=== PATIENT | female | born 1980 | race African-American/Black ===

== ENCOUNTER 2016-07-20 18:43 | Emergency (ER) | payer BC, OTHER ==
[~2016-07-20] VITALS: Ht 188 cm; Wt 181.4 kg
[~2016-07-20 18:43] MED LIST: ACIPHEX 20 MG T20 MG PO; ADIPEX-P37.5 M1 PO; AMBIEN 5 MG TABL5 M1 PO; APAP500; AZITHROMYCIN 2250 MG PO; BACTRIM DS TAB1 EACH PO; BISACODYL SUPP10 MG RECTAL; COLACE 100 MG100 MG PO; CYCLOBENZAPRINE5 MG PO; CYMBALTA30 MG PO; DURAGESIC1 EAC2 TRANSDERM; FENTANYL PATCH75 MCG; FLEXERIL; FLEXERIL PO; HYDROCODONE-AP1 EAC6 PO; HYDROCODONE-APA1 TA1 PO; HYSINGLA ER30 MG PO; IBUPROFEN 800800 M1 PO; LASIX 20 MG TAB20 MG PO; LOMOTIL TABLET1 EACH PO; LYRICA 50 MG50 MG PO; MEDROL DOSPAK21 TA1 PO; METHADONE HCL 110 M1 PO; MILK OF MA2400 MG/10 PO; MIRALAX17 GM PO; MORPHINE SULFAT60 M1 PO; MS CONTIN15 MG PO; NABUMETONE 500500 M1 PO; NAPROSYN500 MG PO; NORCO 5-325 TA1 EACH PO; ONDANSETRON HCL4 M2 PO; PERCOCET 10-321 EACH PO; PHENERGAN25 MG RE; PREDNISONE 20 M20 MG PO; PREVACID; PROCTOCREAM-HC30 G1 RC; RANITIDINE 150150 MG PO; SENOKOT-S1 TA1 PO; SPIRONOLACTONE50 MG PO; TIZANIDINE HCL4 M1 PO; ULTRA-LIGHT RO1 EACH MC; ULTRAM 50MG TAB50 MG PO; VALIUM2 MG PO; VALIUM5 MG PO; VICODIN 5-5001 EACH PO; ZOFRAN4 MG PO
[2016-07-20] MEDS ORDERED: FLEXERIL PO (18:47)
[2016-07-20] MEDS ORDERED: NORCO 10-325 T1 EACH PO (18:48)
[2016-07-20] MEDS ORDERED: ALEVE220 M1 PO (18:48)
[2016-07-20] MEDS ORDERED: NORCO 5-325 TA1 EACH PO (20:07)
[2016-07-20] MEDS ORDERED: CYCLOBENZAPRINE10 MG PO (20:11)
[2016-07-20] MEDS ORDERED: PREDNISONE 20 M20 MG PO (20:11)
[2016-07-20 20:48] VITALS: BP 157/100
== END 2016-07-20 20:49 | disposition home or self-care (01) ==
LOC: ER 18:43
DX: M51.25 Other intervertebral disc displacement, thoracolumbar region (principal); M19.90 Unspecified osteoarthritis, unspecified site; K21.9 Gastro-esophageal reflux disease without esophagitis; Z90.710 Acquired absence of both cervix and uterus; D86.9 Sarcoidosis, unspecified; Z88.6 Allergy status to analgesic agent; Z88.8 Allergy status to other drugs, medicaments and biological substances

== ENCOUNTER → 2016-10-28 | Outpatient (CLI) | payer BC, OTHER ==
[~2016-10-28] VITALS: Ht 188 cm; Wt 206.8 kg
[~2016-10-28] MED LIST changes: +ALEVE220 M1 PO; +CYCLOBENZAPRINE10 MG PO; +NORCO 10-325 T1 EACH PO
--- NOTE | ~2016-10-28 | HPC ---
[facility] [place] [address] PAIN MANAGEMENT CONSULTATION Name: UCHE TRAN Room #: REG [facility] Joel.#: [id number] Admission: 10/28/16 Attend Phys: Naun Moseley DO Discharge: Date of : 76 Report #: [id number] THIS REPORT FOR: //name// CC: Naun Holley MD DATE OF SERVICE: 10/28/2016 CHIEF COMPLAINT: Right hip pain. HISTORY OF PRESENT ILLNESS: As you know, the patient is a very pleasant, severely morbidly obese 36-year-old female who returns today in followup visit with continued right hip pain. As you are aware, the patient is planning to undergo gastric bypass surgery this year after a significant amount of weight loss according to the patient over 200 pound weight loss. She will then be a candidate for right total hip arthroplasty. She returns today in followup visit with continued right hip pain, requesting an intraarticular hip injection, she received excellent benefit with our previous injection one year ago. She returns today in followup visit requesting to undergo this procedure again today. She is placing pain today at 9/10, states her pain is constant, shooting, aching, crushing, throbbing, stabbing and tender, exacerbated with walking, activities, lying down, any kind of ADLs, improves with medications, heat, cold compresses, massage, repositioning and previous injections. She returns for an intraarticular right hip injection. ALLERGIES: SERTRALINE AND TRAMADOL. CURRENT MEDICATIONS: Cyclobenzaprine, hydrocodone, naproxen sodium and ytrl-bpe-lgarziu nonsteroidal anti-inflammatories. SOCIAL HISTORY: The patient denies tobacco, IV or illicit drug use. Admits to occasional alcoholic beverage. She is accompanied by significant other. IMAGING: No new imaging available. PHYSICAL EXAMINATION: VITAL SIGNS: Blood pressure 131/88, pulse 93, respiratory rate 22, unlabored. The patient is 100% on room air, height 6 feet 2 inches tall, weight 456 pounds, BMI calculated at 58.5. GENERAL: Well-developed, well-nourished, well-hydrated severely morbidly obese 36-year-old female appearing her stated age, placing her pain score at approximately 9/10. HEENT: Normocephalic, atraumatic. Pupils are equal, round, reactive to light. Extraocular muscles are intact. Sclerae nonicteric without injection. NEUROLOGIC: Cranial nerves 2-12 grossly intact. Speech is fluent. [address] [address] PAIN MANAGEMENT CONSULTATION Name: UCHE TRAN Room #: REG [facility]#: [id number] Admission: 10/28/16 Attend Phys: Naun Moseley DO Discharge: Date of : 78 Report #: [id number] EXTREMITIES: Show no clubbing, no cyanosis. There is 1+ nonpitting lower extremity edema. MUSCULOSKELETAL: Seated straight leg raising negative. Supine straight leg raising causes right hip pain. Tomer's test positive right, negative left. Gait is antalgic favoring right lower extremity. ASSESSMENT: 1. Right hip pain. 2. Severe osteoarthritis of the right hip. 3. Morbid obesity. 4. Chronic intractable pain. PLAN: 1. The patient returns today in followup visit requesting to undergo a right intra-articular hip injection under fluoroscopic guidance. She has done very well with previous intraarticular hip injections, hopeful to see similar improvement. She does have plans to undergo gastric bypass surgery later this year. After the gastric bypass surgery is complete and she begins to lose a significant amount of weight, she has been advised by Orthopedics that there is a possibility of a right total hip arthroplasty. The patient is excited to get moving with weight loss, so that she can obtain this right hip arthroplasty and improve her overall pain. She is making decisions in her diet currently to adjust for weight loss. We are hopeful that the patient will be able to undergo this gastric bypass sooner than later and this will start to alleviate some of the symptoms she has been experiencing from the right hip. We have consented that the patient undergo right intraarticular hip injection today. She has been advised the risks and benefits. 2. The patient was advised risks and benefits of a right intra-articular hip injection. These risks include but are not necessarily limited to bleeding, bruising, infection, worsening pain, no relief of pain, also risk of temporary or permanent muscle weakness, temporary or permanent nerve damage, possible paralysis and joint destruction. The patient states understood and wished to proceed. 3. No medication changes were made at today's visit. We did take the liberty of refilling her hydrocodone therapy. We have given the patient hydrocodone 5/325 one tab every 6 hours p.r.n. for pain. We have given the patient #60 tablets, advised the patient to take the medication only as directed. 4. The patient will return to our clinic on an as needed basis for the next in the series of right intraarticular hip injections. DESCRIPTION OF PROCEDURE: Right intraarticular hip injection under fluoroscopic guidance. After obtaining written consent, the patient was taken back to fluoroscopy suite, placed in supine position. The patient had a pillow placed under her knees for comfort. The image intensifier (C-arm) was then placed over the right [address] [address] PAIN MANAGEMENT CONSULTATION Name: UCHE TRAN Room #: REG [facility]#: [id number] Admission: 10/28/16 Attend Phys: Naun Moseley DO Discharge: Date of : 76 Report #: [id number] hip and AP imaging allowed visualization of the hip joint. Skin overlying the area was then prepped and draped in aseptic fashion using chlorhexidine. A 27-gauge 1-1/4 inch needle was then used to anesthetize skin and subcutaneous tissue with 3 mL of 1% lidocaine. A 20-gauge 6-inch spinal needle with bent tip was advanced towards the right hip under fluoroscopic guidance. Target site of the injection was the proximal portion of the femoral head. Once the joint was entered and bone was contacted, needle was retracted approximately 1 mm and aspiration noted to be negative for heme. One mL of Omnipaque was then injected demonstrating excellent right hip arthrogram. After negative aspiration for heme, 5 mL of a solution containing 1 mL 40 mg per mL, 40 mg total triamcinolone and 4 mL bupivacaine 0.5% was injected slowly. Needle retracted alf, flushed with 1 mL of bupivacaine 0.5% and removed. Sterile bandage was then placed over injection site. No new motor deficits present in lower extremity following the procedure. The patient tolerated procedure well, carefully escorted to the recovery in stable condition. No apparent complications. After meeting discharge criteria, the patient discharged home. By: 0733 [id number] Naun Moseley DO /nt
[2016-10-28 09:00] VITALS: BP 131/88
== END | disposition home or self-care (01) ==
LOC: PAIN 07:04
DX: M16.11 Unilateral primary osteoarthritis, right hip (principal); E66.01 Morbid (severe) obesity due to excess calories; G89.29 Other chronic pain; Z68.43 Body mass index [BMI] 50.0-59.9, adult; Z88.8 Allergy status to other drugs, medicaments and biological substances; Z98.890 Other specified postprocedural states

== ENCOUNTER → 2017-01-29 | Outpatient (CLI) | payer BC, OTHER ==
[~2017-01-29] MED LIST changes: +HYDROCODONE-ACE15 ML; +HYDROXYCHLOROQ200 M1 PO; +MOBIC15 MG PO; +SENNA-DOCUSATE1 EACH PO
--- NOTE | ~2017-01-29 | 2DMMODE ---
[facility] [address] [place] [address] 2 D/M-MODE ECHOCARDIOGRAM Name: MARCERNESTOEvette WATKINS Room #: REG CL [facility]#: [id number] Admission: 01/29/17 Attend Phys: Clive Holley, Discharge: Date of : 76 Date of Service: 01/29/17 1152 Report #: [id number] THIS REPORT FOR: //name// APPROVED REPORT Study performed: 01/29/2017 11:06:43 EXAM: Comprehensive 2D, Doppler, and color-flow Echocardiogram Patient Location: Out-Patient Status: routine BSA: 2.92 HR: 70 bpm Rhythm: NSR Other Information Study Quality: Adequate Indications MALDONADO. Pre-Op, morbid obesity 2D Dimensions RVDd: 32.71 mm LVEF(%): 56.82 (>50%) IVSd: 11.43 (7-11mm) LVOT Diam: 22.85 (18-24mm) LVDd: 47.79 mm PWd: 10.05 (7-11mm) Ascending Ao: 31.59 (22-36mm) LVDs: 33.56 (25-40mm) Aortic Root: 32.28 mm Vallejo's LVEF: 56.82 % Volumes Left Atrial Volume (Systole) Single Plane 4CH: 33.24 mL Single Plane 2CH: 50.29 mL LA ESV Index: 16.00 mL/m2 Aortic Valve AoV Peak Trevor.: 1.45 m/s AO Peak Gr.: 8.36 mmHg LVOT Max P.42 mmHg LVOT Max V: 1.27 m/s PAULETTE Vmax: 3.59 cm2 Mitral Valve E/A Ratio: 1.4 MV Decel. Time: 237.04 ms [facility] [address] [place] [address] 2 D/M-MODE ECHOCARDIOGRAM Name: MARCERNESTO IBARRAEvette [facility] Room #: REG [facility]#: [id number] Admission: 01/29/17 Attend Phys: Clive Holley, Discharge: Date of : 76 Date of Service: 01/29/17 1152 Report #: [id number] MV E Max Trevor.: 0.76 m/s MV A Trevor.: 0.54 m/s MV PHT: 68.74 ms IVRT: 72.66 ms Pulmonary Vein P Vein S: 0.58 m/s P Vein D: 0.36 m/s P Vein S/D Ratio: 1.61 Tricuspid Valve TR Peak Trevor.: 2.19 m/s RAP Estimate: 5.00 mmHg TR Peak Gr.: 19.13 mmHg PA Pressure: 24.00 mmHg Left Ventricle The left ventricle is normal size. There is normal LV segmental wall motion. There is normal left ventricular wall thickness. Left ventricular systolic function is normal. LVEF is 55%. Right Ventricle The right ventricle is normal size. The right ventricular systolic function is normal. Atria The left atrium size is normal. The right atrium size is normal. Aortic Valve The aortic valve is normal in structure. No aortic regurgitation is present. There is no aortic valvular stenosis. Mitral Valve The mitral valve is normal in structure. There is no mitral valve regurgitation noted. No evidence of mitral valve stenosis. Tricuspid Valve The tricuspid valve is normal in structure. Trace tricuspid regurgitation. Estimated PAP is 24mmHg Pulmonic Valve Pulmonic valve is not well visualized. Great Vessels The aortic root is normal in size. The ascending aorta is normal in size. IVC is normal in size and collapses >50% with [facility] [address] [place] [address] 2 D/M-MODE ECHOCARDIOGRAM Name: ERNESTO TRANEvette [facility] Room #: REG CL Kia#: [id number] Admission: 01/29/17 Attend Phys: Clive Holley, Discharge: Date of : 76 Date of Service: 01/29/17 1152 Report #: [id number] inspiration. Pericardium There is no pericardial effusion. <Conclusion> Left ventricular systolic function is normal. There is normal LV segmental wall motion. LVEF 55%. Structural valve disease was absent. No significant regurgitant or stenotic lesions There is no pericardial effusion. <ELECTRONICALLY SIGNED> By: Vladislav Schmidt MD, FAC 01/29/17 1152 115 115 Vladislav Schmidt MD, [facility] /INF
== END ==
LOC: CV 08:01
DX: R06.00 Dyspnea, unspecified (principal)

== ENCOUNTER 2017-03-30 14:32 | Inpatient (IN) | payer BC, OTHER ==
[~2017-03-30 14:32] MED LIST changes: +LIDOCAINE35.44 GM TOP; +RABEPRAZOLE SOD20 MG PO
[2017-03-30 16:40] VITALS: BP 150/98
[2017-03-30] MEDS ORDERED: HYSINGLA ER20 MG PO (18:20)
[2017-03-30 20:00] VITALS: BP 106/63
[2017-03-31 03:58] VITALS: BP 102/63
[2017-03-31 08:15] VITALS: BP 144/87
[2017-03-31 15:20] VITALS: BP 120/69
[2017-03-31 16:43] VITALS: BP 120/69
[2017-03-31 19:40] VITALS: BP 155/82
[2017-04-01 03:29] VITALS: BP 131/84
[2017-04-01 09:00] VITALS: BP 143/97
[2017-04-01] MEDS ORDERED: OXYCODONE HCL30 MG PO (13:00)
[2017-04-01 14:56] VITALS: BP 120/69
== END 2017-04-01 15:10 | disposition home or self-care (01) | DRG 554 ==
LOC: RAD 14:32 → 4E 16:10 → ENTRNSPT 04-01 15:03 → EDTRNSPTSTS 04-01 15:06 → 4E 04-01 15:10
DX: M16.12 Unilateral primary osteoarthritis, left hip (principal); M48.00 Spinal stenosis, site unspecified; K21.9 Gastro-esophageal reflux disease without esophagitis; E66.01 Morbid (severe) obesity due to excess calories; D86.9 Sarcoidosis, unspecified; Z79.899 Other long term (current) drug therapy; Z90.710 Acquired absence of both cervix and uterus; Z87.891 Personal history of nicotine dependence; Z88.8 Allergy status to other drugs, medicaments and biological substances
CPT/HCPCS: 10783

== ENCOUNTER → 2017-06-17 | Outpatient (CLI) | payer BC, OTHER ==
[~2017-06-17] MED LIST changes: +COZAAR 50 MG TA50 M2 PO; +FOLIC ACID1 MG PO; +HYSINGLA ER20 MG PO; +METHOCARBAMOL500 M1 PO; +METHOTREXATE 22.5 MG PO; +NEURONTIN 300300 M1 PO; +NORVASC2.5 MG PO; +OXYCODONE HCL 55 MG PO; +OXYCODONE HCL30 MG PO; +OXYCONTIN20 M1 PO; +OXYCONTIN40 MG PO; +TOPROL XL50 MG PO; +TORSEMIDE20 MG PO; +VENTOLIN HFA 1818 GM INH; +XTAMPZA ER36 MG PO; +ZANAFLEX4 MG PO
== END ==
LOC: RAD 12:40
DX: D86.9 Sarcoidosis, unspecified (principal)

== ENCOUNTER → 2017-06-24 | Outpatient (CLI) | payer BC, OTHER | LOC: CAT 08:19 | DX: D86.9 Sarcoidosis, unspecified (principal); R91.1 Solitary pulmonary nodule; M16.0 Bilateral primary osteoarthritis of hip; M47.896 Other spondylosis, lumbar region; Z88.6 Allergy status to analgesic agent; Z88.8 Allergy status to other drugs, medicaments and biological substances ==

== ENCOUNTER 2017-08-31 16:17 | Inpatient (IN) | payer BC, OTHER ==
[~2017-08-31] VITALS: Ht 188 cm; Wt 199.1 kg
--- NOTE | ~2017-08-31 | HC ---
[facility] [place] [address] CONSULTATION Name: UCHE TRAN Room #: 424-P ADM IN M.R.#: [id number] Admission: 08/31/17 Attend Phys: Clive Holley MD Discharge: Date of : 78 Report #: [id number] THIS REPORT FOR: //name// CC: Aakash Holley DATE OF SERVICE: 09/02/2017 CHIEF COMPLAINT: Bilateral lower extremity ulcerations, history of sarcoidosis. HISTORY OF PRESENT ILLNESS: This is a 36-year-old morbidly obese female patient with a history of pulmonary sarcoidosis who was admitted to the hospital with progressive shortness of breath. She also is having increasing pain, swelling and ulcerations in her legs with hard nodules. She has been seen by Dr. Michaels in the past for this. Apparently, has had recent biopsies, results of which are not known. She has been followed by Dr. Alvarez Jernigan as well. She is also wishing to have bariatric surgery in order to lose weight, has been seen by Dr. Benz. She relates that there has been some reluctance from her [place] point of view for proceeding with bariatric surgery. The patient has been on hydroxychloroquine for her sarcoidosis. She has previously been on steroids, not presently though. It is reported in her admission documentation that previous biopsies did show evidence of sarcoid skin disease. PHYSICAL EXAMINATION: VITAL SIGNS: At this time include pulse 91, respiratory rate 18, blood pressure 134/95, temperature 97.8. GENERAL: This is a chronically ill-appearing female patient who appears to be in minimal distress. HEENT: Head normocephalic. Nose and throat clear. NECK: Supple. LUNGS: Diminished. HEART: Slightly distant. ABDOMEN: Obese, nontender. EXTREMITIES: Demonstrates palpable distal pulses. There is 2+ edema bilaterally. She has multiple ulcerations with crusting and some nodularity to both lower extremities, more so on the left than on the right and more so posteriorly. CLINICAL IMPRESSION: 1. 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 2. Shortness of breath, sarcoid versus congestive heart failure. 3. Morbid obesity. RECOMMENDATIONS: At this point in time, we will use topical Silvadene and [place] [id number] CONSULTATION Name: UCHE TRAN [facility] Room #: 424-P ADM IN M.R.#: [id number] Admission: 08/31/17 Attend Phys: Clive Holley MD Discharge: Date of : 78 Report #: [id number] morphine compound with Xeroform gauze, Kerlix, Anup wraps to both lower extremities. Would appreciate additional input regarding her possibility of bariatric surgery. We will continue to follow her closely. I appreciate being asked to see her in consultation. <ELECTRONICALLY SIGNED> By: Rashi Gutierrez MD 09/03/17 1131 58 Rashi Gutierrez MD /darcie
--- NOTE | ~2017-08-31 | P ---
[facility] [place] [address] PROCEDURE REPORT Name: UCHE TRAN Room #: 424-P ADM IN M.R.#: [id number] Admission: 08/31/17 Attend Phys: Clive Holley MD Discharge: Date of : 78 Report #: [id number] THIS REPORT FOR: //name// CC: Aakash Price MD DATE OF SERVICE: 09/03/2017 PROCEDURE: Fiberoptic bronchoscopy with fluoroscopic-guided transbronchial biopsies in the right lower lobe and bronchial lavage in the right middle lobe. INDICATION: Pulmonary nodules, need for immunosuppression of sarcoidosis, evaluate for active infectious process. ASA classification class 2. PROCEDURE NOTATION: After discussing risks and benefits of the planned procedure with the patient, she desired to proceed. After obtaining informed consent, the patient was placed in wastewater analyst lab analyst 3 where she was placed on continuous cardiopulmonary monitoring and supplemental oxygen. She was given 10 mL of 2% lidocaine nebulized to anesthetize the upper respiratory tract. Once complete, she received conscious sedation, a total of 6 mg of Versed and 25 mcg of fentanyl were titrated during the procedure to provide adequate sedation. Once accomplished, bronchoscope was passed through an oral biteblock until the vocal cords were visualized. Vocal cords appeared normal both before and after procedure. 1% lidocaine was instilled in the vocal cords to provide topical anesthesia. Bronchoscope was then passed in the trachea, 1% lidocaine was instilled in the tracheobronchial tree bilaterally to provide topical anesthesia. Once complete, airways were surveyed. FINDINGS: Mainstem, lobar, segmental and subsegmental bronchi were all explored and appeared patent with no significant anatomic variation or endobronchial disease. No significant secretions noted. The right lower lobe was instrumented with the bronchoscope where fluoroscopy was utilized to obtain several small biopsies in the right lower lobe. Bronchial lavage was performed in the right middle lobe at the end of procedure and sent for cytologic and microbiologic tests as well as cell count with differential. No significant bleeding. The patient tolerated well. No noted complications. Total fluoroscopy time of 4.4 minutes. IMPRESSION: Multiple pulmonary nodules, history of sarcoidosis, need for [facility] [address] [place] [address] PROCEDURE REPORT Name: UCHE TRAN [facility] Room #: 424-P [facility].#: [id number] Admission: 08/31/17 Attend Phys: Clive Holley MD Discharge: Date of : 78 Report #: [id number] immunosuppression, status post bronchoscopy, transbronchial biopsy and bronchoalveolar lavage. PLAN: Await microbiologic histopathologic tests. <ELECTRONICALLY SIGNED> By: Qamar Elizondo MD 09/04/17 1029 1025 1103 Qamar Elizondo MD /nt
--- NOTE | ~2017-08-31 | PATH ---
[facility] [address] [place] [address] PATHOLOGY RPT PROCEDURE Name: UCHE TRAN Room #: 424-P DIS IN M.R.#: [id number] Admission: 08/31/17 Date of : 76 Discharge: 09/08/17 Report #: [id number] Path Case #: [id number] Note [facility] Accession Number: [id number] TESTS RESULT FLAG UNITS REF RANGE LAB Clinician Provided Cytology Information No. of containers..01 Other (Miscellaneous) Source: 01 RML BAL DIAGNOSIS: RML BAL NEGATIVE FOR MALIGNANT CELLS. NORMAL BRONCHIAL CELLS AND MACROPHAGES ARE PRESENT. FUNGAL ORGANISMS MORPHOLOGICALLY CONSISTENT WITH "NILAY" SPECIES ARE PRESENT. Signed out by: 02 Mary Anne Bueno MD, Pathologist NPI- [id number] Performed by: 03 Leni Neely, Medical Sociologist ([facility]) Gross description: 01 8ML, COLORLESS, CLOUDY /LCS FLAG LEGEND: L-Low Normal,H-High Normal,LL-Alert Low,HH-Alert High <-Panic Low,>-Panic High,A-Abnormal,AA-Critical Abnormal Performed at: [address] [place] [address] Jhonathan Rawls MD, [address] [address] Mary Anne Bueno MD, 03 [place] [address] [address] John Suero MD, A duplicate report has been generated due to demographic updates. Performed at: [address] [id number] MD Jhonathan Rawls MD Phone: [phone]
--- NOTE | ~2017-08-31 | EKG ---
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1980 Requested By: Clive Holley Order Number: [id number] MD: Kevin Denise Measurements Intervals [place] Rate: 87 P: 50 OR: 191 QRS: 25 QRSD: 91 T: 37 QT: 391 QTc: 471 Interpretive Statements Sinus rhythm Probable left atrial enlargement Abnormal R-wave progression, early transition Compared to ECG 08/31/2017 17:01:42 No significant changes Electronically Signed On 09-04-2017 7:47:31 CDT by Kevin Denise [email or web address] <ELECTRONICALLY SIGNED> By: Kevin Denise MD 09/04/17 [id number] Kevin Denise MD /[facility]
--- NOTE | ~2017-08-31 | 2DMMODE ---
[facility] [address] [place] [address] 2 D/M-MODE ECHOCARDIOGRAM Name: MARCUCHE RUDYJeremiah Room #: 424-P ADM IN M.R.#: [id number] Admission: 08/31/17 Attend Phys: Clive Holley, Discharge: Date of : 76 Date of Service: 09/01/17 1000 Report #: [id number] THIS REPORT FOR: //name// APPROVED REPORT Study performed: 09/01/2017 07:31:24 EXAM: Comprehensive 2D, Doppler, and color-flow Echocardiogram Patient Location: Bedside Room #: 424 Status: routine BSA: 2.98 HR: 77 bpm BP: 131/64 mmHg Rhythm: NSR Other Information Study Quality: Adequate Technically limited study due to morbid obesity. No mobility. Indications Pulmonary HTN, short of air. Hx: sarcoidosis, morbid obesity. 2D Dimensions RVDd: 40.41 mm LVEF(%): 50.44 (>50%) IVSd: 10.24 (7-11mm) LVOT Diam: 21.97 (18-24mm) LVDd: 50.38 mm PWd: 10.10 (7-11mm) Ascending Ao: 32.12 (22-36mm) LVDs: 37.40 (25-40mm) Aortic Root: 34.05 mm Vallejo's LVEF: 50.44 % Volumes Left Atrial Volume (Systole) Single Plane 4CH: 34.10 mL Single Plane 2CH: 54.91 mL LA ESV Index: 16.00 mL/m2 Aortic Valve AoV Peak Trevor.: 1.65 m/s AO Peak Gr.: 10.83 mmHg LVOT Max P.87 mmHg LVOT Max V: 1.40 m/s PAULETTE Vmax: 3.23 cm2 Mitral Valve [facility] [employer] [place] [address] 2 D/M-MODE ECHOCARDIOGRAM Name: MARCERNESTOEvette [facility] Room #: 424-P [facility] IN M.R.#: [id number] Admission: 08/31/17 Attend Phys: Clive Holley, Discharge: Date of : 76 Date of Service: 09/01/17 1000 Report #: [id number] E/A Ratio: 1.1 MV Decel. Time: 182.40 ms MV E Max Trevor.: 0.90 m/s MV A Trevor.: 0.79 m/s MV PHT: 52.90 ms IVRT: 79.58 ms Pulmonary Valve PV Peak Trevor.: 1.15 m/s PV Peak Gr.: 5.30 mmHg Tricuspid Valve TR Peak Trevor.: 2.42 m/s TR Peak Gr.: 23.47 mmHg Left Ventricle The left ventricle is normal size. There is normal LV segmental wall motion. There is normal left ventricular wall thickness. Left ventricular systolic function is normal. LVEF is >55%. Moderate diastolic dysfunction is present (pseudonormal filling). Right Ventricle The right ventricle is normal size. The right ventricular systolic function is normal. Atria The left atrium size is normal. The right atrium size is normal. Aortic Valve The aortic valve is grossly normal in structure. No aortic regurgitation is present. There is no aortic valvular stenosis. Mitral Valve The mitral valve is normal in structure. Trace mitral regurgitation. No evidence of mitral valve stenosis. Tricuspid Valve The tricuspid valve is normal in structure. Trace to mild tricuspid regurgitation. Estimated PAP is 23mmHg plus the right atrial pressure. Pulmonic Valve Pulmonic valve is not well [place] [address] 2 D/M-MODE ECHOCARDIOGRAM Name: UCHE TRAN [facility] Room #: 424-P [facility] IN M.R.#: [id number] Admission: 08/31/17 Attend Phys: Clive Holley, Discharge: Date of : 76 Date of Service: 09/01/17 1000 Report #: [id number] The aortic root is normal in size. The ascending aorta is normal in size. IVC is not well visualized. Pericardium There is no pericardial effusion. <Conclusion> The left ventricle is normal size. LVEF is >55%. Moderate diastolic dysfunction is present (pseudonormal filling). The right ventricle is normal size. The left atrium size is normal. The aortic valve is grossly normal in structure. Trace mitral regurgitation. Trace to mild tricuspid regurgitation. Estimated PAP is 23mmHg plus the right atrial pressure. The aortic root is normal in size. There is no pericardial effusion. <ELECTRONICALLY SIGNED> By: Dank Bell MD, FACC 09/01/17 1000 1000 1000 Dank Bell MD, FACC /INF
--- NOTE | ~2017-08-31 | PATH ---
[facility] [address] [address] PATHOLOGY RPT PROCEDURE Name: UCHE TRAN [facility] Room #: 424-P ADM IN M.R.#: [id number] Admission: 08/31/17 Date of : 76 Discharge: Report #: [id number] Path Case #: [id number] [facility] Accession Number: [id number] . 01 Material submitted: . BIOPSY, RIGHT LOWER LOBE . 01 Clinical history: . Dyspnea, sarcoidosis, leg wounds . 02 Diagnosis: Bronchus, RLL, biopsy: - Superficial fragments of benign bronchial epithelium. - Negative for malignancy. (IUV; 09/07/17) QRQ/09/07/2017 . 02 Electronically signed: . Mary Anne Bueno MD, Pathologist NPI- [id number] . 01 Gross description: . Received in formalin labeled "Uche Alvarez, biopsy RLL," are several minute fragments of dark isaac soft tissue measuring approximately 0.2 x 0.1 x 0.1 cm in aggregate dimensions. The specimen is filtered and entirely submitted in cassette A1. Due to the minute nature of the specimen, it may not survive processing. (TSD; 09/03/2017) TOB/TOB . 02 CPT . 865469 Performed at: [address], [place] [id number] MD Jhonathan Rawls MD Phone: [phone] Performed at: [address] [id number] MD Mary Anne Bueno MD Phone: [phone]
--- NOTE | ~2017-08-31 | EKG ---
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
--- NOTE | ~2017-08-31 | PATH ---
[facility] [address] [place] [address] PATHOLOGY RPT PROCEDURE Name: [facility] Room #: 424-P [facility] IN M.R.#: [id number] Admission: 08/31/17 Date of : 76 Discharge: 09/08/17 Report #: [id number] Path Case #: [id number] Note [facility] Accession Number: [id number] TESTS RESULT FLAG UNITS REF RANGE LAB Clinician Provided Cytology Information No. of containers..01 Other (Miscellaneous) Source: SPUTUM DIAGNOSIS: 02 SPUTUM NEGATIVE FOR MALIGNANT CELLS. PREDOMINANTLY SQUAMOUS CELLS ARE PRESENT. INADEQUATE, NO CELLS FROM PULMONARY SOURCE FOUND IN THIS SPECIMEN. Signed out by: 02 Mary Anne Bueno MD, Pathologist NPI- [id number] Performed by: 03 Leni Neely, Director Retail Brand Development ([facility]) Gross description: 01 1ML, COLORLESS, CLEAR /LCS FLAG LEGEND: L-Low Normal,H-High Normal,LL-Alert Low,HH-Alert High <-Panic Low,>-Panic High,A-Abnormal,AA-Critical Abnormal Performed at: [address] [place] [address] Jhonathan Rawls MD, [address] [address] Mary Anne Bueno MD, [address] [address] John Suero MD, A duplicate report has been generated due to demographic updates. Performed at: [address], [place] [id number] MD Jhonathan Rawls MD Phone: [phone]
[~2017-08-31 16:17] MED LIST changes: -COZAAR 50 MG TA50 M2 PO; -FOLIC ACID1 MG PO; -METHOCARBAMOL500 M1 PO; -METHOTREXATE 22.5 MG PO; -NEURONTIN 300300 M1 PO; -NORVASC2.5 MG PO; -OXYCODONE HCL 55 MG PO; -OXYCONTIN20 M1 PO; -OXYCONTIN40 MG PO; -TOPROL XL50 MG PO; -TORSEMIDE20 MG PO; -VENTOLIN HFA 1818 GM INH; -XTAMPZA ER36 MG PO; -ZANAFLEX4 MG PO
[2017-08-31 16:18] VITALS: BP 145/95
[2017-08-31] MEDS ORDERED: OXYCONTIN20 M1 PO (16:32)
[2017-08-31 17:03] LABS: ABSOLUTE NEUTROPHILS 2.4 thou/uL (1.4-8.2); BASOPHILS 0.6 % (0.0-2.0); EOSINOPHILS 1.9 % (0.0-3.0); HEMATOCRIT 37.2 % (37.0-47.0); HEMOGLOBIN 12.1 gm/dL (12.0-15.0); LYMPHOCYTES 35.5 % (24.0-44.0); MCH 23.4 pg (26.0-34.0); MCHC 32.4 g/dL (28.0-37.0); MCV 72.2 fL (80.0-100.0); MONOCYTES 10.3 % (1.0-8.0); PLATELET COUNT 290 thou/uL (150-400); POLYS 51.7 % (36.0-66.0); RBC 5.16 mil/uL (4.20-5.00); RDW 16.1 % (10.5-14.5); WBC 4.7 thou/uL (4.0-11.0)
[2017-08-31 17:11] LABS: CALCIUM 9.3 mg/dL (8.5-10.1); CREATININE 0.9 mg/dL (0.6-1.0)
[2017-08-31 17:26] LABS: ALBUMIN 3.4 g/dL (3.4-5.0); TOTAL BILIRUBIN 0.8 mg/dL (<0.1-1.0); TOTAL PROTEIN 7.3 g/dL (6.4-8.2)
[2017-08-31 19:04] LABS: URINE BILIRUBIN NEGATIVE (Negative); URINE BLOOD NEGATIVE (Negative); URINE CLARITY CLEAR; URINE COLOR YELLOW; URINE GLUCOSE-RANDOM* NEGATIVE (Negative); URINE KETONES NEGATIVE (Negative); URINE NITRITE-REFLEX NEGATIVE (Negative); URINE PROTEIN (DIPSTICK) NEGATIVE (Negative); URINE UROBILINOGEN 0.2 E.U./dl (0.2-1.0)
[2017-08-31 19:06] LABS: URINE LEUKOCYTES-REFLEX TRACE (Negative)
[2017-08-31 20:59] VITALS: BP 115/72
[2017-08-31 21:07] VITALS: BP 129/78
[2017-09-01] VITALS: BP 123/80
[2017-09-01 04:50] VITALS: BP 131/64
[2017-09-01 07:30] VITALS: BP 145/130
[2017-09-01 14:45] LABS: HEMOGLOBIN 12.1 gm/dL (12.0-15.0); MCH 23.7 pg (26.0-34.0); MCHC 32.6 g/dL (28.0-37.0); MCV 72.7 fL (80.0-100.0); RBC 5.09 mil/uL (4.20-5.00); RDW 16.2 % (10.5-14.5); WBC 8.9 thou/uL (4.0-11.0)
[2017-09-01 15:00] LABS: ALBUMIN 3.3 g/dL (3.4-5.0); CALCIUM 9.3 mg/dL (8.5-10.1); MAGNESIUM 2.1 mg/dL (1.8-2.4); POTASSIUM 4.3 mmol/L (3.5-5.1); TOTAL BILIRUBIN 0.6 mg/dL (<0.1-1.0); TOTAL PROTEIN 7.4 g/dL (6.4-8.2)
[2017-09-01 15:02] LABS: CHOLESTEROL 170 mg/dL (<200); HDL CHOLESTEROL 56 mg/dL (>40); LDL CHOLESTEROL 104 mg/dL (<100); TRIGLYCERIDE 54 mg/dL (<150); VLDL 11 mg/dL (<40)
[2017-09-01 19:55] VITALS: BP 144/91
[2017-09-02 03:55] VITALS: BP 113/69
[2017-09-02 08:49] VITALS: BP 144/66
[2017-09-02 15:51] VITALS: BP 136/92
[2017-09-02 19:20] VITALS: BP 134/95
[2017-09-03 03:40] VITALS: BP 138/81
[2017-09-03 07:29] VITALS: BP 175/90
[2017-09-03 11:50] VITALS: BP 148/75
[2017-09-03 12:46] LABS: SOURCE BAL
[2017-09-03 12:48] LABS: BF NUCLEATED CELLS 236; BF RBC 2442; CLARITY CLOUDY; COLOR COLORLESS; TOTAL VOLUME 15 mL
[2017-09-03 12:52] LABS: BF MACROPHAGE 10; BF NEUTROPHILS 5
[2017-09-03 18:07] LABS: HISTOPLASMA MYCELIAL-ID Negative (Negative)
[2017-09-03 20:00] VITALS: BP 135/85
[2017-09-03 22:07] LABS: HISTOPLASMA MYCELIAL-CF Negative (Neg:<1:2)
[2017-09-04 00:10] LABS: HIV ANTIBODY Non Reactive (Non Reactive)
[2017-09-04 04:00] VITALS: BP 135/87
[2017-09-04 08:06] VITALS: BP 142/81
[2017-09-04 15:26] VITALS: BP 123/66
[2017-09-04 20:00] VITALS: BP 136/87
[2017-09-05 05:00] VITALS: BP 128/78
[2017-09-05 07:51] VITALS: BP 141/86
[2017-09-05 20:00] VITALS: BP 122/76
[2017-09-06 05:03] VITALS: BP 114/70
[2017-09-06 08:13] VITALS: BP 137/89
[2017-09-06 16:12] VITALS: BP 125/75
[2017-09-06 19:30] VITALS: BP 116/51
[2017-09-07 03:30] VITALS: BP 123/70
[2017-09-07] MEDS ORDERED: BACTRIM DS TAB1 EACH PO (07:54)
[2017-09-07] MEDS ORDERED: NORVASC2.5 MG PO (07:55)
[2017-09-07] MEDS ORDERED: TORSEMIDE20 MG PO (07:56)
[2017-09-07] MEDS ORDERED: COZAAR 50 MG TA50 M2 PO (07:56)
[2017-09-07 19:45] VITALS: BP 97/57
[2017-09-08 04:29] VITALS: BP 125/68
[2017-09-08 12:06] VITALS: BP 125/68
[2017-09-08 15:08] VITALS: BP 125/68
[2017-09-08 18:27] LABS: HEMOGLOBIN 13.6 gm/dL (12.0-15.0); MCH 23.3 pg (26.0-34.0); MCHC 31.7 g/dL (28.0-37.0); MCV 73.4 fL (80.0-100.0); RBC 5.86 mil/uL (4.20-5.00); RDW 16.1 % (10.5-14.5); WBC 17.4 thou/uL (4.0-11.0)
[2017-09-08 18:39] LABS: ALBUMIN 3.4 g/dL (3.4-5.0); CALCIUM 8.8 mg/dL (8.5-10.1); CREATININE 1.3 mg/dL (0.6-1.0); TOTAL BILIRUBIN 0.5 mg/dL (<0.1-1.0); TOTAL PROTEIN 7.3 g/dL (6.4-8.2)
== END 2017-09-08 18:30 | disposition home health service (06) | DRG 167 ==
LOC: ER 16:17 → 4E 20:26 → EROBS 20:26 → 4E 21:09 → ENTRNSPT 09-08 18:09 → 4E 09-08 18:30
PROVIDERS: Emergency Medicine; Family Medicine; Internal Medicine Pulmonary Disease; Nurse Practitioner Adult Health; Specialist
PROC: 0B9D8ZX Drainage of Right Middle Lung Lobe, Via Natural or Artificial Opening Endoscopic, Diagnostic (ICD-10-PCS; principal; 2017-09-03)
PROC: 0BB68ZX Excision of Right Lower Lobe Bronchus, Via Natural or Artificial Opening Endoscopic, Diagnostic (ICD-10-PCS; principal; 2017-09-03)
DX: D86.0 Sarcoidosis of lung (principal); Z68.43 Body mass index [BMI] 50.0-59.9, adult; L97.829 Non-pressure chronic ulcer of other part of left lower leg with unspecified severity; L97.819 Non-pressure chronic ulcer of other part of right lower leg with unspecified severity; L03.116 Cellulitis of left lower limb; L03.115 Cellulitis of right lower limb; I50.30 Unspecified diastolic (congestive) heart failure; I11.0 Hypertensive heart disease with heart failure; M19.90 Unspecified osteoarthritis, unspecified site; G89.29 Other chronic pain; M54.9 Dorsalgia, unspecified; K59.00 Constipation, unspecified; R91.8 Other nonspecific abnormal finding of lung field; G47.33 Obstructive sleep apnea (adult) (pediatric); M06.9 Rheumatoid arthritis, unspecified; K21.9 Gastro-esophageal reflux disease without esophagitis; E66.01 Morbid (severe) obesity due to excess calories; Z90.710 Acquired absence of both cervix and uterus; Z79.899 Other long term (current) drug therapy; Z88.8 Allergy status to other drugs, medicaments and biological substances; Z87.891 Personal history of nicotine dependence
CPT/HCPCS: 10183; 27000

== ENCOUNTER 2018-01-13 14:34 | Emergency (ER) | payer BC, OTHER ==
[~2018-01-13] VITALS: Ht 188 cm; Wt 195.1 kg
[~2018-01-13 14:34] MED LIST changes: +COZAAR 50 MG TA50 M2 PO; +METHOCARBAMOL500 M1 PO; +METHOTREXATE 22.5 MG PO; +NORVASC2.5 MG PO; +OXYCONTIN20 M1 PO; +TOPROL XL50 MG PO; +TORSEMIDE20 MG PO
[2018-01-13] MEDS ORDERED: ONDANSETRON HCL4 M2 PO (15:10)
[2018-01-13] MEDS ORDERED: XTAMPZA ER36 MG PO (15:10)
[2018-01-13] MEDS ORDERED: NEURONTIN 300300 M1 PO (15:11)
[2018-01-13] MEDS ORDERED: HYDROXYCHLOROQ200 M1 PO (15:11)
[2018-01-13] MEDS ORDERED: FOLIC ACID1 MG PO (15:12)
[2018-01-13] MEDS ORDERED: ZANAFLEX4 MG PO (15:12)
[2018-01-13] MEDS ORDERED: VENTOLIN HFA 1818 GM INH (15:13)
[2018-01-13 16:09] LABS: HEMATOCRIT 35.7 % (37.0-47.0); HEMOGLOBIN 11.5 gm/dL (12.0-15.0); MCH 25.8 pg (26.0-34.0); MCHC 32.2 g/dL (28.0-37.0); MCV 80.2 fL (80.0-100.0); RBC 4.46 mil/uL (4.20-5.00); RDW 14.8 % (10.5-14.5); WBC 6.9 thou/uL (4.0-11.0)
[2018-01-13 16:20] LABS: CALCIUM 9.2 mg/dL (8.5-10.1); POTASSIUM 3.9 mmol/L (3.5-5.1)
[2018-01-13 16:26] LABS: ALBUMIN 3.1 g/dL (3.4-5.0); TOTAL BILIRUBIN 0.5 mg/dL (<0.1-1.0); TOTAL PROTEIN 6.4 g/dL (6.4-8.2)
[2018-01-13 18:44] VITALS: BP 160/85
== END 2018-01-13 18:45 | disposition home or self-care (01) ==
LOC: ER 14:34
PROVIDERS: Emergency Medicine
DX: M54.5 Low back pain (principal); M25.552 Pain in left hip; M25.551 Pain in right hip; M19.90 Unspecified osteoarthritis, unspecified site; K21.9 Gastro-esophageal reflux disease without esophagitis; Z90.710 Acquired absence of both cervix and uterus; Z88.8 Allergy status to other drugs, medicaments and biological substances

== ENCOUNTER 2018-01-21 20:49 | Inpatient (IN) | payer BC, OTHER ==
[~2018-01-21] VITALS: Ht 188 cm; Wt 204.1 kg
[~2018-01-21 20:49] MED LIST changes: +FOLIC ACID1 MG PO; +NEURONTIN 300300 M1 PO; +VENTOLIN HFA 1818 GM INH; +XTAMPZA ER36 MG PO; +ZANAFLEX4 MG PO
[2018-01-21 20:54] VITALS: BP 135/89
[2018-01-21 21:53] LABS: HEMATOCRIT 36.2 % (37.0-47.0); HEMOGLOBIN 11.6 gm/dL (12.0-15.0); MCH 25.8 pg (26.0-34.0); MCHC 32.2 g/dL (28.0-37.0); RBC 4.52 mil/uL (4.20-5.00); RDW 15.1 % (10.5-14.5); WBC 5.3 thou/uL (4.0-11.0)
[2018-01-21 22:00] LABS: CALCIUM 8.8 mg/dL (8.5-10.1); POTASSIUM 3.8 mmol/L (3.5-5.1)
[2018-01-21 22:31] VITALS: BP 109/74
[2018-01-21 22:49] VITALS: BP 109/74
[2018-01-22 00:17] VITALS: BP 154/99
[2018-01-22 04:25] VITALS: BP 128/61
[2018-01-22 07:38] VITALS: BP 106/51
[2018-01-22 19:20] VITALS: BP 148/79
[2018-01-23 03:34] VITALS: BP 143/77
[2018-01-23 07:17] VITALS: BP 126/54
[2018-01-23 19:54] VITALS: BP 139/83
[2018-01-24 04:55] VITALS: BP 127/86
[2018-01-24 09:49] VITALS: BP 126/68
[2018-01-24 11:29] VITALS: BP 126/68
[2018-01-24] MEDS ORDERED: OXYCODONE HCL 55 MG PO (12:21)
[2018-01-24] MEDS ORDERED: OXYCONTIN40 MG PO (12:21)
== END 2018-01-24 13:46 | disposition home or self-care (01) | DRG 554 ==
LOC: ER 20:49 → EROBS 22:17 → 4E 22:17 → ENTRNSPT 01-24 13:26 → EDTRNSPTSTS 01-24 13:31 → 4E 01-24 13:46
PROVIDERS: Emergency Medicine
DX: M16.0 Bilateral primary osteoarthritis of hip (principal); Z68.43 Body mass index [BMI] 50.0-59.9, adult; M87.152 Osteonecrosis due to drugs, left femur; M87.151 Osteonecrosis due to drugs, right femur; M06.9 Rheumatoid arthritis, unspecified; K21.9 Gastro-esophageal reflux disease without esophagitis; E66.01 Morbid (severe) obesity due to excess calories; T38.0X5A Adverse effect of glucocorticoids and synthetic analogues, initial encounter; D86.0 Sarcoidosis of lung; M47.896 Other spondylosis, lumbar region; Z87.891 Personal history of nicotine dependence; Z90.710 Acquired absence of both cervix and uterus; Y92.89 Other specified places as the place of occurrence of the external cause; Z79.899 Other long term (current) drug therapy; Z88.8 Allergy status to other drugs, medicaments and biological substances; Z82.5 Family history of asthma and other chronic lower respiratory diseases; Z81.8 Family history of other mental and behavioral disorders; Z80.8 Family history of malignant neoplasm of other organs or systems; Z82.49 Family history of ischemic heart disease and other diseases of the circulatory system
CPT/HCPCS: 10783

== ENCOUNTER 2018-03-15 15:03 | Inpatient (IN) | payer BC, OTHER ==
[~2018-03-15] VITALS: Ht 188 cm; Wt 195.0 kg
[~2018-03-15 15:03] MED LIST changes: +OXYCODONE HCL 55 MG PO; +OXYCONTIN40 MG PO
[2018-03-15 15:04] VITALS: BP 126/90
[2018-03-15 16:37] LABS: HEMATOCRIT 37.8 % (37.0-47.0); HEMOGLOBIN 12.1 gm/dL (12.0-15.0); MCH 25.1 pg (26.0-34.0); MCHC 32.1 g/dL (28.0-37.0); MCV 78.2 fL (80.0-100.0); RBC 4.83 mil/uL (4.20-5.00); RDW 15.3 % (10.5-14.5)
[2018-03-15 16:38] LABS: URINE BILIRUBIN NEGATIVE (Negative); URINE BLOOD NEGATIVE (Negative); URINE CLARITY CLEAR; URINE COLOR YELLOW; URINE GLUCOSE-RANDOM* NEGATIVE (Negative); URINE KETONES NEGATIVE (Negative); URINE NITRITE-REFLEX NEGATIVE (Negative); URINE PROTEIN (DIPSTICK) NEGATIVE (Negative); URINE SPECIFIC GRAVITY <= 1.005 (1.005-1.035); URINE UROBILINOGEN 0.2 E.U./dl (0.2-1.0)
[2018-03-15 16:40] LABS: URINE LEUKOCYTES-REFLEX TRACE (Negative)
[2018-03-15 16:48] VITALS: BP 126/90
[2018-03-15 17:08] LABS: CALCIUM 9.3 mg/dL (8.5-10.1); CREATININE 0.8 mg/dL (0.6-1.0)
[2018-03-15 17:33] VITALS: BP 122/72
[2018-03-15 18:16] VITALS: BP 125/69
[2018-03-16 16:30] VITALS: BP 114/51
[2018-03-16 21:18] VITALS: BP 122/71
[2018-03-17 05:09] VITALS: BP 133/90
[2018-03-17 07:55] VITALS: BP 132/63
[2018-03-17 19:37] VITALS: BP 131/63
[2018-03-18 07:27] VITALS: BP 124/53
[2018-03-18 10:50] VITALS: BP 119/66
[2018-03-18 20:35] VITALS: BP 131/67
[2018-03-19 04:05] VITALS: BP 134/76
[2018-03-19 07:35] VITALS: BP 143/82
[2018-03-19] MEDS ORDERED: OXYCODONE HCL 55 MG PO (10:10)
[2018-03-19 19:44] VITALS: BP 126/67
[2018-03-20 03:38] VITALS: BP 143/65
[2018-03-20 07:27] VITALS: BP 139/85
[2018-03-20] MEDS ORDERED: OXYCONTIN40 MG PO (08:06)
[2018-03-20 11:45] VITALS: BP 139/85
== END 2018-03-20 13:34 | disposition home or self-care (01) | DRG 552 ==
LOC: ER 15:03 → EROBS 16:40 → 4E 16:40
PROVIDERS: Physician Assistant
DX: M51.16 Intervertebral disc disorders with radiculopathy, lumbar region (principal); Z68.43 Body mass index [BMI] 50.0-59.9, adult; M06.9 Rheumatoid arthritis, unspecified; R32 Unspecified urinary incontinence; D86.9 Sarcoidosis, unspecified; M47.896 Other spondylosis, lumbar region; K59.00 Constipation, unspecified; K21.9 Gastro-esophageal reflux disease without esophagitis; E66.9 Obesity, unspecified; Z87.891 Personal history of nicotine dependence; Z90.710 Acquired absence of both cervix and uterus; Z79.899 Other long term (current) drug therapy; Z88.8 Allergy status to other drugs, medicaments and biological substances; Z82.49 Family history of ischemic heart disease and other diseases of the circulatory system; Z81.8 Family history of other mental and behavioral disorders; Z80.8 Family history of malignant neoplasm of other organs or systems
CPT/HCPCS: 10084

== ENCOUNTER 2018-04-21 23:38 | Inpatient (IN) | payer BC, OTHER ==
[~2018-04-21] VITALS: Ht 188 cm; Wt 207.3 kg
[2018-04-21 23:48] VITALS: BP 142/86
[2018-04-22] VITALS (7 sets, daily range): BP systolic 105–160; BP diastolic 66–87
[2018-04-22 00:13] LABS: ABSOLUTE NEUTROPHILS 6.8 thou/uL (1.4-8.2); BASOPHILS 0.6 % (0.0-2.0); EOSINOPHILS 1.3 % (0.0-3.0); HEMATOCRIT 39.9 % (37.0-47.0); HEMOGLOBIN 12.8 gm/dL (12.0-15.0); LYMPHOCYTES 9.1 % (24.0-44.0); MCHC 31.9 g/dL (28.0-37.0); MCV 78.3 fL (80.0-100.0); MONOCYTES 4.8 % (1.0-8.0); PLATELET COUNT 300 thou/uL (150-400); POLYS 84.2 % (36.0-66.0); RDW 15.7 % (10.5-14.5); WBC 8.1 thou/uL (4.0-11.0)
[2018-04-22 00:15] LABS: ANION GAP 9 mmol/L (7-16); BUN 23 mg/dL (7-18); CALCIUM 9.4 mg/dL (8.5-10.1); CHLORIDE 104 mmol/L (98-107); CO2 26 mmol/L (21-32); CREATININE 1.1 mg/dL (0.6-1.0); GLUCOSE 132 mg/dL (74-106); POTASSIUM 4.6 mmol/L (3.5-5.1); SODIUM 139 mmol/L (136-145)
[2018-04-22 00:24] LABS: ALBUMIN 3.4 g/dL (3.4-5.0); SGOT 21 U/L (15-37); SGPT 34 U/L (30-65); TOTAL BILIRUBIN 0.5 mg/dL (<0.1-1.0); TOTAL PROTEIN 7.6 g/dL (6.4-8.2); TROPONIN-I <0.06 ng/mL (<0.06)
[2018-04-22 01:32] LABS: URINE BILIRUBIN NEGATIVE (Negative); URINE BLOOD NEGATIVE (Negative); URINE CLARITY SL.CLOUDY; URINE COLOR YELLOW; URINE GLUCOSE-RANDOM* NEGATIVE (Negative); URINE KETONES NEGATIVE (Negative); URINE LEUKOCYTES TRACE (Negative); URINE NITRITE NEGATIVE (Negative); URINE PROTEIN (DIPSTICK) NEGATIVE (Negative)
[2018-04-22] MEDS ORDERED: BACTRIM DS TAB1 EACH PO (03:04)
--- NOTE | 2018-04-22 06:24 | NUR ---
Patient admitted to 3W. Assisted patient to bed with stand by assist. Oriented patient and her to the unit, room, call light and bed functions. Fall contract signed. Initial assessment and admission requirements completed.
[2018-04-22] MEDS ORDERED: OXYCONTIN40 MG PO (08:34)
[2018-04-22] MEDS ORDERED: OXYCODONE HCL 55 MG PO (08:41)
--- NOTE | 2018-04-22 10:16 | NUR ---
INITIAL ASSESSMENT: Pt evaluated for d/c planning needs. Reviewed chart and spoke with nurse and pt. Pt is alert and oriented. Pt was hospitalized at [facility] in March 2018 and returned home with . Pt lives in house with spouse and was independent with ADL's prior to admission to the hospital. Pt has walker, cane and CPAP at home. Pt has had [facility] in the past. Pt plans on returning home on d/c from hospital. Will remain available to assist as needed.
--- NOTE | 2018-04-22 10:54 | NUR ---
Dr Holley states this morning that patient was meant to follow up outpatient with physician / clinic for back / hip pain. Patient had called, but never received a call back. Is requesting that nursing calls to help patient set up an appointment. Asked patient which physician or clinic she was following up with for back / hip problems and she cannot remember. Called Dr. Holley's office and spoke with Bob, who states previously, patient did not qualify at the time for additional therapy. Patient does have an appointment on 04/25 with a nurse practitioner in Dr. Holley's office and at this time, they can re-evaluate and send another referral at this time, if needed. Will update patient on plan.
--- NOTE | 2018-04-22 16:22 | NUR ---
Assumed care of patient at 0700. Vitals have been stable. Patient is alert and oriented x4, pleasant. Complaints of chronic pain, treated with both scheduled and PRN medications. Patient reports feeling bad today; unable to rest due to dry, hacking cough. PRN cough syrup w/codeine ordered by Dr. Holley. Patient has been able to doze some since administering. Also has Adelaien ordered PRN tonight to help sleep. Patient SOB with exertion, but maintains oxygen saturations on RA. Up with SBA to bathroom, calls appropriately. Pulmonology consult today. Slowly progressing towards POC. Will continue to monitor.
[2018-04-23 00:10] VITALS: BP 110/61
[2018-04-23 03:25] VITALS: BP 142/93
[2018-04-23 04:15] VITALS: BP 131/82
--- NOTE | 2018-04-23 04:36 | NUR ---
SLEPT PART OF SHIFT. COMPLAINTS OF SHORTNESS OF AIR TONIGHT. DR FLOYD CALLED AND ORDERS FOR BREATHING TREATMENTS RECIEVED. UP TO BATHROOM WITH STANDBY ASSIST. PAIN MEDICATION AND COUGH SYRUP GIVEN PRN WITH NOTED RELIEF. WORKING SLOWLY TOWARDS DISCHARGE GOALS. CONTINUE TO ASSES.
[2018-04-23 07:39] VITALS: BP 112/57
[2018-04-23 15:00] VITALS: BP 115/57
--- NOTE | 2018-04-23 15:15 | HC ---
[facility] [place] [address] CONSULTATION Name: CUHE TRAN Room #: 362-P ADM IN M.R.#: [id number] Admission: 04/22/18 Attend Phys: Clive Holley MD Discharge: Date of : 76 Report #: [id number] THIS REPORT FOR: //name// CC: Clive Holley TYPE OF REPORT: Pulmonary consultation. PRIMARY CARE PHYSICIAN: Clive Holley M.D. REASON FOR REFERRAL: Dyspnea and cough. HISTORY OF PRESENT ILLNESS: The patient is a 37-year-old -Gabonese female with a complex pulmonary history, presents to the Emergency Room with productive cough, dyspnea, chest tightness, chills and myalgias for the past 2 days. A Pulmonary consultation was requested. The patient was diagnosed with cutaneous and pulmonary sarcoidosis. She underwent a skin biopsy in 2018, confirming presence of noncaseating granuloma. She was placed on Plaquenil by her sponge fisherman. Previous chest x-ray showed bilateral nodules. CT chest confirms presence of lung nodules and adenopathy. In 2018, the patient did undergo bronchoscopy, which was nondiagnostic. Because of the extreme obesity, the patient had been hesitant and being placed on steroids to treat her sarcoidosis. Since the last visit in August of 2017, I had recommended being seen at [facility]. She is currently being followed by Sarcoidosis Clinic along with Rheumatology Department at [facility]. She has been on low dose prednisone at 10 mg once a day, methotrexate 2.5 mg weekly. Her recent chest CT angiogram performed on this admission showed resolution of the bilateral pulmonary nodules along with normal mediastinum without evidence of adenopathy. The patient also suffers from chronic hip pain due to osteoarthritis. Because of the morbid obesity, orthopedist in the past has deferred surgery until she lost her weight. The patient's body mass index is 56. She weighs 439 pounds. She stands 6 feet 2 inches tall. She is also seen by Bariatric Surgery. Plans are for possible bariatric surgery once she was felt to be stable from a sarcoidosis standpoint. Surgeon prefers that she be off the methotrexate and prednisone a few weeks prior to surgery. This has been an issue. She was in her usual state of health until about 2 days prior to presentation. She started to develop chills, chest tightness, cough, predominantly nonproductive. She states that her family has been sick with the flu. Chest x-ray and chest CT as mentioned above showing no evidence of obvious infiltrates or nodules. [address] [address] CONSULTATION Name: UCHE TRAN Room #: 362-[facility] IN .R.#: [id number] Admission: 04/22/18 Attend Phys: Clive Holley MD Discharge: Date of : 76 Report #: [id number] PAST MEDICAL HISTORY: As mentioned above. Osteoarthritis, particularly involving the left hip; fibromyalgia; gastroesophageal reflux disease; weakness; FARIDA, on CPAP; cutaneous and pulmonary sarcoidosis and restless legs. She has gastroesophageal reflux disease along with herniated disks involving the L5. PAST SURGICAL HISTORY: Includes hysterectomy, tubal ligation, along with diskectomy in December 2015 at L4-L5. ALLERGIES: To TRAMADOL, which causes swelling around the throat and hand swelling and ZOLOFT causes throat swelling. HOME MEDICATIONS: Include Norvasc, Cozaar, OxyContin 80 mg p.o. b.i.d., Bactrim DS, Toprol-XL, methotrexate 2.5 mg once a week, Ambien 5 mg once a day, Cymbalta, Mobic, rabeprazole 20 mg once a day, lidocaine topical gel patch, prednisone 10 mg once a day, gabapentin, Plaquenil, Zanaflex, folic acid and Ventolin HFA. FAMILY HISTORY: Notable for both parents at the young age. Father at the age of 33, mother at 40 years of age. SOCIAL HISTORY: She is . She has smoked about 10 years, smoking half a pack a day, quit in 2007. She drinks socially. REVIEW OF SYSTEMS: As mentioned above. Notable for chronic myalgias and chronic hip pain. PHYSICAL EXAMINATION: GENERAL: She is awake and alert, in mild distress due to cough and dyspnea. VITAL SIGNS: Temperature is 98 degrees Fahrenheit, pulse is 96, respiratory rate 16, blood pressure 130/83 mmHg and saturation is 99%. HEENT: Normocephalic and atraumatic. NECK: Supple, without any lymphadenopathy or thyromegaly. CHEST: Breath sounds are good with mild coarse breath sounds. No rales. CARDIOVASCULAR: Normal S1 and S2. There are no murmurs or gallop. There is no JVD. There is no carotid bruit. Pulses are 2+/4+ bilaterally. ABDOMEN: Soft and nontender. No organomegaly or masses felt. GENITOURINARY: Deferred. RECTAL: Deferred. EXTREMITIES: There is no edema, cyanosis or clubbing. NEUROLOGICAL: Awake and alert. RADIOLOGICAL DATA: Chest CT angiogram as mentioned above showing no evidence of pulmonary embolus, no obvious infiltrates seen that was previously noted and the mediastinum appears to be normal. No evidence of pulmonary embolus. CT chest angiogram in November of 2013 performed at [facility] shows resolution of the reticular nodular infiltrates that was previously seen in August [facility] [place] [address] CONSULTATION Name: UCHE TRAN Room #: 362-P ADM IN M.R.#: [id number] Admission: 04/22/18 Attend Phys: Clive Holley MD Discharge: Date of : 76 Report #: [id number] of 2017. LABORATORY DATA: Influenza A and B swab is negative. Procalcitonin level is normal. Electrolytes are normal, creatinine is 1.1. Liver enzymes are normal. WBC 8100, hemoglobin is normal, platelets are normal and no evidence of bandemia. IMPRESSION: 1. Progressive cough, dyspnea, chest tightness in this 37-year-old -Gabonese female with multiple medical problems. The patient likely has viral syndrome. Lower respiratory tract infection cannot be ruled out. Exacerbation of sarcoidosis is also likely. 2. Sarcoidosis, cutaneous and pulmonary, previously undergone skin biopsy confirming the diagnosis. The patient is currently on low dose prednisone and methotrexate. With this, a recent chest CT from November of 2017 shows resolution of the pulmonary nodules. She is going to follow the Sarcoidosis Clinic at [facility] along with Rheumatology Department at [facility]. 3. Obstructive sleep apnea, on continuous positive airway pressure. 4. Morbid obesity. She is scheduled to undergo bariatric surgery sometime in the future. Plans are being arranged to manage her sarcoidosis medication if and when she undergoes bariatric surgery. This will be coordinated with Pulmonary Department and Bariatric Surgery Department here. 5. Chronic hip pain, concerns for possible sarcoid involvement versus osteoarthritis. She is on chronic narcotics. RECOMMENDATIONS: We would suggest broad-spectrum antibiotics, to cover for lower respiratory tract infection, with sarcoidosis, we would recommend pulse steroid therapy. Bronchodilators will be added. DVT and GI prophylaxis recommended. Thank you for this consultation. <ELECTRONICALLY SIGNED> By: Rubin Price MD 04/23/18 1515 [id number] [id number] Rubin Price MD /nt
--- NOTE | 2018-04-23 16:50 | NUR ---
Assumed care of Pt at 0700. Pt AOx4 tearful due to personaly events otherwise no acute distress. Pt up ad lili w/ steady gait. wheezy to auscultation. pain well controlled with current med regimen. occasional coughing fits - finding some relief with mucinex/codeine. sinus on telemetry. vitals WNL. pt progressing toward poc goals.
[2018-04-23 21:00] VITALS: BP 135/79
[2018-04-24 03:40] VITALS: BP 144/85
--- NOTE | 2018-04-24 04:06 | NUR ---
Pt. has been awake all night despite ambien. Stated she usually get some sleep during the day for few hours. Medicated for pain with some relief. Tolerating room air well though she gets short of breath with exertion. Ambulates with SBA to bathroom. She is high fall risk due to intermittent balance problems. Bed alarm on. She calls appropriately. Afebrile. Making progress towards care plan goals.
[2018-04-24 07:19] VITALS: BP 143/91
--- NOTE | 2018-04-24 16:01 | NUR ---
ASSUMED CARE AT 0700. AXOX4. CALLS APPROPRIATELY. PERSISTENT PRODUCTIVE COUGH. SOLUMEDROL TX. TOLERATED WELL. NO S/S ACUTE DISTRESS NOTED OR REPORTED AT THIS TIME. WILL CONT TO MONITOR ANY CHANGES.
[2018-04-24 17:13] VITALS: BP 144/75
[2018-04-24 20:45] VITALS: BP 124/73
[2018-04-25 03:15] VITALS: BP 130/80
--- NOTE | 2018-04-25 04:00 | NUR ---
Pain med given with some relief. Pt. slept better last night. Woke up this am c/o shortness of breath and wheezing. RT paged and gave her breathing tx and stated it helped. Tolerating room air well. She does get short of breath with exertion and stated it has gotten better since she's been here. Up with SBA and calls appropriately if she needs assistance to BR. Denies any other concern. Making progress towards care plan goals.
[2018-04-25 08:02] VITALS: BP 145/74
[2018-04-25] MEDS ORDERED: ALBUTEROL2.5 MG/0.5 INH (08:09)
[2018-04-25] MEDS ORDERED: AMITRIPTYLINE H25 M2 PO (08:10)
[2018-04-25] MEDS ORDERED: CEFDINIR300 MG PO (08:11)
[2018-04-25 08:46] VITALS: BP 145/74
[2018-04-25 09:56] VITALS: BP 145/74
--- NOTE | 2018-04-25 09:57 | NUR ---
ON-GOING ASSESSMENT: PATIENT HAS ORDERS TO DISCHARGE HOME WITH HH TODAY. CM MET WITH PATIENT AND SHE HAS HAD [facility] IN THE PAST AND PREFERS TO USE THEM AGAIN. CM NOTIFIED [facility] WHO STATES THEY CAN ACCEPT PATIENT. [facility] WAS NOTIFIED OF DISCHARGE TODAY. PT IS ALSO NEEDING A NEBULIZER. PT HAS NO PREFERENCE OF DME PROVIDER. JANETTE SPOKE WITH DELMIS FERRARI FROM [facility] WHO STATES THEY CAN PROVIDE NEBULIZER AND WILL DELIVER IT TO PATIENTS HOME. CM NOTIFIED PATIENT. PT REPORTS HER RIDE IS COMING AROUND 1400. PT REPORTS NO FURTHER NEEDS FROM CM AT THIS TIME CASE CLOSED.
[2018-04-25 10:37] VITALS: BP 145/74
--- NOTE | 2018-04-25 11:34 | NUR ---
care of pt assumed this am @ 0700, pt noted to be resting quietly and comfortably. pt aox4, maex4, and very polite. pt states she is feeling much better compared to when she arrived in the ER on the eleven. pt seen by dr. wise this am, and she is aware of impending dc today. pt states her will be the one to drive her home and he will not be able to come to the hospital till 1400 today. pt verbalized concern re: script for nebulizer from [facility], but unsure where she will get on, cm stated she would check into a service we have her to obtain for her before dc today. pt visited by family members late morning and noted to have a fruitful, enjoyable and lengthy conversations.
[2018-04-25 12:32] VITALS: BP 145/74
[2018-04-26 07:11] LABS: ADENOVIRUS Negative (Negative); INFLUENZA A Negative (Negative); INFLUENZA B Negative (Negative); METAPNEUMOVIRUS Negative (Negative); PARAINFLUENZA 1 Negative (Negative); PARAINFLUENZA 2 Negative (Negative); PARAINFLUENZA 3 Negative (Negative); RHINOVIRUS Negative (Negative); RSV A Negative (Negative); RSV B Positive (Negative)
== END 2018-04-25 14:45 | disposition home health service (06) | DRG 196 ==
LOC: ER 23:38 → 3W 04-22 02:24 → EROBS 04-22 02:24 → 3W 04-22 02:36 → ENTRNSPT 04-25 14:31 → 3W 04-25 14:45
PROVIDERS: Student in an Organized Health Care Education/Training Program; ADMIT Family Medicine
DX: D86.0 Sarcoidosis of lung (principal); J18.9 Pneumonia, unspecified organism; Z68.43 Body mass index [BMI] 50.0-59.9, adult; J44.1 Chronic obstructive pulmonary disease with (acute) exacerbation; M06.9 Rheumatoid arthritis, unspecified; K21.9 Gastro-esophageal reflux disease without esophagitis; M79.7 Fibromyalgia; G47.33 Obstructive sleep apnea (adult) (pediatric); D86.3 Sarcoidosis of skin; G25.81 Restless legs syndrome; M25.559 Pain in unspecified hip; G89.29 Other chronic pain; M51.86 Other intervertebral disc disorders, lumbar region; G47.00 Insomnia, unspecified; M47.896 Other spondylosis, lumbar region; E66.01 Morbid (severe) obesity due to excess calories; Z87.891 Personal history of nicotine dependence; Z90.710 Acquired absence of both cervix and uterus; Z79.899 Other long term (current) drug therapy; Z88.8 Allergy status to other drugs, medicaments and biological substances; Z83.6 Family history of other diseases of the respiratory system; Z80.8 Family history of malignant neoplasm of other organs or systems; Z81.8 Family history of other mental and behavioral disorders; Z82.49 Family history of ischemic heart disease and other diseases of the circulatory system
CPT/HCPCS: 10879

== ENCOUNTER → 2018-05-23 | Outpatient (CLI) | payer BC, OTHER ==
[~2018-05-23] MED LIST changes: +ALBUTEROL2.5 MG/0.5 INH; +AMITRIPTYLINE H25 M2 PO; +CEFDINIR300 MG PO
== END ==
LOC: RAD 11:43
DX: R06.00 Dyspnea, unspecified (principal); R05 Cough

== ENCOUNTER 2018-06-04 21:07 | Inpatient (IN) | payer BC, OTHER ==
[~2018-06-04] VITALS: Ht 185.4 cm; Wt 195.0 kg
[2018-06-04 21:09] VITALS: BP 153/93
[2018-06-04] MEDS ORDERED: DEMADEX20 MG PO (22:14)
[2018-06-04] MEDS ORDERED: AMBIEN 10 MG TA10 MG PO (22:14)
[2018-06-04] MEDS ORDERED: ZUPLENZ8 MG PO (22:15)
[2018-06-04] MEDS ORDERED: BACTRIM DS TAB1 EACH PO (22:15)
[2018-06-04] MEDS ORDERED: XTAMPZA ER36 MG PO (22:15)
[2018-06-04] MEDS ORDERED: METHOCARBAMOL500 M2 PO (22:16)
[2018-06-05 00:08] LABS: ABSOLUTE NEUTROPHILS 5.8 thou/uL (1.4-8.2); BASOPHILS 0.7 % (0.0-2.0); EOSINOPHILS 0.9 % (0.0-3.0); HEMATOCRIT 35.9 % (37.0-47.0); HEMOGLOBIN 11.4 gm/dL (12.0-15.0); LYMPHOCYTES 19.8 % (24.0-44.0); MCH 25.2 pg (26.0-34.0); MCHC 31.8 g/dL (28.0-37.0); MCV 79.3 fL (80.0-100.0); PLATELET COUNT 234 thou/uL (150-400); POLYS 69.6 % (36.0-66.0); RBC 4.52 mil/uL (4.20-5.00); WBC 8.3 thou/uL (4.0-11.0)
[2018-06-05 00:17] LABS: CALCIUM 9.2 mg/dL (8.5-10.1); CREATININE 1.2 mg/dL (0.6-1.0); POTASSIUM 3.6 mmol/L (3.5-5.1)
[2018-06-05 00:23] LABS: ALBUMIN 3.1 g/dL (3.4-5.0); TOTAL BILIRUBIN 0.6 mg/dL (<0.1-1.0); TOTAL PROTEIN 6.4 g/dL (6.4-8.2)
[2018-06-05 00:31] LABS: URINE BILIRUBIN NEGATIVE (Negative); URINE BLOOD NEGATIVE (Negative); URINE CLARITY CLEAR; URINE COLOR YELLOW; URINE GLUCOSE-RANDOM* NEGATIVE (Negative); URINE KETONES TRACE (Negative); URINE LEUKOCYTES-REFLEX NEGATIVE (Negative); URINE NITRITE-REFLEX NEGATIVE (Negative); URINE PROTEIN (DIPSTICK) NEGATIVE (Negative); URINE SPECIFIC GRAVITY 1.025 (1.005-1.035); URINE UROBILINOGEN 0.2 E.U./dl (0.2-1.0)
[2018-06-05 01:37] VITALS: BP 128/65
[2018-06-05 01:43] VITALS: BP 128/65
[2018-06-05 02:03] VITALS: BP 144/83
--- NOTE | 2018-06-05 05:34 | NUR ---
ASSUMED PT 0150. ADMISSION COMPLETE. IV SITES X2 C/D/I, NO SIGNS OF INFILTRATION. PT REPORTS SEVERE PAIN BILAT LE. SWELLING AND REDNESS IN BOTH LOWER EXTREMETIES. CONSENT FORMS SIGNED. PT CALL LIGHT AND PERSONAL BELONGINGS WITHIN REACH, WILL CONTINUE POC UNTIL EOS.
[2018-06-05 08:00] VITALS: BP 156/83
--- NOTE | 2018-06-05 11:04 | EKG ---
[place] [address] [facility] [place] [address] ELECTROCARDIOGRAM REPORT Name: UCHE TRAN Room #: 421-P [facility] IN M.R.#: [id number] ������������������ Admission: 06/05/18 ������������������ Attend Phys: Clive Holley MD Discharge: ������������������ Date of : 76 Report #: [id number] ����������������������������������������������������������������� [id number] THIS REPORT FOR: //name// [facility] ED Test Date: 2018-06-05 Test Time: 00:02:20 Pat Name: UCHE TRAN Department: Room: 421 Gender: F 2Nd Grade Teacher: [email or web address] : 1980 Requested By: Ben Nixon Order Number: [id number] MD: Vladislav Schmidt Measurements Intervals [place] Rate: 81 P: 29 OK: 183 QRS: 19 QRSD: 110 T: 47 QT: 380 QTc: 441 Interpretive Statements Sinus rhythm Abnormal R-wave progression, early transition Compared to ECG 11/24/2017 10:38:57 No significant changes Electronically Signed On 06-05-2018 11:03:56 WIND TUNNEL ENGINEER by Vladislav Schmidt [email or web address] ��������������������������������������������� <ELECTRONICALLY SIGNED> ���������������������������������������� By: Vladislav Schmidt MD, [facility] ��������������������������������������������� 06/05/18 1103 0002 0002 Vladislav Schmidt MD, [facility] /EPI
[2018-06-05 16:14] VITALS: BP 126/71
[2018-06-05 19:45] VITALS: BP 135/83
--- NOTE | 2018-06-05 20:00 | NUR ---
VSS-AFEBRILE. PLACED ON HOSPITAL CPAP SHE WEARS ONE AT HOME WHEN SLEEPING. PAIN BETTER CONTROLLED WITH IV ATIVAN AND PO OXYCODONE. OOB TO USE BSC WITH ASSIST OF 1, WEAK, BUT STEADY ON FEET. NO DIFFICULTY VOIDING, URINE IS CLOUDY AND CONCENTRATED. TURNS SELF IN BED WITH REMINDERS. NO REPORTED N/V.
--- NOTE | 2018-06-06 03:34 | NUR ---
PT WAS OBSERVED LYING IN BED WATCHING TV AT THE START OF SHIFT.PT ALERT WITH FORGETFULNESS.PT REQUESTED FOR PAIN MED IMMEDIATELY AFTER REPORT,AM NURSE ADMINISTERED IT BEFORE LEAVING THE PATIENT'S ROOM,TWO HOURS LATER,PT REQUESTED FOR TORADOL,ON GETTING TO PT'S ROOM,SHE WAS OBSERVED SLEEPING ON HER BED.PT WAS NOTIFIED THAT IT WAS TOO SOON TO GET THE MEDICATION.PT CALLED AGAIN X3 FOR TORADOL WAS REMINDED THATIT WAS STILL NOT YET TIME SHE GETS IT Q6HRS.PAIN MED WAS LATER ADMINISTERED AT 0300 PER PT'S REQUEST,PT ALSO REQUESTED FOR LORAZEPAM WHICH WAS ADMINISTERED.PT NOTIFIED YARN MERCERIZER OPERATOR HELPER THAT SHE HAS NOT GOTTEN HER PAIN MED,NURSE WENT AND REMINDED HER THAT SHE GOT HER PAIN AND ANXIETY MED SHE REQUESTED.PT STATED THAT SHE COULDN'T REMEMBER GETTING THEM ,THE NURSE REMINDED PT THAT SHE SAID THAT THE MEDICATION WAS BURNING IT WAS BEING ADMINISTERD,PT RECOLECTED SAYING THAT AND APOLOGIZED.UP WITH ASSIST X1 TO BS PT HAD DIFFICULTY WITH BM,PT STATED THAT SHE HAS NOT HAD BM FOR SOME DAYS NOW WILL GET MIRALAX ORDER SOON PHYSICIAN COMES IN AM.CALL LIGHT WITHIN REACH.
[2018-06-06 03:36] VITALS: BP 154/100
[2018-06-06 07:45] VITALS: BP 134/71
--- NOTE | 2018-06-06 14:01 | NUR ---
ASSESSMENT-PT LIVES AT HOME WITH HER AND 3 CHILDREN AGES 19, 16 AND 15. PT USES A CANE OR A WALKER TO GET AROUND. HER IS WORKING ON GETTING GRAB BARS FOR THE BATHROOM. PT HAS HAD [facility] IN THE PAST. PT HAS A NEB. THRU [place]. DTR PRESENT FOR THE INTERVIEW AND BOTH DENY ANY DC NEEDS AT THIS TIME.
[2018-06-06 17:01] VITALS: BP 125/62
[2018-06-06 20:30] VITALS: BP 125/70
[2018-06-07] MEDS ORDERED: AMITRIPTYLINE H25 M3 PO (00:27)
[2018-06-07 04:46] VITALS: BP 131/69
--- NOTE | 2018-06-07 06:28 | NUR ---
difficulty with pain control during night d/t abdominal pain being exacerbated by constipation. no BM x 1 week. given SQ Relistor this morning, new order received after speaking to Dr Holley. SOFTWARE REVERSE ENGINEER Morphine for pain, patient demonstrated correct use. up to BSC with standby assist. no N/V.
--- NOTE | 2018-06-07 08:24 | NUR ---
PT WAS UNABLE TO GET UP TO THE COMMODE AND EVACUATE STOOL BY HERSELF. DIGITAL REMOVAL WAS PERFORMED. A FAIR AMOUNT OF FOUL SMELLING SOFT STOOL WAS REMOVED. PT IS ON COMMODE TRYING TO EVACUATE REST OF STOOL.
--- NOTE | 2018-06-07 09:09 | NUR ---
Assess due to high BMI 56.7=extreme class III obesity. Admit with bilateral LE cellulitis and requiring antibiotics. Appetite is good. Wts hx variable 430-450 lb. Recommend continue heart healthy diet. Pt has been seen by RD in past. Available for any dietary questions. Low nutrition risk
[2018-06-07 09:15] VITALS: BP 129/82
--- NOTE | 2018-06-07 09:40 | NUR ---
PT SUCCESSFULLY EVACUATED REST OF STOOL BY HERSELF AFTER DIGITAL REMOVAL. A LARGE AMOUNT OF STOOL WAS REMOVED. PT ABDOMINAL PAIN/DISCOMFORT WAS RELEIVED AFTER BOWEL MOVEMENT.
--- NOTE | 2018-06-07 14:55 | NUR ---
PT WAS HAVING DIFFICULTY HAVING A BOWEL MOVEMENT. HAD NOT HAD A BOWEL MOVEMENT SINCE WEDNESDAY 05/31. DIGITAL REMOVAL WAS PERFORMED THIS MORNING AND SHE WAS ABLE TO EVACUATE THE REST ON HER OWN AT THE BED SIDE COMMODE IMMEDIATELY FOLLOWING DIGITAL REMOVAL. PATIENT STARTED HAVING URGENCY TO URINATE AROUND 1330. UA HAS BEEN SENT TO THE LAB TO RULE OUT URINARY TRACT INFECTION. PATIENT IS ABLE TO GET TO COMMODE AND BED ON HER OWN. PATIENT IS STILL IN A LOT OF PAIN BUT LIDOCAINE CREAM SEEMED TO HELP WITH LOWER LIMB SKIN PAIN. PATIENT EXPRESSES CONCERN ABOUT CURRENT PLAN OF TREATMENT. PATIENT STATES SHE [facility] BE [facility] TO TALK ABOUT FLAIR UP.
--- NOTE | 2018-06-07 15:05 | NUR ---
Received request to speak with pt re: homemaker services. Pt encouraged to speak with DFS re: homemaker services through [employer]. Pt has Medicare and [place] Medicaid. Also discussed pt arranging transportation through her [place] Medicaid for physician appointments. Gave pt information re: grocery stores delivering and also [employer] does delivery. No other needs identified.
--- NOTE | 2018-06-07 15:12 | NUR ---
I have reviewed and concur with student documentation.
[2018-06-07 16:13] LABS: URINE BILIRUBIN NEGATIVE (Negative); URINE BLOOD NEGATIVE (Negative); URINE CLARITY CLEAR; URINE COLOR YELLOW; URINE GLUCOSE-RANDOM* NEGATIVE (Negative); URINE KETONES NEGATIVE (Negative); URINE LEUKOCYTES NEGATIVE (Negative); URINE NITRITE NEGATIVE (Negative); URINE PROTEIN (DIPSTICK) NEGATIVE (Negative); URINE SPECIFIC GRAVITY <= 1.005 (1.005-1.035); URINE UROBILINOGEN 0.2 E.U./dl (0.2-1.0)
[2018-06-07 16:25] VITALS: BP 127/80
--- NOTE | 2018-06-07 17:11 | NUR ---
PT ASSESSED AT START OF SHIFT. DR. FLOYD IN EARLY TO SEE PT. PT CONTINUES TO HAVE JOON LE PAIN. MORPHINE VP CUSTOMER SERVICE INFUSING. BASAL RATE DC'D PER ORDERS. PT UP TO THE BSC INDEPENDANTLY. HAD LARGE CONSTIPATED BM AFTER RELISTOR AND DISIMPACTION. EATING AND DRINKING OK. NEUROLOGIST CONSULTED AND INDICATED PT LEG PAIN FROM HER SARCOIDOSIS. IV ANTIBIOTICS INFUSING. OXYCODONE GIVEN FOR BREAKTHROUGH PAIN W/ GOOD RELIEF.
[2018-06-07 20:00] VITALS: BP 124/67; BP 16/58; BP 176/58
[2018-06-08 04:30] VITALS: BP 141/89
--- NOTE | 2018-06-08 06:04 | NUR ---
INCREASED URINATION SINCE LARGE BMS, RELIEF FROM SEVERE CONSTIPATION 06/07. UP TO BSC WITH STAND BY ASSIST. GIVEN PO PRN PAIN MED X 1 D/T COMPLAINING PRESCHOOL TEACHER'S ASSISTANT NOT EFFECTIVE. CHECKED PRESCHOOL TEACHER'S ASSISTANT PUMP, BUTTON IS WORKING, NEEDS TO BE PRESSED FIRMLY TO OPERATE. DENIES NAUSEA. CONTINUOUS PULSE OX DURING NIGHT, SATS WNL.
--- NOTE | 2018-06-08 12:40 | NUR ---
SHUT OFF WORKER CALLED D/T PT C/O MIDSTERNAL CHEST PAIN WITHOUT RADIATION. DESCRIBES PAIN "UNCOMFORTABLE", ORDERED CXR, TROPONIN, AND EKG. EKG SHOWS SR WITHOUT ECTOPY. DR GOOD NOTIFIED. PT WILL REMAIN ON ORIGINAL UNIT.
--- NOTE | 2018-06-08 12:46 | NUR ---
PT C/O CHEST PAIN/ TIGHTNESS AT 7/10. VS 104/45, O2 SAT 99%, HR 96. NO N/V, A&OX4. RAT TEAM CALLED. EKG, TROPNIN, CHEST X RAY ORDERED. WILL CONT TO MONITOR.
--- NOTE | 2018-06-08 13:09 | EKG ---
[address] [address] ELECTROCARDIOGRAM REPORT Name: UCHE TRAN Room #: 421-P ADM IN M.R.#: [id number] ������������������ Admission: 06/05/18 ������������������ Attend Phys: Clive Holley MD Discharge: ������������������ Date of : 76 Report #: [id number] ����������������������������������������������������������������� [id number] THIS REPORT FOR: //name// [facility] Test Date: 2018-06-08 Test Time: 12:30:23 Pat Name: UCHE TRAN Department: Room: 421 Gender: F Rn Primary Care: Nirav BURROUGHS : 1980 Requested By: Igor Marx Order Number: [id number] MD: Paolo Brock Measurements Intervals [place] Rate: 91 P: 39 ND: 185 QRS: 29 QRSD: 91 T: 42 QT: 375 QTc: 462 Interpretive Statements Sinus rhythm early transition Nonspecific ST-T wave changes Compared to ECG 06/05/2018 00:02:20 No significant changes Electronically Signed On 06-08-2018 13:09:46 UPPER CUTTER MACHINE by Paolo Brock [email or web address] ��������������������������������������������� <ELECTRONICALLY SIGNED> ���������������������������������������� By: Paolo Brock MD ��������������������������������������������� 06/08/18 1309 1230 1230 Paolo Brock MD /EPI
[2018-06-08 17:10] VITALS: BP 156/42
[2018-06-08 19:32] VITALS: BP 133/76
[2018-06-09 03:47] VITALS: BP 139/89
[2018-06-09 05:45] LABS: HEMATOCRIT 32.2 % (37.0-47.0); HEMOGLOBIN 10.5 gm/dL (12.0-15.0); MCH 25.8 pg (26.0-34.0); MCHC 32.7 g/dL (28.0-37.0); MCV 78.9 fL (80.0-100.0); RBC 4.09 mil/uL (4.20-5.00); RDW 16.1 % (10.5-14.5); WBC 9.3 thou/uL (4.0-11.0)
--- NOTE | 2018-06-09 05:54 | NUR ---
ASSUMED CARE AT 1900, ASSESSMENT COMPLETED. DEPUTY PROGRAM MANAGER CLEARED WITH OFF-GOING RN, 47 MG CLEARED FROM PUMP, WHICH WAS RUNNING AT LOW-DOSE MORPHINE OF 1MG EVERY 6 MIN WITH A 10 MG/HR MAX AND NO BASAL. NEW BAG OF MORPHINE HUNG AT 2039, WITNESS WITH SECOND RN. PT C/O SEVERE PAIN IN BILAT ANKLES AND SHINS; BOTH ARE VERY WARM WITH SLIGHT PINK HUE, MODERATE NONPITTING EDEMA. LEGS ELEVATED ON PILLOWS, SMALL ICE PACKS APPLIED TO LEGS TO ALLEVIATE SOME OF THE PAIN. DENIES NAUSEA. INITIALLY DENIED SOA, LATER ASKED FOR HER NC WITH 2L O2 SHE FELT SLIGHTLY BREATHLESS; O2 SATS 98% OR HIGHER. CONTINUOUS PULSE OX ON. PT REQUESTED MIRALAX TO AVOID CONSTIPATION. REVIEWING DEPUTY PROGRAM MANAGER ORDERS, NOTED THAT ORDER ACTUALLY CALLED FOR HIGH DOSE MORPHINE OF 2 MG EVERY 6 MIN WITH A 20 MG/HR MAX AND NO BASAL RATE. CHANGED PUMP TO APPROPRIATE DOSE WITH A SECOND RN WITNESS. O2 SATS AND BREATHING RATE NORMAL. PT HAS BEEN UP MULTIPLE TIMES TO BSC, URINATING LARGE AMOUNTS OF CLEAR YELLOW URINE. NO BM OVERNIGHT. NO OTHER CONCERNS, WILL CONTINUE TO MONITOR.
[2018-06-09 06:04] LABS: ALBUMIN 2.7 g/dL (3.4-5.0); CALCIUM 8.2 mg/dL (8.5-10.1); CREATININE 0.9 mg/dL (0.6-1.0); POTASSIUM 3.5 mmol/L (3.5-5.1); TOTAL BILIRUBIN 0.3 mg/dL (<0.1-1.0); TOTAL PROTEIN 5.9 g/dL (6.4-8.2)
[2018-06-09 07:15] VITALS: BP 139/90
--- NOTE | 2018-06-09 09:21 | NUR ---
ASSUMED PATIENT AND CARES AT 0715, PATIENT IN BED WOKE A&OX4, NOTED WITH INCREASED PAIN 10/10 TO BLE, 3-4+ EDEMA WITH NO OPEN AREAS, LEFT FOREARM SALINE LOCK NOT ACCESSIBLE AT THIS TIME, PICC LINE PENDING PLACEMENT, RISK INVESTIGATOR AND IV MEDICATIONS PENDING UNTIL PLACEMENT, PERSONAL BELONGINGS AND CALL LIGHT IN REACH, WILL CONTINUE TO MONITOR
--- NOTE | 2018-06-09 11:23 | NUR ---
VASCULAR ACCESS TEAM CONSULTED FOR PICC LINE. DISCUSSED BENEFITS AND RISKS WITH PT, VERBALIZED UNDERSTANDING. PREPPED AND DRAPED ATTEMPTED UNSUCCESSFULLY BOTH ARM CEPHALIC, UNSBLE TO SEE BRACHIAL OR BASILIC. ORDER FOR IR TO PLACE TODAY
[2018-06-09 16:20] VITALS: BP 139/87
[2018-06-09 19:27] VITALS: BP 139/97
[2018-06-10 03:34] VITALS: BP 150/92
--- NOTE | 2018-06-10 05:24 | NUR ---
PT MAIN PROBLEM SEEMS TO BE PAIN. WE ARE WORKING WITH [facility] PAIN MEDS.SEEMS TO BE PROVIDING RELIEF.VSS.PT COMPLAINS OF PAIN IN LEGS AND HIPS. LLE ELEVATED ON 2 PILLOWS. BOTH LEGS ARE VERY TENDER TO THE TOUCH. AFEBRILE. ON ROOM AIR-SATTING OK.WILL CONTINUE WITH POC TILL EOS.ISOLATION FOR MRSA.
[2018-06-10 05:54] LABS: HEMOGLOBIN 10.8 gm/dL (12.0-15.0); MCH 25.3 pg (26.0-34.0); MCHC 31.7 g/dL (28.0-37.0); MCV 79.8 fL (80.0-100.0); RBC 4.26 mil/uL (4.20-5.00); RDW 16.1 % (10.5-14.5); WBC 9.5 thou/uL (4.0-11.0)
[2018-06-10 06:05] LABS: CREATININE 0.9 mg/dL (0.6-1.0); POTASSIUM 3.7 mmol/L (3.5-5.1)
--- NOTE | 2018-06-10 09:27 | NUR ---
ASSUMED CARE OF PT AT 0700. ASSESSMENT COMPLETED. A&O,X4. C/O LEFT LEG PAIN, PAIN MEDS GIVEN ORDERED. +3 PITTING EDEMA BILATERAL LOWER EXTREMITIES. TOPICAL LIDOCAINE APPLIED ORDERED. ROOM AIR. LEFT UPPER ARM DOUBLE LUMEN PICC IN PLACE, IV ABX. PT REFUSED AM TORSEMIDE. WILL CONTINUE TO MONITOR.
[2018-06-10 11:04] LABS: TSH 5.186 uIU/mL (0.358-3.740)
[2018-06-10] MEDS ORDERED: OXYCONTIN40 MG PO (14:45)
[2018-06-10] MEDS ORDERED: HYDROCODONE-AP1 EAC6 PO (14:45)
[2018-06-10] MEDS ORDERED: ATIVAN0.5 MG PO (14:47)
[2018-06-10 15:19] VITALS: BP 141/79
--- NOTE | 2018-06-10 17:00 | NUR ---
NEW DISCHARGE ORDERS. DISCHARGE INFORMATION DISCUSSED AT BEDSIDE WITH PT. NEW SCRIPTS AND CARENOTES GIVEN. PICC LINE REMOVED, NO BLEEDING NOTED. AT BEDSIDE TO TAKE PT HOME. PT LEFT VIA WHEELCHAIR IN STABLE CONDITION.
--- NOTE | 2018-06-13 10:07 | HC ---
[facility] [place] [address] CONSULTATION Name: UCHE TRAN Room #: 421-P [facility] IN M.R.#: [id number] Admission: 06/05/18 ������������������ Attend Phys: Clive Holley MD Discharge: 06/10/18 ������������������ Date of : 78 Report #: [id number] THIS REPORT FOR: //name// CC: Clive Holley DATE OF SERVICE: 06/09/2018 ATTENDING PHYSICIAN: Dr. Holley. REASON FOR CONSULTATION: Possible cellulitis of lower extremities. HISTORY OF PRESENT ILLNESS: The patient is a 37-year-old -[place] woman with multiple medical problems, admitted with increasing pain, particularly left lower extremity as well as swelling of lower extremities, interfering with ambulation. The patient is known to have sarcoidosis, on treatment with prednisone and methotrexate. She is also known to have chronic pain syndrome secondary to possible neuropathy of L5. The patient relates she is unable to ambulate, having pain and some swelling of lower extremities. PAST MEDICAL HISTORY: Rheumatoid arthritis. Sarcoidosis. Herniated disk L5, previous laminectomy, L4-L5 in 2016. Chronic hip pain. Gastroesophageal reflux. DRUG ALLERGIES: SERTRALINE, TRAMADOL. MEDICATIONS: The patient is currently on treatment with oxycodone controlled 40 mg p.o. b.i.d., hydrocodone bitartrate one tablet q. 6 h. p.r.n., amitriptyline 25 mg at bedtime, morphine sulfate CHEESE TESTER when IV available, magnesium hydroxide p.r.n., folic acid 1 mg p.o. daily, lidocaine patch to affected area daily, prednisone 30 mg p.o. daily, torsemide 20 mg p.o. daily, duloxetine 30 mg daily, losartan 50 mg p.o. daily, amlodipine 2.5 mg daily, metoprolol 50 mg daily, polyethylene glycol 17 grams p.o. daily, gabapentin 300 mg b.i.d., albuterol inhalation treatments every 4 hours if needed, lorazepam 0.5 mg IV q. 6 h. p.r.n., pantoprazole 40 mg p.o. daily, oxycodone immediate release 20 mg every 6 hours p.r.n., tizanidine 4 mg every 8 hours p.r.n., cefazolin 1 gram IV every 8 hours, acetaminophen 650 p.o. q.i.d. p.r.n., ondansetron 4 mg q. 4 h. p.r.n., vancomycin 1250 mg IV every 8 hours. SOCIAL HISTORY: See H and P. FAMILY HISTORY: See H and P. REVIEW OF SYSTEMS: As above and see H and P. PHYSICAL EXAMINATION: GENERAL: Morbidly obese -[place] woman, [place] [address] CONSULTATION Name: UCHE TRAN [facility]remiah Room #: 421-P [facility] IN M.R.#: [id number] Admission: 06/05/18 ������������������ Attend Phys: Clive Holley MD Discharge: 06/10/18 ������������������ Date of : 78 Report #: [id number] VITAL SIGNS: Temperature 97.4, pulse 68, respirations 18, BP 139/90, height 6 feet 1 inch, weight 430 pounds. HEENMT: Within range. NECK: Supple. BREASTS: Deferred. LUNGS: Clear. HEART: S1, S2. No gallop or murmur. ABDOMEN: Soft, no masses or megaly. EXTREMITIES: Reveal swelling of the ankles. Multiple skin lesions hyperpigmented, roundish in nature, particularly in the left leg and much less so on the right leg. She tells me these lesions are from sarcoidosis. None of the lesions appear to be active at the present time and she most definitely had no obvious cellulitis of left lower extremity. NEUROLOGIC: Grossly within normal limits. LABORATORY DATA: Sodium 141, potassium 3.5, BUN 17, creatinine 0.9, glucose 128, calcium 8.2, albumin 2.7 g/dL. CPK normal. C-reactive protein on 06/07/2018 is 28.7 mg/L. WBC normal on admission and repeated today revealed to be 9300, hemoglobin 10.5 g/dL, MCV and MCH low compatible with iron deficiency anemia, platelets 222,000. ESR on 06/08/2018 is 27 mm per hour. We will repeat those. I suspect if they remain at this low level, we are dealing with no infection. MICROBIOLOGY DATA: Blood cultures were obtained, they remain negative so far. RADIOLOGY EVALUATION: MRI of the lumbar spine on 06/06/2018 revealed stable appearance of lumbar spine compared with previous studies on 03/16/2018, at L4-L5 degenerative disk disease with left paracentral disk bulge and posterior spinal cord hyperintensity. This causes left lateral recess narrowing and effacement of the ventral surface of the left L5 nerve root. Chest x-ray revealed no pulmonary infiltrates. ASSESSMENT: 1. Pain, left lower extremity and chronic swelling of undetermined etiology, suspected neuropathic pain. Minimal elevation of ESR and CRP is not compatible with cellulitis. 2. Sarcoidosis, on prednisone and methotrexate. 3. Immunosuppressed host. 4. Morbid obesity. 5. Chronic pain syndrome. SUGGESTIONS: Recommend discontinue cefazolin. Continue vancomycin. Repeat ESR and CRP. If those remain at current level, I strongly doubt infection and recommend treatment for neuropathic pain. [facility] [address] [place] [address] CONSULTATION Name: UCHE TRAN Room #: 421-P [facility] IN M.R.#: [id number] Admission: 06/05/18 ������������������ Attend Phys: Clive Holley MD Discharge: 06/10/18 ������������������ Date of : 78 Report #: [id number] Holley, thank you for requesting my suggestions. ��������������������������������������������� <ELECTRONICALLY SIGNED> ���������������������������������������� By: Cleve Denise MD ��������������������������������������������� 06/13/18 [id number] [id number] Cleve Denise MD /nt
== END 2018-06-10 17:20 | disposition home or self-care (01) | DRG 603 ==
LOC: ER 21:07 → EROBS 06-05 00:41 → 4E 06-05 00:41 → ER 06-05 01:43 → 4E 06-05 01:43 → ENTRNSPT 06-10 16:42 → 4E 06-10 17:20
PROVIDERS: Emergency Medicine; Internal Medicine; Psychiatry & Neurology Neurology; ADMIT Family Medicine
PROC: B5181ZA Fluoroscopy of Superior Vena Cava using Low Osmolar Contrast, Guidance (ICD-10-PCS; principal; 2018-06-09)
PROC: B548ZZA Ultrasonography of Superior Vena Cava, Guidance (ICD-10-PCS; principal; 2018-06-09)
PROC: 02HV33Z Insertion of Infusion Device into Superior Vena Cava, Percutaneous Approach (ICD-10-PCS; principal; 2018-06-09)
DX: L03.116 Cellulitis of left lower limb (principal); Z68.43 Body mass index [BMI] 50.0-59.9, adult; M48.061 Spinal stenosis, lumbar region without neurogenic claudication; D86.9 Sarcoidosis, unspecified; M06.9 Rheumatoid arthritis, unspecified; K21.9 Gastro-esophageal reflux disease without esophagitis; M25.559 Pain in unspecified hip; L03.115 Cellulitis of right lower limb; M19.90 Unspecified osteoarthritis, unspecified site; E66.01 Morbid (severe) obesity due to excess calories; G89.4 Chronic pain syndrome; M47.896 Other spondylosis, lumbar region; R20.3 Hyperesthesia; K59.00 Constipation, unspecified; Z90.710 Acquired absence of both cervix and uterus; Z88.8 Allergy status to other drugs, medicaments and biological substances; Z82.49 Family history of ischemic heart disease and other diseases of the circulatory system; Z81.8 Family history of other mental and behavioral disorders; Z84.89 Family history of other specified conditions; Z87.891 Personal history of nicotine dependence; Z79.899 Other long term (current) drug therapy
CPT/HCPCS: 10084

== ENCOUNTER 2018-07-04 12:47 | Inpatient (IN) | payer BC, OTHER ==
[~2018-07-04] VITALS: Ht 188 cm; Wt 223.5 kg
[~2018-07-04 12:47] MED LIST changes: +AMBIEN 10 MG TA10 MG PO; +AMITRIPTYLINE H25 M3 PO; +ATIVAN0.5 MG PO; +DEMADEX20 MG PO; +METHOCARBAMOL500 M2 PO; +ZUPLENZ8 MG PO
[2018-07-04 12:48] VITALS: BP 137/90
[2018-07-04] MEDS ORDERED: OXYCONTIN40 MG PO (18:11)
[2018-07-04] MEDS ORDERED: OXYCONTIN10 M1 PO (18:12)
[2018-07-04 18:55] VITALS: BP 113/54
[2018-07-04 19:16] VITALS: BP 124/64
[2018-07-05 00:31] VITALS: BP 139/80
[2018-07-05 04:30] VITALS: BP 140/93
--- NOTE | 2018-07-05 04:50 | NUR ---
PATIENT ARRIVED ON UNIT VIA CART FROM ED ACCOMPAINIED BY SPOUSE AND ED PERSONEL. PATIENT ALERT AND ORIENTED X4. C/O PAIN IN LOWER BACK. DR WAS CALLED TO GET SOMETHING FOR PAIN WELL FOR MEDS. MED WAS GIVEN BUT DID NOT TOUCH PAIN. DR WAS CALLED AGAIN FOR SOMETHING ELSE FOR PAIN. IVP PAIN MED OBTAINED AND GIVEN. MED WAS PARTIAL EFFECTIVE. GETS UP TO BSC WITH ASSIST OF ONE. IVP PAIN MED GIVEN X2 THUS FAR. PATIENT'S URINE IS CLOUDY, FOUL SMELLING AND DARK IN COLOR. PATIENT STATES SHE HAS URGENCY, FREQUENCY, AND BURNING. HAS IV IN RFA, 22G. SLEPT OFF AND ON DURING NIGHT.
[2018-07-05 08:05] VITALS: BP 146/86
[2018-07-05 11:50] VITALS: BP 133/71
--- NOTE | 2018-07-05 13:34 | NUR ---
INITIAL ASSESSMENT: Pt evaluated for d/c planning needs. Reviewed chart and spoke with nurse and pt. Pt is alert and oriented. Pt lives at home with and 3 children. Pt has walker, cane and nebulizer ([employer]) at home. Pt has had [facility] in the past. Pt plans on returning home on d/c from hospital. WIll remain available to assist as needed.
--- NOTE | 2018-07-05 14:24 | NUR ---
Patient complained of low back pain and rate pain for 10 out of 10 at 7 am. Pain medication given. Reassessed pain and Patient stated the pain reduce to 7 out of 10. Assisted patient to shower and liner changed this morning. Patient is able to walk with assistant finance manager. Bediside commode used. No issue with urinary., urine color yellow and clean. Had bowel movement this morning. Complained of low back pain again after shower, pain medication given. Reassessed pain for 7 out of 10. Scheduled pain medication and PRN muscle relaxant given. Patient is resting after lunch.
--- NOTE | 2018-07-05 14:29 | NUR ---
I have reviewed and concur with student documentation.
[2018-07-05 17:36] LABS: URINE BILIRUBIN NEGATIVE (Negative); URINE BLOOD NEGATIVE (Negative); URINE COLOR YELLOW; URINE GLUCOSE-RANDOM* NEGATIVE (Negative); URINE KETONES NEGATIVE (Negative); URINE LEUKOCYTES 1+ (Negative); URINE NITRITE POSITIVE (Negative); URINE PROTEIN (DIPSTICK) NEGATIVE (Negative); URINE UROBILINOGEN 0.2 E.U./dl (0.2-1.0)
[2018-07-05 17:38] LABS: URINE CLARITY SL HAZY
[2018-07-05 17:44] VITALS: BP 117/75
[2018-07-05 17:52] LABS: BACTERIA >30 Many /HPF (None Seen); CASTS None Seen /LPF (None Seen); CRYSTALS None Seen /LPF (None Seen); SQUAMOUS 4-10 Moderate /LPF (0-3); URINE RBC None Seen /HPF (0-2)
--- NOTE | 2018-07-05 18:11 | NUR ---
ASSUMED CARE OF PT AT 0700. A&O,X4. ROOM AIR. C/O CHRONIC BACK PAIN, PAIN MEDS GIVEN ORDERED. TOPICAL LIDOCAINE APPLIED ORDERED. UP WITH X1 ASSIST. EDEMA BILATERAL LEGS. PT REPORTS SYMPTOMS OF UTI, PHYSICIAN NOTIFIED. UA ORDERED, UA RESULTS INDICATIVE OF UTI. PHYSICIAN NOTIFIED, NEW IV ABX ORDER. WILL GIVE ORDERED. STUDENT NURSE WITH PATIENT TODAY. PT IN STABLE CONDITION.
[2018-07-05 19:14] VITALS: BP 142/73
[2018-07-06 03:46] VITALS: BP 114/61
--- NOTE | 2018-07-06 04:43 | NUR ---
PATIENTS CARES WERE ASSUMED AT SHIFT CHANGE. PATIENT WAS ASSESSED AND MEDS WERE PASSED. COMDORT MESSURES FOR HER PAIN WAS GIVEN PER PATIENTS REQUEST AND DOCTORS ORDERS. HOURLY ROUNDING WAS DONE AND PATIENT DID APPER TO BE SLEEPING MOST OF THIS SHIFT. THE BED IS IN A LOW AND LOCKED POSTION. THE BED ALARM IS ON.
[2018-07-06 07:30] VITALS: BP 127/79
--- NOTE | 2018-07-06 11:35 | NUR ---
Assumed pt care at 7am.Pt in bed moaning in pain.Assessment completed.vss. Pt rated lower back pain as 10/10.Morphine ivp given with partial relief. Dr Holley here,order noted.Pt has good appetite today.Up to bsc with sba. Voided without difficulty.Additional pain med given around 10am.Pt in bed sound asleep at present.Will continue to monitor.
--- NOTE | 2018-07-06 16:45 | NUR ---
Carpenter Mate visited with the pt at bedside to eval for dc planning and rehab options. Orders for PT to reeval and OT eval as well as 5N eval requested per the attending. The pt has two steps to enter her house then everything is on one level. She stuggles with endurance and can not tolerate standing activities due to pain and weakness. She had a fall 3 weeks ago. She has a rwalker but may benefit from more intensive therapy and a extra wide w/c. She is currently 494 lbs. Her spouse is on FMLA but will be going back to work soon and she will need to be completely indep to be home alone. She is hoping to have surgery in August for gastric sleeve which will help her with the weight loss needed to have bilateral hip replacement surgeries. She was evaluated by therapy yesterday and did better than normal as she had iv pain meds right before her treatment. Emotional support provided. Spouse updated as well. Will look at possible acute rehab or snf stay to help increase her endurance, strength and saftey so she can be home alone and stronger as her gastric surgery approaches. Will follow.
[2018-07-06 18:58] VITALS: BP 113/72
--- NOTE | 2018-07-07 03:52 | NUR ---
ASSESSMENT COMPLETED AT START OF SHIFT.PT C/O BACK PAIN,MANAGED WITH IV AND PO MED.PT UP WITH SBA TO BSC,PT NOT COMPLIANT WITH FALL PRECAUTIONS WAS ENCOURAGED TO USE CALL LIGHT FOR ASSISTANCE.IV WAS INFILTRATED ANOTHER IV TO LFA.PT CONT ON IV ABX.PT REFUSED HER CPAP THIS HS.PT RESTING ON HER BED AT THIS TIME.CALL LIGHT WITHIN REACH.
[2018-07-07 04:28] VITALS: BP 140/81
[2018-07-07 07:00] VITALS: BP 144/83
--- NOTE | 2018-07-07 09:22 | HC ---
[facility] [place] [address] CONSULTATION Name: UCHE TRAN Room #: 417-I ADM IN M.R.#: [id number] Admission: 07/04/18 ������������������ Attend Phys: Clive Holley MD Discharge: ������������������ Date of : 78 Report #: [id number] THIS REPORT FOR: //name// CC: Clive Holley DATE OF SERVICE: 07/06/2018 CHIEF COMPLAINT: Chronic back pain and chronic bilateral hip pain, combined with a chronic sarcoidosis and chronic morbid obesity. HISTORY OF PRESENT ILLNESS: This 37-year-old female has problems with chronic morbid obesity and is scheduled for gastric sleeve procedure in the next couple of months. She also has a long history of pain involving the back and both hips. She has a history of sarcoidosis and chronic steroid use. She underwent 2 lumbar laminectomy and diskectomy procedures by Dr. Hughes 2 or 3 years ago with some symptomatic improvement. She recalls that her symptoms that included both back pain and radiating pain toward the hip, buttock and thigh bilaterally. She has also had progressive bilateral hip problems and has been seen by multiple surgeons and is currently under evaluation and treatment by hip surgeon at [facility], I believe. I note that she has had previous x-rays and MRI studies, which have demonstrated rather severe degenerative osteoarthritis of both hips. At that time, there was no evidence of avascular necrosis despite her history of sarcoidosis and chronic steroid use. Today, she remains quite heavy and deconditioned and therefore difficult to evaluate. Her subjective symptoms are rather diffuse and include both moderate mid and lower back pain with stiffness and radiating pain towards the hip and buttock bilaterally. She also notes a sense of crepitus and pain with weightbearing or movement of both hips, slightly more on the right than left. She notes some pain, which radiates down the leg, mostly in the buttock and thigh region to a lesser extent in the lower leg bilaterally. Her discomfort is greater on the right, but she has some sense of numbness and tingling, greater on the left, all the symptoms are aggravated by activity and have not been improved much by rest nor medications. Objectively, she is quite heavy and difficult to evaluate. There is limited range of motion of the low back consistent with chronic degenerative change. The pelvis is too large to evaluate effectively. She seems to have a moderate decreased range of motion of both hips and notes a subjective sense of crepitus in both hips, worse on the right than the left. There are clinical findings, which would suggest at least moderately severe degenerative osteoarthritis with crepitus and limited range of motion both hips. She seems to have good movement of both knees. She seems to have satisfactory sensation and satisfactory strength in dorsiflexion and plantar flexion of both feet. In summary, this patient has severe chronic problems, which include chronic morbid obesity, sarcoidosis, chronic steroid use, [place] [address] [facility] AD[facility] IN M.R.#: [id number] Admission: 07/04/18 ������������������ Attend Phys: Clive Holley MD Discharge: ������������������ Date of : 78 Report #: [id number] spondylosis with degenerative disk disease with multiple previous surgeries and chronic postoperative low back pain with ongoing radiculopathy, probably consistent with ongoing nerve root irritability. She also has history of moderately severe and progressive degenerative osteoarthritis of both hips and is probably at risk for avascular necrosis given her obesity and history of chronic steroid use. At this time, I would suggest a repeat lumbar MRI with and without contrast to assess for evidence of recurrent disk herniation or stenosis and new plain x-rays of the pelvis to include both hips would also be appropriate to assess for any progression in the degenerative process. I would not make any other changes in her current chronic conservative treatment regimen. I will comment further once the images are available for review. ��������������������������������������������� <ELECTRONICALLY SIGNED> ���������������������������������������� By: Jourdan Lan MD ��������������������������������������������� 07/07/18 0922 [id number] Jourdan Lan MD /nt
--- NOTE | 2018-07-07 10:31 | NUR ---
FAXED REFERRAL TO [facility] SPOKE WITH GRACIELA IN ADM. SHE RECEIVED REFERRAL FOR BARIATRIC WC. DCP TO FOLLOW.
--- NOTE | 2018-07-07 11:52 | NUR ---
Assess for high BMI 63.2=extreme class III obesity. Discussion with pt-has planned gastric sleeve surgical intervention scheduled for this May. Has been meeting with bariatric surgeon. Has low carb diet ordered, no questions. Low nutrition risk
--- NOTE | 2018-07-07 14:05 | NUR ---
Assumed pt care at 7am.Assessment completed.vss.Pt in and out room today for ambulation with therapist.Fair endurance noted.Pt c/o lower back pain rated 10/10. Both po and iv pain med given with partial relief.Pt wanted iv pain med given almost at the same time but rn told pt it can be given one hour at least after.Dr Holley and Sara flaking roll operator here,order noted.Will continue to monitor.
[2018-07-07 15:00] VITALS: BP 141/707
--- NOTE | 2018-07-07 16:03 | NUR ---
[place]ED REFERR[place] [facility] [place] WITH NÉSTOR IN ADM. AND SHE RECEIVED REFERRAL AND WILL REVIEW. DCP TO FOLLOW.
[2018-07-07 19:32] VITALS: BP 129/71
--- NOTE | 2018-07-08 02:18 | NUR ---
PT C/O PAIN ON HER BACK,MANAGED WITH PO AND IV MED.UP TO BSC WITH SBA.FAMILY WAS HERE TO VISIT.PT CALM AND COOPERATIVE WITH CARE.PT RESTING ON HER BED AT THIS TIME.CALL LIGHT WITHIN REACH.
[2018-07-08 05:19] VITALS: BP 119/69
[2018-07-08 07:15] VITALS: BP 131/87
--- NOTE | 2018-07-08 08:48 | NUR ---
ASSUMED CARE OF PT AT 0700. ASSESSMENT COMPLETED. A&O,X4. C/O LOWER BACK AND LOWER EXTREMITY PAIN, PAIN MEDS GIVEN ORDERED. ROOM AIR. WILL CONTINUE TO MONITOR.
--- NOTE | 2018-07-08 16:36 | NUR ---
STILL WAITING ON AUTHORIZATION FOR ACUTE REHAB AT THIS TIME. FOLLOWING. [facility] MAY BE ABLE TO ACCEPT IF 5N IS DENIED.
--- NOTE | 2018-07-08 18:09 | NUR ---
END OF SHIFT. PT REQUESTED BENADRYL, NEW ORDER FROM DR. FLOYD FOR ITCHING. PAIN MEDS GIVEN ORDERED TO CONTROL PAIN. PLAN TO GO TO REHAB ON WEDNESDAY. NO OTHER CHANGE IN STATUS.
[2018-07-08 23:07] VITALS: BP 141/84
--- NOTE | 2018-07-09 00:53 | NUR ---
PT CONTINUES TO C/O BACK PAIN AND SPASMS. PAIN MEDS BEING GIVEN ROUND THE CLOCK. REPORTS APPETITE IS GOOD. DID NOT WANT TO USE CPAP TONIGHT.NO FURTHER CONCERNS.
[2018-07-09 06:42] VITALS: BP 119/66
[2018-07-09 09:51] VITALS: BP 132/69
--- NOTE | 2018-07-09 12:46 | NUR ---
ASSUMED CARE OF PT AT 0700. ASSESSMENT COMPLETED. A&O,X4. C/O CHRONIC LOWER BACK/LOWER EXTREMITY PAIN AND MUSCLE SPASMS, PAIN MEDS GIVEN ORDERED. ROOM AIR. CPAP AT NIGHT. BM TODAY. UP WITH X1 ASSIST AND WALKER. PLAN TO GO TO REHAB ON WEDNESDAY. DR. FLOYD AT BEDSIDE THIS AM, NEW PAIN MED CHANGES. WILL CONTINUE TO MONITOR.
[2018-07-09 16:45] VITALS: BP 145/78
[2018-07-09 21:46] VITALS: BP 123/66
--- NOTE | 2018-07-10 03:34 | NUR ---
PT FEELS OPTIMISTIC ABOUT GOING TO THERAPY. REPORTS PAIN WAS BETTER TODAY. GOOD APPETITE. CALLS WITH NEEDS.
[2018-07-10 06:28] VITALS: BP 120/59
[2018-07-10 07:30] VITALS: BP 129/72
--- NOTE | 2018-07-10 16:01 | NUR ---
[facility] C[facility] AT 0700. ASSESSMENT COMPLETED. A&O,X4. C/O CHRONIC LOWER BACK AND LOWER EXTREMITY PAIN, PAIN MEDS GIVEN ORDERED. ROOM AIR. NO N/V/D. SKIN INTACT. BILATERAL PEDAL EDEMA. HX HTN, BP MEDS GIVEN ORDERED. PT WALKED IN HALLWAYS TODAY WITH WALKER, GAIT BELT, AND STANDBY ASSIST. WAITING FOR REHAB AUTHORIZATION. WILL CONTINUE TO MONITOR.
[2018-07-10 19:20] VITALS: BP 117/63
[2018-07-11 04:30] VITALS: BP 117/60
--- NOTE | 2018-07-11 04:47 | NUR ---
ASSUMED CARE AT 1900, ASSESSMENT COMPLETED. PT DENIES NAUSEA OR SOB. REPORTS PAIN IN LOWER BACK DOWN RIGHT HIP AND INTO LEG, WORSE WITH ACTIVITY; STATED HER PAIN HAS BEEN WORSE THIS EVENING SINCE THE WALK SHE TOOK IN THE AFTERNOON. REPORTED PAIN WAS MODERATELY BETTER AFTER RECEIVING HS OXYCONTIN AND LYRICA. HAS HAD OXY IR TWICE OVERNIGHT. NO OTHER CONCERNS, EXPECTING D/C TO 5N REHAB TODAY, WILL CONTINUE TO MONITOR.
[2018-07-11 07:15] VITALS: BP 108/55
[2018-07-11] MEDS ORDERED: CEFDINIR300 MG PO (09:20)
[2018-07-11] MEDS ORDERED: LYRICA 50 MG50 MG PO (09:21)
[2018-07-11] MEDS ORDERED: PREDNISONE 20 M20 M1 PO (09:22)
[2018-07-11] MEDS ORDERED: PANTOPRAZOLE SO40 M1 PO (09:22)
[2018-07-11] MEDS ORDERED: AMITRIPTYLINE H50 M2 PO (09:23)
[2018-07-11] MEDS ORDERED: CYMBALTA60 MG PO (09:23)
[2018-07-11] MEDS ORDERED: OXYCONTIN40 MG PO (09:26)
[2018-07-11] MEDS ORDERED: OXYCODONE HCL 55 MG PO (09:26)
[2018-07-11 16:00] VITALS: BP 119/62
--- NOTE | 2018-07-11 16:24 | NUR ---
PER [facility] LIASION PT'S CASE IS BEING REVIEWED BY [facility] SLEEPING CAR FO AUTHORIZATION FOR 5N. AWAITING THEIR RESPONSE. WENT TO TELL PT BUT SHE WAS SLEEPING WITH EYES CLOSED SO NOT AWAKENED.
--- NOTE | 2018-07-11 19:47 | NUR ---
ASSUMED CARE AT 0700, SHIFT ASSESSMENT DONE, MEDS GIVEN, VSS. REPORTED PAIN, PRN PAIN MED GIVEN. DENIES NAUSEA, VOMITING. AWAITING FOR REHAB INSURANCE AUTHORIZATION. STEROID DOSE WAS TAPERED TO 30 MG FROM TOMORROW [address] FLOYD. WILL CONTINUE TO ASSESS AND ASSIST WITH ADLs NEEDED.
[2018-07-11 21:11] VITALS: BP 129/67
[2018-07-12 04:50] VITALS: BP 151/74
[2018-07-12 07:00] VITALS: BP 123/77
--- NOTE | 2018-07-12 07:01 | NUR ---
PATIENT CARES WERE ASSUMED AT SHIFT CHANGE. PATIENT WAS ASSESSED AND MEDS WERE PASSED. HOURLY ROUNDING WAS DONE AND PATIENT DID APPER TO BE SLEEPING MOST OF THIS SHIFT. THE BED IS IN A LOW AND LOCKED POSITION. THE BED ALARM IS ON.
--- NOTE | 2018-07-12 09:33 | NUR ---
ASSUMED PT CARE AT 0700. ASSESSMENT COMPLETED AND IS CHARTED. VSS. PT IS AWAKE,ALERT/ORIENTED X4. REPORTS BACK/HIP PAIN. OXYCONTIN GIVEN. PT WOULD LIKE TO TRY TO WAIT A FEW HOURS BEFORE TAKING OXY IR. EDEMA NOTED TO BILATERAL ANKLES, PT STATES SOME NUMBNESS/BURNING TO ANKLES. NO OTHER IMMEDIATE CONCERNS AT THIS TIME. WILL CONTINUE WITH CURRENT CARE.
--- NOTE | 2018-07-12 14:29 | NUR ---
PT PAIN OUT OF CONTROL DUE TO DELAYED REQUEST FOR OXY IR. ENCOURAGED PT TO TAKE OXY IR EVERY 4 HOURS. PT ALSO WORKED WITH PHYSICAL THERAPY WHICH CONTRIBUTED TO HER PAIN. PT WAS INFORMED OF HER NEXT PAIN MEDICATION ON WHITE BOARD. WILL CONTINUE TO MONITOR.
--- NOTE | 2018-07-12 14:40 | NUR ---
CALL RECEIVED FROM [facility] FROM [facility]. PATIENT HAS BEEN DENIED AUTHORIZATION FOR ACUTE REHAB STAY. FOR PEER TO PEER, CALL [phone]. THIS MUST BE COMPLETED WITHIN 14 DAYS. ROUTEMAN INFORMED AND WAS CONTACTING PHYSICIAN.
--- NOTE | 2018-07-12 15:04 | NUR ---
I have reviewed the documentation by ELVIN ARIAS from 07/12/18 to 07/12/18 and I concur with it. BASIA LYONS
--- NOTE | 2018-07-12 15:28 | NUR ---
RECEIVED DENIAL FROM PT'S INS ON ACUTE REHAB. INFORMED DR FLOYD AND OFFERED P-P VS SKILLED. HE SAYS TO LOOK INTO SNF FOR PT. PT IS INTERESTED IN [facility]. ASKED DC TANK TENDER TO FAX UPDATES TO THEM. S/W YUDELKA THERE TO ALERT OF NEED TO PURSUE AUTH FOR PT. PT IS UPSET AND CRYING OVER THIS NEWS. ENCOURAGED PT TO CALL AND TALK WITH HER ABOUT THIS. PT IS CONSIDERING JUST GOING HOME. ENCOURAGED HER TO GO AHEAD AND GO TO SNF AT [facility].
--- NOTE | 2018-07-12 16:12 | NUR ---
FAXED REFERRAL TO [facility] SPOKE WITH YUDELKA IN ADM. SHE RECEIVED REFERRAL AND WILL REVIEW. DCP TO FOLLOW.
[2018-07-12 20:00] VITALS: BP 125/76
--- NOTE | 2018-07-13 03:30 | NUR ---
ASSUMED CARE AT 1900, ASSESSMENT COMPLETED. PT REPORTS HIGH LEVEL OF PAIN IN RIGHT HIP WELL LOW BACK RADIATING INTO BUTTOCKS/HAMSTRINGS; UTILIZED PRN PAIN MEDS MULTIPLE TIMES, EDUCATING PT TO USE ORAL MEDS OVER IV MUCH POSSIBLE, WELL REPOSITIONING WITH PILLOWS AND SITE MASSAGE TO ALLEVIATE PAIN. DENIED SOA OR NAUSEA. GIVEN SNACK AT HS. NO OTHER CONCERNS, WILL CONTINUE TO MONITOR.
[2018-07-13 04:30] VITALS: BP 120/65
--- NOTE | 2018-07-13 08:42 | NUR ---
Followup: extreme class III obesity, BMI 63. On carb controlled diet, BG adequate, tolerating diet. Has planned bariatric gastric sleeve surgery for August. Low nutrition risk.
[2018-07-13 08:53] VITALS: BP 118/64
--- NOTE | 2018-07-13 14:23 | NUR ---
FAXED REFERRAL TO [facility] SPOKE WITH AMY IN ADM. SHE RECEIVED REFERRAL AND REVIEWED SHE WILL NOT BE ABLE TO ACCEPT PT. CAN' MEET HER NEEDS AT THIS TIME. FAXED REFERRAL TO [facility] SPOKE WITH KAYLA IN ADM. SHE RECEIVED REFERRAL AND REVIEWED SHE CAN ACCEPT PT. CLINICALLY AND WILL SUBMIT FOR AUTH. DCP TO FOLLOW.
[2018-07-13 16:22] VITALS: BP 136/72
[2018-07-13 19:14] VITALS: BP 113/65
--- NOTE | 2018-07-14 02:19 | NUR ---
ASSUMED CARE AT 1900, ASSESSMENT COMPLETED. PT REPORTS FEELING BETTER TONIGHT, STATES SHE IS TOLERATING THERAPY BETTER AND HAVING LESS PAIN. DENIES NAUSEA OR SOB, DECLINES USING CPAP AT [facility]. BLOOD SUGARS STABLE, TAPERING PO STEROID DOSES PER DR. FLOYD. CALLS APPROPRIATELY FOR NEEDS. NO OTHER CONCERNS, EXPECT D/C TO [facility], WILL CONTINUE TO MONITOR.
[2018-07-14 04:31] VITALS: BP 123/66
[2018-07-14 08:00] VITALS: BP 126/49
--- NOTE | 2018-07-14 08:23 | NUR ---
ASSUMED PT CARE AT 0700. ASSESSMENT COMPLETED AND IS CHARTED. VSS. PT IS AWAKE, ALERT/ORIENTED X4. REPORTS PAIN TO BACK/RIGHT HIP 7/10. OXYCODONE GIVEN ORDERED. 2+ EDEMA TO BILATERAL ANKLES. NO IMMEDIATE CONCERNS OR ISSUES AT THIS TIME. WILL CONTINUE WITH CURRENT CARE AND PAIN MANAGEMENT.
[2018-07-14 13:51] VITALS: BP 114/61
--- NOTE | 2018-07-14 16:09 | NUR ---
S/W PRE-CERT LINE FOR BC MA & CASE HAS BEEN ASSISGNED TO RN REVIEWER BUT IT IS STILL PENDING THEY HAVE KAYLA FROM [facility] LISTED TO CONTACT ONCE DECISION IS MADE.
--- NOTE | 2018-07-14 16:29 | NUR ---
PT DOING WELL THIS SHIFT. WORKED WITH PHYSICAL THERAPY AND TOLERATED WELL. PAIN IS WELL-CONTROLLED TODAY WITH CURRENT PAIN REGIMINE. HAS NOT REQUIRED IV PAIN MEDICATION. WILL CONTINUE WITH CURRENT CARE.
[2018-07-14 21:35] VITALS: BP 132/69
--- NOTE | 2018-07-15 03:12 | NUR ---
ASSUMED PT CARE 1900. PT ALERT AND ORIENTED. VSS. REASSESSMENT COMPLETE. PT DENIES N/V. PT REPORTS PAIN, SEE EMAR. AT BEDSIDE. PT CALM AND COOPERATIVE. PT CALL LIGHT AND PERSONAL BELONIONGS WITHIN TRACH. WILL CONTINUE POC UNTIL EOS.
[2018-07-15 05:00] VITALS: BP 113/52
[2018-07-15 07:30] VITALS: BP 115/62
[2018-07-15 08:33] VITALS: BP 115/62
[2018-07-15] MEDS ORDERED: PREDNISONE 20 M20 M1 PO (14:29)
[2018-07-15] MEDS ORDERED: AMITRIPTYLINE H50 M2 PO (14:29)
--- NOTE | 2018-07-15 14:39 | NUR ---
PT. [place] TODAY [place] [facility] [place]SUMMARY TO FACILITY SPOKE WITH KAYLA IN ADM. SHE ARRANGED TRANSPORT VIA [facility] FOR [id number]. PT. WILL NOTIFY FAMILY OF DISCHARGE AND TIME OF TRANSPORT. UNIT NOTIFIED AND CHART DIANETICIST PER US. RN TO CALL REPORT TO [phone].
--- NOTE | 2018-07-15 16:09 | NUR ---
Pt in and out of bed independently today.Assessment completed.vss.C/o back and right hip pain.Meds given as ordered with relief.Pt ambulated in hallways with minimal assist.Dr Kemp here,order noted.Later this afternoon,social work case manager informed this rn that pt will be dc to [facility] between 1630 to [address].Dr Kemp notified and he said he will come back to unit to finalized the dc summary.But around 1600,Dr Kemp didnot show up,social work case manager went to Doctor's office and ask Dr Reyes to write new rx.Pt to dc in [facility] at 1630.Will continue to monitor.
== END 2018-07-15 17:25 | DRG 552 ==
LOC: ER 12:47 → 4E 17:38 → EROBS 17:38 → 4E 19:18 → ENTRNSPT 07-06 15:18 → EDTRNSPTSTS 07-06 15:23 → 4E 07-15 17:25
PROVIDERS: ADMIT Family Medicine
DX: M54.16 Radiculopathy, lumbar region (principal); N39.0 Urinary tract infection, site not specified; Z68.44 Body mass index [BMI] 60.0-69.9, adult; M06.9 Rheumatoid arthritis, unspecified; F07.81 Postconcussional syndrome; K21.9 Gastro-esophageal reflux disease without esophagitis; G89.29 Other chronic pain; M25.559 Pain in unspecified hip; E66.01 Morbid (severe) obesity due to excess calories; M51.36 Other intervertebral disc degeneration, lumbar region; R32 Unspecified urinary incontinence; M16.0 Bilateral primary osteoarthritis of hip; D86.9 Sarcoidosis, unspecified; G47.00 Insomnia, unspecified; Z90.710 Acquired absence of both cervix and uterus; Z87.891 Personal history of nicotine dependence; Z88.8 Allergy status to other drugs, medicaments and biological substances; Z79.52 Long term (current) use of systemic steroids; Z81.8 Family history of other mental and behavioral disorders; Z82.49 Family history of ischemic heart disease and other diseases of the circulatory system; Z79.899 Other long term (current) drug therapy
CPT/HCPCS: 10084; 10783

== ENCOUNTER 2018-08-15 18:30 | Inpatient (IN) | payer BC, OTHER ==
[~2018-08-15] VITALS: Ht 185.4 cm; Wt 226.8 kg
[2018-08-15 18:30] VITALS: BP 136/94
[~2018-08-15 18:30] MED LIST changes: +AMITRIPTYLINE H50 M2 PO; +CYMBALTA60 MG PO; +OXYCONTIN10 M1 PO; +PANTOPRAZOLE SO40 M1 PO; +PREDNISONE 20 M20 M1 PO
[2018-08-15 19:24] LABS: HEMATOCRIT 32.3 % (37.0-47.0); HEMOGLOBIN 10.3 gm/dL (12.0-15.0); MCH 24.6 pg (26.0-34.0); MCV 76.7 fL (80.0-100.0); PLATELET COUNT 292 thou/uL (150-400); RBC 4.21 mil/uL (4.20-5.00); RDW 16.2 % (10.5-14.5); WBC 4.2 thou/uL (4.0-11.0)
[2018-08-15 19:31] LABS: CALCIUM 9.4 mg/dL (8.5-10.1); CREATININE 0.8 mg/dL (0.6-1.0); POTASSIUM 3.5 mmol/L (3.5-5.1)
[2018-08-15 19:52] LABS: ABSOLUTE NEUTROPHILS 2.6 thou/uL (1.4-8.2); ANISOCYTOSIS 1+; ATYPICAL LYMPHS 1 %; NUCLEATED RBCS 1 /100WBC; POLYCHROMASIA OCCASIONAL
[2018-08-15 20:45] LABS: URINE BILIRUBIN NEGATIVE (Negative); URINE BLOOD NEGATIVE (Negative); URINE CLARITY CLEAR; URINE COLOR YELLOW; URINE GLUCOSE-RANDOM* NEGATIVE (Negative); URINE KETONES TRACE (Negative); URINE NITRITE-REFLEX NEGATIVE (Negative); URINE PROTEIN (DIPSTICK) TRACE (Negative); URINE UROBILINOGEN 0.2 E.U./dl (0.2-1.0)
[2018-08-15 20:50] LABS: URINE LEUKOCYTES-REFLEX 2+ (Negative)
[2018-08-15 21:03] LABS: CASTS None Seen /LPF (None Seen); CRYSTALS None Seen /LPF (None Seen); SQUAMOUS 0-3 Few /LPF (0-3); URINE RBC None Seen /HPF (0-2)
[2018-08-15 21:30] VITALS: BP 129/64
[2018-08-15 22:00] VITALS: BP 128/68
[2018-08-16 02:50] VITALS: BP 101/43
--- NOTE | 2018-08-16 03:31 | NUR ---
PATIENT ARRIVED ON UNIT VIA CART FROM ED. ACCOMPINEID BY ED PERSONEL. PATIENT ALERT AND ORIENTED X4. C/O SEVERE PAIN. HAD 1MG DILAUDID ORDERED. CALLED DR FLOYD TO INCREASE IT TO 2MG. WAS INCREASED AND GIVEN. UP TO BR WITH ASSIST OF 1. SLEPT OFF AND ON DURING NIGHT.
--- NOTE | 2018-08-16 05:06 | NUR ---
PATIENT ALERT AND ORIENTED X4. DENIES PAIN. SLEEPS SITTING UP IN BED. HAS EXTERNAL FEMALE CATH. ACCUCHECK WAS 119, RECIEVED NO SS COVERAGE. HAS Kimberly BURNS FOR DIALYSIS. SMALL RED AREA ON L STUMP. JOON AMPUTEE. SLEPT OFF AND ON DURING NIGHT.
[2018-08-16 08:10] VITALS: BP 102/65
--- NOTE | 2018-08-16 14:29 | NUR ---
INITIAL ASSESSMENT: Pt evaluated for d/c planning needs. Reviewed chart and spoke with nurse and pt. Pt is alert and oriented. Pt lives at home with spouse and children. When pt was hospitalized at [facility] in July, she discharged to [facility][1] for SNF. Pt was d/c home from SNF on 08/10/18. Pt has walker, cane and nebulizer at home. Pt plans on returning home on d/c from hospital. Will remain available to assist as needed.
[2018-08-16 20:35] VITALS: BP 124/62
--- NOTE | 2018-08-17 02:38 | NUR ---
PT IN A LOT OF LEG PAIN, DESCRIBING IT " BURNING PAIN", CALLED TO DR FLOYD WITH ORDERS THOUGH PATIENT VERBALIZED THAT HER TREAMTENT IS GETTING BACKWARDS DUE TO [employer] DOES NOT WORK FOR HER BUT SHE EVENTUALLY TOOK THE PILLS, GIVEN DOSE O THE VOLTAREN CREAM, OTHERWISE IS SLIGHTLY MOBILE, MUCH POSSIBLE SHE WANTS TO DO THINGS ON HER OWN, HAS BEEN EDUCATED ABOUT STAFF ASSISTING HER TO THE BATHROOM, ON ROOM AIR, TRANSFERS TO COMMODE WITH X1 ASSIST, MONIORED.
[2018-08-17 04:49] VITALS: BP 111/68
[2018-08-17 05:37] LABS: CALCIUM 8.5 mg/dL (8.5-10.1); CREATININE 0.8 mg/dL (0.6-1.0); POTASSIUM 3.1 mmol/L (3.5-5.1)
[2018-08-17 07:43] VITALS: BP 121/62
--- NOTE | 2018-08-17 13:02 | NUR ---
Pt with class III extreme obesity, BMI 66. Multiple hospitalizations, readmitted with intractable back pain. Attempted visit, pt with lights out, moaning. Denied need for nursing to assist. Lunch tray just arrived, assisted with set up. Pt reports still trying to work with physician for possible bariatric surgery. Weight hx in computer reviewed and pt showing gain >50 lb since May if current wt is accurate. Has heart healthy diet order. Use Premier high protein supplement at home, will offer Ensure Max which is comparible. Pt voiced no questions. Low nutrition risk
[2018-08-17 15:57] VITALS: BP 129/66
[2018-08-17 19:52] VITALS: BP 134/71
--- NOTE | 2018-08-18 04:40 | NUR ---
PAIN CONTROLLED TONIGHT, LYMPHEDEMA WRAP TO BLE INTACT, UP WITH STANBY ASSIST TO THE BSC, ON ROOM AIR, ALERT/ORIENTED X4, REMAINS ON CONTACT ISO FOR MRSA, NEW IV TO RIGHT FOREARM STARTED LAST NOC, MONITORED.
[2018-08-18 05:08] VITALS: BP 141/54
[2018-08-18 08:15] VITALS: BP 133/60
--- NOTE | 2018-08-18 09:44 | NUR ---
FAXED REFERRAL TO [facility] [place] SPOKE WITH KAYLA IN ADM, SHE RECEIVED REFERRAL AND WILL REVIEW. ANTICIPATE DC TOMORROW 08/19. DCP TO FOLLOW.
[2018-08-18 10:01] LABS: CALCIUM 9.2 mg/dL (8.5-10.1); CREATININE 0.7 mg/dL (0.6-1.0); POTASSIUM 3.7 mmol/L (3.5-5.1)
[2018-08-18 16:01] VITALS: BP 105/49
--- NOTE | 2018-08-18 18:06 | NUR ---
ASSUMED CARE AT 0700, SHIFT ASSESSMENT DONE, MEDS GIVEN, VSS. REPORTED PAIN, PRN PAIN MEDS GIVEN. WORKED WITH PHYSICAL AND OCCUPATIONAL THERAPHY. HAS LYMPHADEMA WRAPS FOR BILATERAL LOWER EXTREMITY. ON ISOLATION FOR MRSA. WILL CONTINUE TO ASSESS AND ASSIST WITH ADLs NEEDED.
[2018-08-18 19:47] VITALS: BP 112/50
--- NOTE | 2018-08-19 03:50 | NUR ---
ASSUMED CARE FROM DAY SHIFT PT CONT TO C/O OF LOWER BACK PAIN THEN STARTED TO C/O OG HEADACHE THAT SHE SAYS SHE HAD FOR 3 DAYS AND MD IS AWARE, HOT TOWEL PLACED ON FOREHEAD FOR COMFORT, PAIN MEDICATION GIVEN OTC PRESCRIBED AND REQUESTED WILL CONTINUE WITH CURRENT PLAN OF CARE.LEÓN REPORT CHANGES OR ABNORNMAL FINDINGS.
[2018-08-19 05:12] VITALS: BP 118/54
[2018-08-19 07:35] VITALS: BP 131/71
[2018-08-19] MEDS ORDERED: VOLTAREN GEL 1100 G1 TOP (07:59)
[2018-08-19] MEDS ORDERED: MS CONTIN 60 MG60 M1 PO (08:00)
[2018-08-19] MEDS ORDERED: OXYCODONE HCL30 MG PO (08:00)
--- NOTE | 2018-08-19 09:28 | NUR ---
PT A&OX4, IV INTACT IN R FA, AMBULATES WITH ASSIST X1. STATES PAIN AT 8/10. PLANS ARE TO DC TODAY. MORPHINE ER AND OXYCODONE IR GIVEN FOR PAIN. WILL CONT POC.
--- NOTE | 2018-08-19 15:27 | NUR ---
Following for d/c planning needs. Spoke with Viridiana at [facility]. She has not received insurance authorization. Will remain available to assist as needed.
[2018-08-19 16:33] VITALS: BP 109/56
--- NOTE | 2018-08-19 17:53 | NUR ---
ASSUMED CARE OF PT AT 17:45. PT C/O OF HEADACHE, PHYSICIAN NOTIFIED FOR NEW MED ORDERS. WILL CONTINUE TO MONITOR.
[2018-08-19 21:20] VITALS: BP 79/57
[2018-08-20 04:00] VITALS: BP 126/66
--- NOTE | 2018-08-20 04:06 | NUR ---
PT CONTINUES TO C/O LOWER BACK PAIN. LYPHEDEMA WRAPS IN PLACE UNTIL WHEN PT REQUESTED FOR THEM TO BE REMOVED FOR A WHILE AT AROUND 0400HRS. WILL WRAP LEGS BACK UP. PT SLOWLY GETS UP BY SELF TO USE BSC.WILL CONTINUE WITH POC TILL EOS.
[2018-08-20 09:06] VITALS: BP 123/51
--- NOTE | 2018-08-20 12:18 | NUR ---
ASSUMED CARE AT 0700, SHIFT ASSESSMENT DONE, MEDS GIVEN, VSS. REPORTED PAIN TO LOWER EXTERMITY AND BACK, PRN PAIN MEDS GIVEN. WILL CONTINUE TO ASSESS AND ASSIST WITH ADLs NEEDED.
[2018-08-20 17:55] VITALS: BP 113/51
[2018-08-20 19:51] VITALS: BP 120/57
[2018-08-21 04:36] VITALS: BP 117/53
--- NOTE | 2018-08-21 07:45 | NUR ---
NOC SHIFT SUMMARY: PT CONTINUES TO HAVE ALOT OF PAIN TO BACK AND LEGS. LEGS REMAIN WRAPPED. PT HAD A LARGE BM PER BSC. PT IS GETTING IV DIULADID PRN FOR PAIN WELL ORAL PAIN MEDS. PT C/O PAIN AND BURNING IN JOON THIGHS AND HIPS. OBSERVED EATING WELL WITH NO ISSUES.AFEBRILE.AWAITING REHAB PLACEMENT.
--- NOTE | 2018-08-21 15:24 | NUR ---
ASSUMED CARE OF PT AT 0700. ASSESSMENT COMPLETED. A&O,X4. C/O CHRONIC LOWER BACK PAIN AND LOWER EXTREMITY PAIN, PAIN MEDS GIVEN ORDERED. REPORTING INCREASED SWELLING BILATERAL LOWER EXTREMITES, NEW LASIX ORDER GIVEN ORDERED. FAMILY AT BEDSIDE. CALL LIGHT WITHIN REACH. MAKES NEEDS KNOWN. FALL PRECAUTIONS IN PLACE. WILL CONTINUE TO MONITOR UNTIL EOS.
[2018-08-21 20:06] VITALS: BP 108/55
--- NOTE | 2018-08-22 04:02 | NUR ---
Assumed care of pt at 1900. Pt a&o x4. C/o pain 10/10 in lower extremities and hips. Prn pain meds administered. Bilateral lower extremity edema. Lower extremities wrapped in hilton bandage. Call light within reach. Will continue to monitor and assist with needs.
[2018-08-22 04:57] VITALS: BP 115/40
[2018-08-22 07:50] VITALS: BP 129/76
--- NOTE | 2018-08-22 11:02 | NUR ---
ASSUMED CARE OF PT AT 0700. ASSESSMENT COMPLETED. A&0,X4. C/O CHRONIC LOWER BACK AND BLE PAIN, PAIN MEDS GIVEN ORDERED. DR. FLOYD INSTRUCTED TO TRANSITION FROM IV TO PO PAIN MEDS. BLE EDEMA. ROOM AIR. VSS. C/O ITCHING, PHYSICIAN NOTIFIED, BENADRYL ORDERED - WILL GIVE ORDERED. NO OTHER CHANGE IN STATUS. WILL CONTINUE TO MONITOR.
--- NOTE | 2018-08-22 12:35 | NUR ---
Followup: class III extreme obesity with BMI 66. Diet has newly been changed by bariatric surgery to clear liquids. Spoke with nursing-stated surgeon did not feel pt was making progress towards future need for gastric sleeve surgery so would like pt to be on clear liquid diet and Ensure Max allowed. Remains low nutrition risk
--- NOTE | 2018-08-22 15:43 | NUR ---
PER KAYLA FROM [facility] [place] DENIED SNF APPROVAL BY PT'S INSURANCE. S/W DR MENDEZ AND HE WISHES TO PROCEED WITH APPEAL. I HAVE CALLED KAYLA TO REQUEST COPY OF DENIAL LETTER ONCE IT IS RECEIVED TO BEGIN APPEAL PROCESS. PT AWARE.
[2018-08-22 20:15] VITALS: BP 116/53
--- NOTE | 2018-08-23 03:42 | NUR ---
Assumed care of pt at 1900. Pt alert and oriented x4. Pt calls nurse in room and is tearful. States her pain is not controlled and she wishes to discharge and go home if pain remains uncontrolled. Dr Kishan adkins. Pain medication ordered. Pharmacy calls and states pain medication dosage is too high to be given IV. Pain medication switched to IM. Pharmacist states to give pain med one time and they will deactivate the order. Call light within reach. Able to make needs known. Will continue to monitor and assist with needs as they arise.
[2018-08-23 03:50] VITALS: BP 125/61
[2018-08-23 08:00] VITALS: BP 135/66
[2018-08-23 13:32] VITALS: BP 135/66
[2018-08-23 13:33] VITALS: BP 135/66
[2018-08-23 13:55] VITALS: BP 135/66
[2018-08-23 13:59] VITALS: BP 135/66
--- NOTE | 2018-08-23 14:39 | NUR ---
NOTIFIED [facility] LIASION OF PLANNED DC LATER TODAY AND TO RESUME HH SERVICES.
--- NOTE | 2018-08-23 18:28 | NUR ---
ASSUMED CARE OF PT AT 0700. ASSESSMENT COMPLETED. A&O,X4. C/O CHRONIC PAIN, PAIN MEDS GIVEN ORDERED. JOEL HELD THIS AM PER DR. FLOYD. CONSULTED PAIN CLINIC, PT TO FOLLOW UP AT APPOINTMENT TOMORROW WITH PAIN CLINIC. PT STATES UNDERSTANDING. DISCHARGE ORDERS BY DR. FLOYD. NEW SCRIPTS GIVEN TO PT. D/C INFORMATION GIVEN. IV REMOVED, NO ACTIVE BLEEDING. PT LEFT VIA WHEELCHAIR AT 18:07 WITH . ALL BELONGINGS SENT WITH PT.
== END 2018-08-23 18:41 | disposition home or self-care (01) | DRG 603 ==
LOC: ER 18:30 → EROBS 20:38 → 4E 20:38 → ENTRNSPT 08-23 17:52 → 4E 08-23 18:41
PROVIDERS: Emergency Medicine; ADMIT Family Medicine
DX: L03.116 Cellulitis of left lower limb (principal); N39.0 Urinary tract infection, site not specified; Z68.44 Body mass index [BMI] 60.0-69.9, adult; M48.061 Spinal stenosis, lumbar region without neurogenic claudication; M06.9 Rheumatoid arthritis, unspecified; L03.115 Cellulitis of right lower limb; K21.9 Gastro-esophageal reflux disease without esophagitis; G89.29 Other chronic pain; M25.559 Pain in unspecified hip; E66.01 Morbid (severe) obesity due to excess calories; D86.9 Sarcoidosis, unspecified; I10 Essential (primary) hypertension; Z90.710 Acquired absence of both cervix and uterus; Z88.8 Allergy status to other drugs, medicaments and biological substances; Z87.891 Personal history of nicotine dependence; Z81.8 Family history of other mental and behavioral disorders; Z80.9 Family history of malignant neoplasm, unspecified; Z79.899 Other long term (current) drug therapy
CPT/HCPCS: 10084

== ENCOUNTER 2018-09-14 02:06 | Inpatient (IN) | payer BC, OTHER ==
[2018-09-14] VITALS (7 sets, daily range): BP systolic 114–156; BP diastolic 64–86
[~2018-09-14] VITALS: Ht 185.4 cm; Wt 219.1 kg
[~2018-09-14 02:06] MED LIST changes: +MS CONTIN 60 MG60 M1 PO; +VOLTAREN GEL 1100 G1 TOP
[2018-09-14] MEDS ORDERED: BACLOFEN20 MG PO (02:15)
--- NOTE | 2018-09-14 06:30 | NUR ---
ADMITTED FROM ER UNDER 'S CARE FOR INTRACTIBLE BACK PAIN. URINE COLLECTED WHEN ARRIVED ON UNIT. EDUCATION AND HX COMPLETED. PER PT, PT IS GETTING READY TO GO UNDER GASTRIC SLEEVE WITH THAT SHE'S ON CLEAR LIQUID DIET, FOR CLARIFICATION, REGULAR DIET IS CANCELLED AND WILL GIVE REPORT TO DAY RN TO FOLLOW UP. ISOLATION FOR MRSA REPIRATORY. VSS. NO S/S ACUTE DISTRESS NOTED OR REPORTED AT THIS TIME. WILL CONT TO MONITOR ANY CHANGES IN CONDITION.
[2018-09-14 06:44] LABS: URINE BILIRUBIN NEGATIVE (Negative); URINE BLOOD NEGATIVE (Negative); URINE CLARITY CLEAR; URINE COLOR YELLOW; URINE GLUCOSE-RANDOM* NEGATIVE (Negative); URINE KETONES NEGATIVE (Negative); URINE LEUKOCYTES-REFLEX NEGATIVE (Negative); URINE NITRITE-REFLEX NEGATIVE (Negative); URINE PROTEIN (DIPSTICK) NEGATIVE (Negative); URINE UROBILINOGEN 0.2 E.U./dl (0.2-1.0)
[2018-09-14 07:01] LABS: HEMATOCRIT 34.4 % (37.0-47.0); HEMOGLOBIN 10.8 gm/dL (12.0-15.0); MCH 22.7 pg (26.0-34.0); MCHC 31.3 g/dL (28.0-37.0); MCV 72.6 fL (80.0-100.0); RBC 4.74 mil/uL (4.20-5.00); RDW 17.2 % (10.5-14.5)
[2018-09-14 07:49] LABS: CALCIUM 9.1 mg/dL (8.5-10.1); POTASSIUM 4.5 mmol/L (3.5-5.1)
--- NOTE | 2018-09-14 09:40 | NUR ---
PT COMPLAINING OF PAIN TO LOWER BACK AND MOANING. PT STATED PAIN IS 10 ON 1-10 SCALE. PT STATED IT IS SHARP WITH MOVEMENT. ADM MORPHINE 4MG IV FOR PAIN. PT STATED SHE GETS 60MG OF MORPHINE TWICE A DAY AND WANTED TO KNOW IF THIS WAS STRONGER. PT WAITING FOR A HOSPITAL BED TO BE DELIVERED TO HERE HOME BY SAT. PT STATED SHE WAS WAITING FOR SLEEVE SURGERY AND FOR INSURANCE TO APPROVE PROCEDURE.
--- NOTE | 2018-09-14 12:25 | NUR ---
PT STATED THAT THE MORPHINE WILL NOT HOLD HER PAIN. PT STATED WHAT SHE GOT IN ER HELPED WITH HER PAIN. PT GOT DILAUDID. WILL CALL TO GET ORDER FOR INCREASED PAIN MED.
--- NOTE | 2018-09-14 12:31 | NUR ---
CALLED DR. FLOYD FOR MED ORDERS.
--- NOTE | 2018-09-14 12:56 | NUR ---
ADM DILAUDID 1MG IV FOR PAIN TO LOWER BACK OF 10 ON 1-10 SCALE. PT STATED SHE IS AT HER BREAKING POINT AND JUST WANT HER PAIN TO DECREASE. SHE STATED SHE DIDN'T CARE WHAT WAS ON BLACK AND WHITE, SHE WANTED TO BE COMFORTABLE THAT IS IN THE MEANS OF [place] LAW AND THIS STAY IS BEING PAID FOR AND SHE STATED THAT WE ARE GETTING PAID, SO SHE WANTS TO BE COMFOTABLE AND DIDN'T CARE WHAT WE THOUGHT. SHE STATED SHE IS 6'1" AND 483 PDS AND IT TAKES MORE PAIN MED TO CONTROL HER PAIN AND SHE ALSO TAKES PAIN MEDS AT HOME AND HAS HAD PAIN FOR YEARS TO LOWER BACK.
[2018-09-14] MEDS ORDERED: MIRALAX17 GM PO (12:59)
--- NOTE | 2018-09-14 14:51 | NUR ---
PT ADMITTED RELATED TO INTRACTABLE BACK PAIN. CM REVIEWED CHART AND SPOKE WITH CARE TEAM. CM MET WITH PT AT BEDSIDE THIS DAY. PT IS A&O4. CM ROLE INTRODUCED. PT INDICATED SHE LIVES IN A HOUSE WITH HER SPOUSE AND HER CHILDREN WITH 2 STEPS TO ENTER AND NO STEPS INSIDE. PT INDICATED SHE HAD USED A FWW AND A CANE TO ASSIST WITH MOBILITY PROFESSOR OF SOCIAL WORK. PT INDICATED SHE IS WORKING WITH [facility] TO GET A HOSPITAL BED FOR USE AT HOME. SHE INDICATED SHE ANTICPATES IT BEING DELIVERED WEDNESDAY. PT INDICATED SHE HAD BEEN ON SERVICE WITH [facility] PROFESSOR OF SOCIAL WORK. PT INDICATED SHE DOENS'T FEEL SAFE RETURNING HOME WITHOUT HOSP BED. CM INDICATED THAT THERE IS NO [place]UR[place]EE THAT WE WOULD BE ABLE TO KEEP PT HERE UNTIL BED ARRIVES. CM TO FOLLOW INDICATED WITH DC PLANNING.
--- NOTE | 2018-09-14 15:35 | NUR ---
CALLED DR. FLOYD FOR MED ORDERS.
--- NOTE | 2018-09-14 15:40 | NUR ---
ADM DILAUDID 1MG IV FOR PAIN TO LOWER BACK. ALSO PT WANTING TO KNOW ABOUT LYMPHEDEMA THERAPY, AND WHAT SHE GOT IN ER HELPED MAKE HER MORE COMFORTABLE.
--- NOTE | 2018-09-14 18:16 | NUR ---
ADM BENADRYL OINT CREAM TO BUTTOCKS AND LOWER BACK FOR COMPLAIN OF ITCHING.
--- NOTE | 2018-09-14 19:05 | NUR ---
ADM DILAUDID 1MG IV FOR PAIN TO LOWER BACK OF 9 ON 1-10 SCALE. FAMILY AT BEDSIDE.
--- NOTE | 2018-09-14 20:05 | NUR ---
CALLED DR. FLOYD FOR MED ORDERS.
[2018-09-15 04:45] VITALS: BP 120/65
--- NOTE | 2018-09-15 05:28 | NUR ---
ASSUMED CARE OF PT AT 1900HRS. PT IS AOX4 AND CALLS FOR HELP NEEDED. PT REPORTED ROSEBUD PAIN AND WAS TREATED WITH MEDIATION. PT WAS ABLE TO GET SOME SLEEP THIS SHIFT. PT USED BEDSIDE COMMODE WITH ONE ASSIST. FALL PRECAUTION IN PLACE. NO OTHER S/S OF ACUTE DISTRESS. WILL CONTINUE TO MONITOR.
[2018-09-15 05:30] LABS: HEMATOCRIT 32.7 % (37.0-47.0); HEMOGLOBIN 10.2 gm/dL (12.0-15.0); MCH 22.6 pg (26.0-34.0); MCHC 31.3 g/dL (28.0-37.0); RBC 4.55 mil/uL (4.20-5.00); RDW 17.3 % (10.5-14.5); WBC 3.6 thou/uL (4.0-11.0)
[2018-09-15 05:51] LABS: ALBUMIN 3.4 g/dL (3.4-5.0); CALCIUM 9.3 mg/dL (8.5-10.1); CREATININE 0.8 mg/dL (0.6-1.0); POTASSIUM 4.5 mmol/L (3.5-5.1); TOTAL BILIRUBIN 0.7 mg/dL (<0.1-1.0); TOTAL PROTEIN 6.7 g/dL (6.4-8.2)
[2018-09-15] MEDS ORDERED: ACETAMINOPHEN325 M1 PO (07:02)
[2018-09-15 08:27] VITALS: BP 136/72
--- NOTE | 2018-09-15 10:54 | NUR ---
WOUND CARE CONSULT; NO WOUNDS WERE IDENTIFIED TO BILATERAL LE'S ONLY HEALED SCARED AREAS OF PRIOR INJURY. THIS PATIENT REPORTS A HISTORY OF COMPRESSION WRAPS AND WOUNDS. THIS PATIENT IS CRYING RELATED TO HER CONDITION AND OBESITY. SHE STATES SHE WAS OVER 500LB BUT LOST 50 LBS RECENTLY. THE PATIENT IS INCONTINENT OF URINE SOMETIMES. RECOMMENDATION; TUBIGRIPS TO LOWER EXTREMITIES FOR NOW. DISCUSSED WITH RN.
--- NOTE | 2018-09-15 13:04 | NUR ---
DISCHARGE PLANNING. PATIENT IS READY FOR DISCHARGE. POST ACUTE RECOMMENDED AT DISCHARGE. REFERRAL FAXED TO KAYLA, [facility], PER REQUEST. CALL PLACED TO KAYLA TO NOTIFY OF REFERRAL. KAYLA AWARE THAT PATIENT IS READY FOR DC TODAY. KAYLA TO DO BEDSIDE EVAL WITH PATIENT TODAY. WILL BEGIN INSURANCE AUTH PROCESS. UNIT CM/SW AWARE. FOLLOWING TO ASSIST.
--- NOTE | 2018-09-15 13:56 | NUR ---
TOWARDS POC PT A/O X4, VSS, AFEBRILE. PAIN MANAGED BY MEDS. PRN ATIVAN GIVEN. PT BEEN COMPLAINING ABOUT THE CARE SHE'S GETTING TODAY. MRI TECHNOLOGIST WAS NOTIFIED AND TALKED TO PT. WILL CONTINUE TO MONITOR.
[2018-09-15 14:46] VITALS: BP 154/90
--- NOTE | 2018-09-15 17:21 | NUR ---
PER PHYSICIAN AND PT'S REQUEST REFERRAL WAS SENT TO [facility] FOR REVIEW FOR POSSIBLE ADMISSION. PT AND OT WERE ORDERED NOTES TO BE FAXED ONCE ENTERED. CM TO FOLLOW INDICATED WITH DC PLANNING.
[2018-09-15 20:17] VITALS: BP 129/69
--- NOTE | 2018-09-16 04:58 | NUR ---
ASSUMED CARE OF PT AT 1900HRS. PT AOX4 AND CALLS FOR HELP NEEDED. PT REPORTED PAIN AND WAS TREATED WITH MEDICATION FREQUENTLY. FALL PRECAUTION IN PLACE. NO OTHER S/S OF ACUTE DISTRESS. PT WAS ABLE TO GET SOME SLEEP. WILL CONTINUE TO MONITOR.
[2018-09-16 06:33] VITALS: BP 138/72
--- NOTE | 2018-09-16 10:03 | NUR ---
WOUND CARE FOLLOW UP; THIS PATIENT REPORTS SHE IS DOING MUCH BETTER TODAY. SHE IS TOLERATING THE TUBIGRIPS WELL. NO NEW CONCERNS. RECOMMENDATION; CONTINUE TUBIGRIPS. DISCUSSED WITH PATIENT
--- NOTE | 2018-09-16 10:06 | NUR ---
Assess due to extreme class III obesity, BMI 63.7. Pt with multiple admissions for back pain. Familiar with pt. Pt reports has paperwork submitted for bariatric surgery and awaiting approval. Eating primarily liquid diet. Usually drinks Ensure Max while hospitalized which is currently on back order. Has Premier drinks at home which is comparible so spouse to bring in. Otherwise will use glucerna shakes. Low nutrition risk
--- NOTE | 2018-09-16 12:01 | NUR ---
Assumed pt care at 7am.Assessment completed.vss.Pt in and out of bed to chair or bsc with assist.am meds given and well tolerated.Pt was upset early this shift due to lack of max protein shake from the seafood specialist.Dietitian notified and she came to talk to pt. to bring some for pt from home. Complete bad bath given by concrete products dispatcher.Will continue to monitor.
[2018-09-16 15:00] VITALS: BP 145/70
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
[2018-09-16 20:15] VITALS: BP 120/63
[2018-09-17 04:56] VITALS: BP 142/98
--- NOTE | 2018-09-17 05:42 | NUR ---
ASSUMED CARE OF PT AT 1900HRS. PT AOX4 AND CALLS FOR HELP NEEDED. PT REPORTED SOME PAIN AND REQUESTED PRN PAIN MEDS. FALL PRECAUTION IN PLACE. NO OTHER S/S OF ACUTE DISTRESS. WILL CONTINUE TO MONITOR.
[2018-09-17 07:18] VITALS: BP 136/53
--- NOTE | 2018-09-17 15:39 | NUR ---
ASSUMED CARE 0700. A/OX4, PAIN AND ANXIETY MANAGED WITH MEDICATIONS. UP WITH STAND BY TO COMMODE. PROGRESSING TOWARDS GOALS. WAITING FOR HOSPITAL BED TO BE DELIVERED TO HER HOME. FALL PRECAUTIONS IN PLACE. ISOLATION FOR MRSA IN NARES. CALLS APPROPRIATLEY. LIKELY TO DC ON WEDNESDAY PER DR FLOYD
[2018-09-17 16:07] VITALS: BP 116/63
[2018-09-17 21:45] VITALS: BP 125/69
[2018-09-18 05:05] VITALS: BP 123/75
--- NOTE | 2018-09-18 06:20 | NUR ---
PT TRANSFERRING TO BEDSIDE COMMODE INDEPENDENTLY AND IS TOLERATING FAIR. MORPHINE ER AND IR ARE PROVIDING PARTIAL PAIN RELIEF. LORAZEPAM GIVEN FOR ANXIETY. RESTING OFF AND ON. CALL LIGHT WITHIN REACH. WILL CONTINUE TO PROVIDE FREQUENT OBSERVATION.
[2018-09-18 08:00] VITALS: BP 135/67
--- NOTE | 2018-09-18 13:07 | NUR ---
ASSUMED CARE 0700. ALERT X4, PAIN MANAGED WITH MEDICATIONS, CALLS APPROPRIATLEY FOR ASSISTANCE TO COMMODE. NO BM AT THIS TIME. FALL PRECATIONS IN PLACE. CALL LIGHT IN REACH. MAY DC TOMORROW IF HOSPITAL BED DELIVERED TO HOME.
[2018-09-18 15:00] VITALS: BP 125/68
[2018-09-18 20:11] VITALS: BP 112/66
--- NOTE | 2018-09-19 03:55 | NUR ---
ASSUMED CARE OF PT AT 1900HRS. PT AOX4 AND CALLS FOR HELP NEEDED. PT REPORTED SOME PAIN AND WAS PARTIALLY RELIEVED WITH PRESCRIBED PAIN MEDS. PT SHOWERED THIS SHIFT. PT WAS ABLE TO GET SOME SLEEP. NO OTHER S/S OF ACUTE DISTRESS. WILL CONTINUE TO MONITOR.
[2018-09-19 04:49] VITALS: BP 138/84
[2018-09-19 07:44] VITALS: BP 132/75
--- NOTE | 2018-09-19 14:50 | NUR ---
ASSUMED CARE 0700. ALERT X 4, CONTINUES TO REQUEST PRN MEDICATION FOR PAIN AND ANXIETY. PAIN IS IN BACK, HIPS, AND LEGS. UP WITH STAND BY ASSIST TO COMMODE. WAITING FOR HOSPITAL BED TO ARRIVE AT HER HOME. FALL PRECAUTIONS REMAIN IN PLACE WITH CALL LIGHT IN REACH.
[2018-09-19 15:55] VITALS: BP 113/63
--- NOTE | 2018-09-19 16:33 | NUR ---
CM GOT SCRIPT FOR HOSP BED SIGNED BY PHYSICIAN AND FAXED IT TO [facility]. CM TO FOLLOW INDICATED EITH DC PLANNING.
[2018-09-19 19:46] VITALS: BP 110/61
[2018-09-20 03:05] VITALS: BP 115/65
--- NOTE | 2018-09-20 04:31 | NUR ---
A/O, calm and pleasant; c/o pain in back,pain medication given and worked; c/o itching in the bottom, cream given and worked. Patient got up to the bed commode with one assist, cooperative; vss, lab reviwed, will keep monitoring.
[2018-09-20] MEDS ORDERED: MORPHINE SULFAT15 M3 PO (07:09)
[2018-09-20] MEDS ORDERED: AMITRIPTYLINE H50 M2 PO (07:09)
[2018-09-20] MEDS ORDERED: HYDROXYZINE HCL25 M1 PO (07:09)
[2018-09-20 07:35] VITALS: BP 111/64
--- NOTE | 2018-09-20 10:34 | NUR ---
WOUND CARE FOLLOW UP; I CONTINUE TO FOLLOW THIS PATIENT FOR COMFORT MEASURES. THE PATIENT REQUESTED LYMPHEDEMA THERAPY WHICH WAS NOT INDICATED. I PLACE HER IN A MILD LEVEL OF COMPRESSION WITH A TUBIGRIP SIZE G. THE PATIENT WAS AGREEABLE TO THIS. RECOMMENDATIONS; I WILL SEE THIS PATIENT M/W/F DURING THIS ADMISSION. RN NOTIFIED
--- NOTE | 2018-09-20 13:15 | NUR ---
patient to dc today to [facility], pickup 5pm, no oxygen, wc van. Viridiana/dk said for patient's to be sure to bring her bipap machine over. DP texted Aggie/jeremiah here at [facility] to let her know to tell . DP will fax dp to facility and call family
--- NOTE | 2018-09-20 15:45 | NUR ---
CM CALLED SANDRA AT [facility] AND LEFT Ellie YE WITH [facility] INDICATED THAT THEY HAD ANTICIAPTED HOSPITAL BED BEING DELIVERED TODAY. [facility] CALLED AND INDICATED THAT THEY HAD AUTH FOR PT TO ADMIT SKILLED TODAY. CM NOTIFIED PHYSICAIN AND SPOKE WITH PT. CM INDICATED THAT PT COULD DC HOME WITH [facility] HH AND HOSPITAL BED TODAY OR GO SKILLED AT [facility] TODAY. PT INDICATED SHE WOULD PREFER TO DC SKILLED TO [facility]. TRANSPORT WAS ARRANGED FOR 1700. PT'S SPOUSE WAS NOTIFIED AND ASKED TO BRING PT'S CPAP TO [facility]. ORDERS HAVE BEEN FAXED. CHART COPY MADE. REPORT TO BE CALLED TO . NO OTHER CM INTERVENTION INDICATED AT THIS TIME. CASE CLOSED.
--- NOTE | 2018-09-20 16:59 | NUR ---
DISCHARGING TO [facility]. REPORT GIVEN TO NURSE AT [facility]. DISCHARGE PACKET WITH SCRIPTS GIVEN TO TRANSPORTATION. ON FALL PRECAUTIONS.
--- NOTE | 2018-09-20 22:25 | NUR ---
[facility] called wanting to know pt diet.
== END 2018-09-20 05:45 | DRG 552 ==
LOC: ER 02:06 → 4W 04:28 → EROBS 04:28 → 4W 05:44
PROVIDERS: Emergency Medicine; ADMIT Family Medicine
DX: M51.36 Other intervertebral disc degeneration, lumbar region (principal); N17.9 Acute kidney failure, unspecified; Z68.44 Body mass index [BMI] 60.0-69.9, adult; M47.9 Spondylosis, unspecified; M06.9 Rheumatoid arthritis, unspecified; K21.9 Gastro-esophageal reflux disease without esophagitis; G89.29 Other chronic pain; M25.559 Pain in unspecified hip; F32.9 Major depressive disorder, single episode, unspecified; F41.9 Anxiety disorder, unspecified; E66.01 Morbid (severe) obesity due to excess calories; D86.9 Sarcoidosis, unspecified; K59.00 Constipation, unspecified; Z90.710 Acquired absence of both cervix and uterus; Z86.14 Personal history of Methicillin resistant Staphylococcus aureus infection; Z88.8 Allergy status to other drugs, medicaments and biological substances; Z87.891 Personal history of nicotine dependence; Z82.49 Family history of ischemic heart disease and other diseases of the circulatory system; Z81.8 Family history of other mental and behavioral disorders; Z80.9 Family history of malignant neoplasm, unspecified; Z79.899 Other long term (current) drug therapy
CPT/HCPCS: 10040

== ENCOUNTER → 2018-11-01 | Outpatient (CLI) | payer BC, OTHER ==
[~2018-11-01] MED LIST changes: +ACETAMINOPHEN325 M1 PO; +ALBUTEROL2.5 MG/31 INH; +BACLOFEN20 MG PO; +HYDROCODONE-ACE15 ML PO; +HYDROXYZINE HCL25 M1 PO; +LYRICA100 MG PO; +MORPHINE SULFAT15 M3 PO; +PROTONIX40 M1 PO; +TYLENOL325 MG PO
[2018-11-01 13:30] LABS: HEMATOCRIT 37.8 % (37.0-47.0); MCH 21.2 pg (26.0-34.0); MCHC 31.7 g/dL (28.0-37.0); RBC 5.65 mil/uL (4.20-5.00); RDW 19.3 % (10.5-14.5); WBC 4.9 thou/uL (4.0-11.0)
[2018-11-01 13:44] LABS: ALBUMIN 3.4 g/dL (3.4-5.0); CALCIUM 9.3 mg/dL (8.5-10.1); CREATININE 1.1 mg/dL (0.6-1.0); POTASSIUM 4.2 mmol/L (3.5-5.1); TOTAL BILIRUBIN 1.4 mg/dL (<0.1-1.0); TOTAL PROTEIN 7.8 g/dL (6.4-8.2)
== END ==
LOC: CV 12:57
PROVIDERS: Surgery
DX: Z01.818 Encounter for other preprocedural examination (principal); J84.89 Other specified interstitial pulmonary diseases; E66.01 Morbid (severe) obesity due to excess calories; Z88.8 Allergy status to other drugs, medicaments and biological substances; Z87.09 Personal history of other diseases of the respiratory system

== ENCOUNTER 2018-11-03 05:40 | Inpatient (IN) | payer BC, OTHER ==
--- NOTE | 2018-11-02 08:09 | EKG ---
[address] [place] [address] ELECTROCARDIOGRAM REPORT Name: MARCMARIALUZ MARINA WATKINS Room #: PRE IN [facility]#: [id number] ������������������ Admission: ������������������ Attend Phys: Malcolm Benz MD, F Discharge: ������������������ Date of : 76 Report #: [id number] ����������������������������������������������������������������� [id number] THIS REPORT FOR: //name// [facility] Test Date: 2018-11-01 Test Time: 14:20:09 Pat Name: UCHE TRAN Department: Room: Gender: F Clinical Product Specialist: Crow SPENCE : 1980 Requested By: Malcolm Benz Order Number: [id number] MD: Vladislav Schmidt Measurements Intervals [place] Rate: 86 P: 40 IL: 235 QRS: 0 QRSD: 109 T: -6 QT: 401 QTc: 480 Interpretive Statements Sinus rhythm Prolonged IL interval Abnormal R-wave progression, early transition Nonspecific T wave abnormality Borderline prolonged QT interval Compared to ECG 06/08/2018 12:30:23 First degree AV block now present T-wave abnormality now present Electronically Signed On 11-02-2018 8:09:50 CDT by Vladislav Schmidt [email or web address] ��������������������������������������������� <ELECTRONICALLY SIGNED> ���������������������������������������� By: Vladislav Schmidt MD, FACC ��������������������������������������������� 11/02/18 0809 1420 1420 Vladislav Schmidt MD, [facility] /EPI
[~2018-11-03] VITALS: Ht 188 cm; Wt 200.5 kg
[~2018-11-03 05:40] MED LIST changes: -HYDROCODONE-ACE15 ML PO
[2018-11-03 10:35] VITALS: BP 132/75
[2018-11-03] MEDS ORDERED: HYDROCODONE-ACE15 ML PO (12:40)
--- NOTE | 2018-11-03 20:09 | NUR ---
PT ARRIVED FROM PACU TO ROOM 420 AT 14:40 S/P LAP SLEEVE SURGERY. STRICT NPO. C/O ABD PAIN, IV PRN AND SCHEDULED PAIN MEDS GIVEN ORDERED. EXPERIENCING NAUSEA WITH DRY HEAVING/EMESIS, MEDS GIVEN ORDERED. 4 LAP SITES INTACT, SOME SEROUSANGIOUS OOZING NOTED, LASHELL. MAINTAINING CONTACT PRECAUTIONS. FAMILY INVOLVED IN CARE AND AT BEDSIDE. VSS. DR. FLOYD AWARE OF PT, WILL SEE TOMORROW.
[2018-11-03 21:04] VITALS: BP 1130/76
--- NOTE | 2018-11-04 05:56 | NUR ---
ASSUMED CARE OF PT @1900 PT A&OX4 WITH C/O ABD PAIN AND N/V, DRY HEAVING NO NAUSEA. COUGHING AND THICK MUCUS NOTED. PAIN MEDS GIVEN FOR MANAGEMENT. USES BEPAN @NIGHT. FLUIDS INFUSING AND PT STILL ON STRICT NPO. POC DONE. WILL CONTINUE TO MONITOR TILL EOS
[2018-11-04 06:23] LABS: ABSOLUTE NEUTROPHILS 5.4 thou/uL (1.4-8.2); HEMOGLOBIN 10.8 gm/dL (12.0-15.0); WBC 7.1 thou/uL (4.0-11.0)
[2018-11-04 06:24] LABS: BASOPHILS 0.3 % (0.0-2.0); HEMATOCRIT 34.3 % (37.0-47.0); LYMPHOCYTES 15.9 % (24.0-44.0); MCH 21.1 pg (26.0-34.0); MCHC 31.4 g/dL (28.0-37.0); MONOCYTES 7.3 % (1.0-8.0); PLATELET COUNT 334 thou/uL (150-400); POLYS 76.5 % (36.0-66.0); RBC 5.12 mil/uL (4.20-5.00)
[2018-11-04 06:27] LABS: POTASSIUM 4.3 mmol/L (3.5-5.1)
[2018-11-04 06:41] VITALS: BP 138/74
[2018-11-04 11:42] VITALS: BP 138/74
--- NOTE | 2018-11-04 14:28 | NUR ---
Nutrition: Received consult for s/p lap sleeve gastrectomy. Pt is dicharging home today. RD met with pt's as pt was sleeping. Spouse verbalizes receiving all nutrition education preoperatively by outpatient RD. RD re-educated on current diet discharge through week 1, only clear liquids, high protein, sugar-free items to prevent dumping syndrome. Spouse appropriately stocked up on Premier protein drinks - approved from supplement list. Discussed how initially stomach can only hold 2-3 oz amounts. Although spouse states having diet instructions from OP dietitian at home, recopied diet instructions and gave prior to d/c.
--- NOTE | 2018-11-05 11:06 | PATH ---
[facility] [address] [address] PATHOLOGY RPT PROC[facility] Room #: 420-P DIS IN M.R.#: [id number] ������������������ Admission: 11/03/18 ������������������ Date of : 76 Discharge: 11/04/18 Report #: [id number] Path Case #: [id number] LCA Accession Number: [id number] . 01 Material submitted: . stomach - LAP SLEEVE GASTERECTOMY . 01 Clinical history: . MO . 02 Diagnosis: Stomach, partial gastrectomy: - Portion of stomach with no significant histopathologic diagnosis. (SKM:pit; 11/04/2018) QTP/11/04/2018 . 02 Electronically signed: . Young William MD, Pathologist NPI- [id number] . 01 Gross description: . The specimen is received in formalin, labeled "Shi, Shonetta, lap sleeve gastrectomy" and consists of a partial gastrectomy specimen closed with a line of jonatan measuring 19.0 cm in length and up to 6.8 cm in diameter. The serosa is pink-isaac and focally hemorrhagic. Opening reveals a pink-isaac mucosa with no nodules or mass lesions. Spray Dyer sections are submitted in A1. (SDY; 11/03/2018) SYU/SYU . 02 Pathologist provided ICD-10: E66.01 . 02 CPT . [id number] Specimen Comment: A courtesy copy of this report has been sent to Specimen Comment: [phone], , . Specimen Comment: Report sent to ,DR FLOYD / DR ZAVALETA Performed at: [address], [place] [id number] MD Jhonathan Rawls MD Phone: [phone] Performed at: [address] [id number] MD Mary Anne Bueno MD Phone: [phone]
[2018-11-05] MEDS ORDERED: MS CONTIN 60 MG60 M1 PO (20:29)
[2018-11-05] MEDS ORDERED: NEURONTIN 300300 M1 PO (20:31)
== END 2018-11-04 15:15 | disposition home or self-care (01) | DRG 621 ==
LOC: TBA 05:40 → 4E 05:40 → OR 11:36 → 4E 14:42 → EDSTATUS 15:48 → PRE 16:54 → ENTRNSPT 11-04 13:55 → EDTRNSPTSTS 11-04 14:32 → 4E 11-04 15:15
PROVIDERS: ADMIT Surgery
PROC: 0DB64Z3 Excision of Stomach, Percutaneous Endoscopic Approach, Vertical (ICD-10-PCS; principal; 2018-11-03)
DX: E66.01 Morbid (severe) obesity due to excess calories (principal); G47.33 Obstructive sleep apnea (adult) (pediatric); D86.0 Sarcoidosis of lung; I10 Essential (primary) hypertension; G89.29 Other chronic pain; M54.9 Dorsalgia, unspecified; Z79.899 Other long term (current) drug therapy; Z68.43 Body mass index [BMI] 50.0-59.9, adult; Z86.14 Personal history of Methicillin resistant Staphylococcus aureus infection
CPT/HCPCS: 10783; 50010; 50101; 50222; 50249; 50386; 50555; 50739; 50740; 50962; 51436; 51437; 52182; 52265; 53307; 53311; 54022; 54118; 56462; 56525; 56526; 57092; 62110; 62900; 65020; 65131; 70005

== ENCOUNTER 2018-11-05 14:16 | Inpatient (IN) | payer BC, OTHER ==
[~2018-11-05] VITALS: Ht 188 cm; Wt 197.3 kg
[2018-11-05 14:16] VITALS: BP 179/107
[~2018-11-05 14:16] MED LIST changes: +HYDROCODONE-ACE15 ML PO
[2018-11-05 15:24] LABS: HEMATOCRIT 34.1 % (37.0-47.0); HEMOGLOBIN 10.7 gm/dL (12.0-15.0); MCHC 31.5 g/dL (28.0-37.0); MCV 66.9 fL (80.0-100.0); PLATELET COUNT 344 thou/uL (150-400); RBC 5.09 mil/uL (4.20-5.00); RDW 19.9 % (10.5-14.5); WBC 4.1 thou/uL (4.0-11.0)
[2018-11-05 15:32] LABS: CALCIUM 9.1 mg/dL (8.5-10.1); CREATININE 1.2 mg/dL (0.6-1.0); POTASSIUM 3.7 mmol/L (3.5-5.1)
[2018-11-05 15:38] LABS: TOTAL BILIRUBIN 1.1 mg/dL (<0.1-1.0); TOTAL PROTEIN 7.3 g/dL (6.4-8.2)
[2018-11-05 16:00] LABS: ANISOCYTOSIS 2+; HYPOCHROMASIA 2+; MICROCYTES 2+
[2018-11-05 17:21] VITALS: BP 151/106
[2018-11-05 18:03] VITALS: BP 164/95
--- NOTE | 2018-11-05 19:20 | NUR ---
ASSUMED CARE OF PATIENT APPROX. 1814. PATIENT A&OX4, VSS. PATIENT HAS C/O OF ABD. PAIN AND NAUSEA. FLUIDS HUNG ORDERED. WILL CONTINUE TO MONITOR.
[2018-11-05 20:04] VITALS: BP 149/83
[2018-11-05] MEDS ORDERED: MS CONTIN 60 MG60 M1 PO (20:29)
[2018-11-05] MEDS ORDERED: NEURONTIN 300300 M1 PO (20:31)
[2018-11-06 03:07] VITALS: BP 140/85
--- NOTE | 2018-11-06 06:25 | NUR ---
ASSUMED CARE OF PT AT 1900HRS. PT IS AOX4 AND LETS NEEDS BE KNOWN. PT COMPLAINED ABOUT NAUSEA AND ABD PAIN THAT WAS NOT WELL MANAGED WITH PRN MEDICATION. CONSIDER ALTERNATIVE RELIEF OPTIONS. PT HAD RECENT SURGERY AND LAP SITES X5 ARE INTACT. VITAL SIGNS ARE STABLE. DR. FLOYD WAS NOTIFIED. WILL CONTINUE TO MONITOR PT.
[2018-11-06 08:17] VITALS: BP 147/89
[2018-11-06 14:55] VITALS: BP 152/100
--- NOTE | 2018-11-06 17:37 | NUR ---
VERY ANXIOUS ABOUT WHEN PAIN MEDS ARE DUE AND NAUSEA MEDS ARE DUE. ENCOURAGED TO WALK - AMBULATED APPROX 50 FEET X3 WITH MUCH ENCOURAGEMENT. POOR APPETITE FOR CLEAR LIQUIDS. IV RIGHT AC. REMAINS IN ISOLATION FOR HX OF MRSA. INCONTINENT OF MODERATE AMOUT LIQUID STOOL.
[2018-11-06 19:47] VITALS: BP 188/71
--- NOTE | 2018-11-07 02:01 | NUR ---
ASSUMED CARE OF PT AT 1900HRS. PT IS A0X4 AND LETS NEEDS BE KNOWN. PT HAD A LOOSE INCT BM THIS SHIFT. PT TOOK A SHOWER THIS SHIFT. MOVEMENT WAS ENCOURAFED. PT COMPLAINED OF PAIN AND NAUSEA. PT WAS ABLE TO GET COMFORTABLE WITH PRN MEDS. NO S/S OF ACUTE DISTRESS. WILL CONTINUE TO MONITOR
[2018-11-07 08:00] VITALS: BP 168/98
--- NOTE | 2018-11-07 12:07 | NUR ---
Assumed pt care at 7am.Pt in bed sleeping on and off.Assessment completed.vss. C/o nausea and abdominal pain.Meds given as ordered with relief.Dr Holley here,order noted.Pt has several needs and sometimes moaning even she just got pain or relaxer.Pt on clear liq but has protein shake at bs.Will continue to monitor.
[2018-11-07 15:00] VITALS: BP 144/77
--- NOTE | 2018-11-07 16:32 | NUR ---
received voice message from daphney with [facility], rt [facility] chatter[facility]. " spoke with her on phone and she has many needs and wants so would like to discuss this with cm. # [phone] ext [phone]"/daphney. cm called [facility] [place] back and left message wit scarlett shelley. will cont following as needed for dc needs.
[2018-11-07 20:37] VITALS: BP 150/88
--- NOTE | 2018-11-08 02:56 | NUR ---
ASSUMED CARE OF PT AT 1900HRS. PT IS AOX4 AND LETS NEEDS BE KNOWN . PT REPORTED NAUSEA AND PAIN, AND WAS TREATED. PT WAS COMFORTABLE AND SLEPT PART OF THE SHIFT. NO OTHER S/S OF ACUTE DISTRESS. WILL CONTINUE TO MONITOR.
--- NOTE | 2018-11-08 08:52 | NUR ---
PT IS FAMILIAR TO CM FROM PREVIOUS VISITS. PT ADMITTED RELATED TO GASTRIC SLEEVE. PT RESIDES IN A HOUSE WITH HER SPOUSE AND DTR. PT HAD A HOSPITAL BED ORDERED UPON LAST ADMISSION. PT HAD A FWW. 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 PT HAD HH IN THE PAST. CM TO CONFIRM PREVIOUS PROVIDER AND ASSESS DISCHARGE NEEDS. CM TO FOLLOW INDICATED WITH DC PLANNING.
[2018-11-08 09:02] VITALS: BP 187/109
--- NOTE | 2018-11-08 10:38 | NUR ---
WOUND CARE CONSULT; CONSULT COMPLETED IDENTIFIED HEALED AREAS OF THE ABDOMEN RE; GASTRIC SLEEVE PLACEMENT. SITES SEEM TO BE HEALED, NO DRAINAGE. BILATERAL LE HAS CIRCULAR WOUNDS OF AN UK[place]OWN ETIOLOGY AT VARIOUS STAGES OF HEALING. RECOMMENDATION; CLEANSE THESE AREAS DAILY WITH SOAP AND WATER. REQUEST A ANTIBIOIC OINTMENT FROM THE PCP. I WILL FOLLOW THIS PATIENT EVERY OTHER DAY. DISCUSSED WITH CT
[2018-11-08 20:20] VITALS: BP 154/90
--- NOTE | 2018-11-08 20:54 | NUR ---
PT A&OX4, VSS, PAIN IN ABDOMEN. PAIN MANAGED WITH MEDICATION AND REPOSITIONING. PATIENT HAS C/O OF CONSTANT NAUSEA NO VOMITING. PATIENT PREFERS REGLAN AND ATIVAN TO MANAGE NAUSEA. FLUIDS RAN ORDERED. WILL CONTINUE TO MONITOR.
--- NOTE | 2018-11-09 04:18 | NUR ---
ASSUMED CARE AROUND 1900. AXOX4. PERSISTENT PAIN AND NAUSEA AND ANXITY. MEDICATED PER MD ORDER. KEPT ON ISO. NO S/S ACUTE DISTRESS NOTED OR REPORTED AT THIS TIME. WILL CONT TO MONITOR FOR ANY CHANGES IN CONDITION.
[2018-11-09 07:34] VITALS: BP 151/96
[2018-11-09] MEDS ORDERED: REGLAN 5 MG TAB5 MG PO (11:39)
[2018-11-09] MEDS ORDERED: LORAZEPAM 1 MG T1 M1 PO (11:39)
[2018-11-09 11:44] VITALS: BP 151/96
--- NOTE | 2018-11-09 11:48 | NUR ---
DC PT IS FOR DC. PT/OT WORK WITH HER. P HAS NO IV ACCESS ON SHIFT REPORT. DC PAKET AND MED SRIPTS GIVEN.
--- NOTE | 2018-11-09 12:18 | NUR ---
0700: REPORT REEC FROM NOC SHIFT, CARE ASSUMED. 0815: RESTING WITH EYES CLOSED, AWAKENS READILY TO VERBAL STIMULI, DENIES PAIN, REASSESSMENT COMPLETED. LLE POSTERIOR WOUNDS NOTED WITH SCANT AMT OF BROWNISH DRNG, FIRM EDEMA NOTED TO BILAT LLE. CONTACT ISOLATION IN PLACE FOR (+) MRSA TO WOUNDS ON POSTERIOR LLE. VS STABLE, NO ACUTE STRESS NOTED.
--- NOTE | 2018-11-09 14:06 | NUR ---
DISCHARGE PLANNING. PATIENT DISCHARGING TO HOME. HOME HEALTH RECOMMENDED AT DISCHARGE. [facility] UNABLE TO PROVIDE SERVICE FOR PATIENT AT THIS TIME. REFERRAL FAXED TO [facility]. CALL PLACED TO [facility], TO NOTIFY OF REFERRAL. [facility] TO REVIEW AND NOTIFY CM. AWAITING RESPONSE. FOLLOWING.
--- NOTE | 2018-11-09 15:48 | NUR ---
CARE TEAM INDICATED THAT PT IS MEDICALLY STABLE TO DC HOME THIS DAY. CM NOTIFIED [facility] AND THEY INDICATED THEY AREN'T ABLE TO ACCEPT PT BACK. REFERRAL WAS SENT TO [facility] FOR REVIEW FOR POSSIBLE ADMISSION. CM AWAITING RESPONSE. NO OTHER CM INTERVENTION INDICATED. CASE CLOSED.
== END 2018-11-09 14:00 | disposition home or self-care (01) | DRG 392 ==
LOC: ER 14:16 → 4W 16:52 → EROBS 16:52 → 4W 18:09
PROVIDERS: Emergency Medicine; ADMIT Family Medicine
DX: K91.0 Vomiting following gastrointestinal surgery (principal); Z68.43 Body mass index [BMI] 50.0-59.9, adult; M06.9 Rheumatoid arthritis, unspecified; K21.9 Gastro-esophageal reflux disease without esophagitis; F32.9 Major depressive disorder, single episode, unspecified; F41.9 Anxiety disorder, unspecified; G89.29 Other chronic pain; M25.559 Pain in unspecified hip; J45.909 Unspecified asthma, uncomplicated; D86.9 Sarcoidosis, unspecified; E66.01 Morbid (severe) obesity due to excess calories; Z98.84 Bariatric surgery status; Z90.710 Acquired absence of both cervix and uterus; Z86.14 Personal history of Methicillin resistant Staphylococcus aureus infection; Z79.1 Long term (current) use of non-steroidal anti-inflammatories (NSAID); Z79.51 Long term (current) use of inhaled steroids; Z79.899 Other long term (current) drug therapy; Z88.8 Allergy status to other drugs, medicaments and biological substances; Z87.891 Personal history of nicotine dependence
CPT/HCPCS: 10040

== ENCOUNTER 2018-11-13 07:42 | Inpatient (IN) | payer BC, OTHER ==
[~2018-11-13] VITALS: Ht 188 cm; Wt 191.4 kg
[~2018-11-13 07:42] MED LIST changes: +LORAZEPAM 1 MG T1 M1 PO; +REGLAN 5 MG TAB5 MG PO
--- NOTE | 2018-11-13 08:01 | NUR ---
LAB CALLED FOR BLOOD DRAW, SPOKE WITH ALKA, STATES "WE WILL COME DOWN AND TRY."
[2018-11-13 08:28] LABS: HEMATOCRIT 36.8 % (37.0-47.0); HEMOGLOBIN 11.7 gm/dL (12.0-15.0); MCH 21.2 pg (26.0-34.0); MCHC 31.8 g/dL (28.0-37.0); MCV 66.8 fL (80.0-100.0); PLATELET COUNT 332 thou/uL (150-400); RDW 21.2 % (10.5-14.5); WBC 4.8 thou/uL (4.0-11.0)
[2018-11-13 08:42] LABS: ABSOLUTE NEUTROPHILS 2.6 thou/uL (1.4-8.2); ALBUMIN 3.2 g/dL (3.4-5.0); CALCIUM 9.2 mg/dL (8.5-10.1); CREATININE 1.1 mg/dL (0.6-1.0); PLATELET ESTIMATE NORMAL; TOTAL BILIRUBIN 1.8 mg/dL (<0.1-1.0); TOTAL PROTEIN 7.5 g/dL (6.4-8.2)
[2018-11-13 08:43] LABS: ANISOCYTOSIS SLIGHT; MICROCYTES 1+
[2018-11-13 08:45] LABS: POTASSIUM 2.9 mmol/L (3.5-5.1)
[2018-11-13 11:09] LABS: URINE BILIRUBIN NEGATIVE (Negative); URINE BLOOD TRACE (Negative); URINE CLARITY SL CLOUDY; URINE COLOR YELLOW; URINE GLUCOSE-RANDOM* NEGATIVE (Negative); URINE KETONES 1+ (Negative); URINE LEUKOCYTES-REFLEX 3+ (Negative); URINE NITRITE-REFLEX POSITIVE (Negative); URINE PROTEIN (DIPSTICK) NEGATIVE (Negative); URINE UROBILINOGEN 0.2 E.U./dl (0.2-1.0)
[2018-11-13 11:15] LABS: CASTS None Seen /LPF (None Seen); SQUAMOUS 0-3 Few /LPF (0-3)
[2018-11-13 11:16] LABS: BACTERIA-REFLEX >30 Many /HPF (None Seen); CRYSTALS None Seen /LPF (None Seen); URINE RBC None Seen /HPF (0-2)
--- NOTE | 2018-11-13 11:19 | NUR ---
VASCULAR ACCESS CONSULTED FOR PICC LINE, PT'S LABS,MEDS,HISTORY,ORDER AND CONSENT VERIFIED. DISCUSSED BENEFITS AND RISK OF PICC WITH PT,VERBALIZED UNDERSTANDING. ATTEMPTED JAISON CEPHALIC UNABLE TO PASS GUIDEWIRE. JAISON BASILIC WAS 3CM DEEP BUT WIDELY PATENT WITH USG. 55CM DL POWER PICC INSERTED TO 0CM PER HOSPITAL P&P. PT TOLERATED WELL. STAT CXR CONFIRMED CAJ. PICC RELEASED FOR IMMEDIATE USE TO RIVAS FOFANA PER PROTOCOL.
[2018-11-13] MEDS ORDERED: ROBAXIN 750 MG750 MG PO (11:57)
[2018-11-13 13:30] VITALS: BP 148/100
[2018-11-13 13:57] VITALS: BP 161/99
[2018-11-13 14:18] VITALS: BP 164/106
[2018-11-13 15:58] VITALS: BP 152/91
--- NOTE | 2018-11-13 19:22 | NUR ---
PT ARRIVED ON UNIT FROM ER THIS AFTERNOON. ADMISSION HX, ASSESSMENT AND EDUCATION COMPLETE. PT C/O UNCONTROLLED PAIN, SHIVERING, NAUSEA. PT GIVEN PAIN MED HOWEVER LATER SHE BECAME EXTREMELY TEARFUL AND AGITATED. DISCUSSED WITH PHYSICIAN AND RELATED PT'S COMPLAINTS. ORDERS IMPLEMENTED. PT SLEEPING.
[2018-11-13 19:32] VITALS: BP 157/88
[2018-11-14 00:07] VITALS: BP 102/60
--- NOTE | 2018-11-14 02:49 | NUR ---
CARE ASSUMED AT 1900, PATIENT WAS IN BED ASLEEP. PATIENT HAD GASTRIC SLEEVE DONE 9 DAYS AGO, PATIENT ADMITTED FOR N/V AND SEVERE GENERALIZED PAIN.PATIENT WOKE UP AT AROUND 1930 SAYING NEEDS PAIN MEDS. PATIENT HAD TEMP OF 100.4, AND SEVERE PAIN AND NAUSEA. CALLED CEO NA NEW ORDER OF SUPPOSITORY PHENEGARN AND TYLENOL. AND RECHECK POTTASSIUM IN 1 HOUR. PATIENT REQUESTED SLOW INFUSION OF POTTASSIUM, POTTASIUM DONE AT 0100, BLOOD DRAWN AT 0200. POTTASSIUM IS 3.3L AT THIS TIME, FIRST BAG INFUSING. CALLED DR. HUANG FOR CONSULT AND SEVERE PAIN NEW ORDER TO CHANGE FENTAYL 50 MCG Q 2HOUR, D5 1/2 NS WITH 20 K AT 125ML/HR. LORTAB LIQUID. PATIENT CONTINUED TO SAY SHE CANT SWALLOW AND CANNOT TOLERATE PO MEDS. PATIENT TOOK HS, NO NAUSEA OR VOMIT NOTICIED. PATIENT HAS SCABS ON BLE D/T DX. SARCOIDOSIS. ANXIETY NOTICED AROUND MIDNIGHT, PRN ATIVAN GIVEN PER DR. LÓPEZ. PATIENT EDUCATED NOT TO TAKE CARBONATED DRINKS AND CAFFEINE PER DR. LÓPEZ, STEFANI REQUESTED TEA, PATIENT EDUCATED TO DRINK WATER AFTER TAKING TEA. PAIN CONTROLLED THIS SHIFT.CALLED [facility] FOR BED EXTENSION.PATIENT IN BED ASLEEP AT THIS TIME BREATHING REGULAR AND UNLABOURED.
[2018-11-14 07:46] LABS: HEMATOCRIT 33.9 % (37.0-47.0); HEMOGLOBIN 10.8 gm/dL (12.0-15.0); MCH 21.2 pg (26.0-34.0); MCHC 31.8 g/dL (28.0-37.0); MCV 66.6 fL (80.0-100.0); RBC 5.09 mil/uL (4.20-5.00); RDW 21.5 % (10.5-14.5); WBC 4.1 thou/uL (4.0-11.0)
[2018-11-14 07:54] LABS: CALCIUM 8.7 mg/dL (8.5-10.1); CREATININE 0.9 mg/dL (0.6-1.0); POTASSIUM 3.3 mmol/L (3.5-5.1)
[2018-11-14 08:59] VITALS: BP 149/82
--- NOTE | 2018-11-14 14:38 | NUR ---
chart review, pt on contact isolation precaution pt stated " ok"/pt to calling and knocking on here door. cm intro to discharge before could finishing sentence she opened her eye and stated " not going any where or home till they figure this out. re- intro to cm , dcp, anticipation of needs if any. " live with , and children. need help for me at home. use cane and waker. have hospital bed. hh in past"/corrie. noted in [place] pt had [facility] and wouldn't take her back and [facility] in past as well. noted pt closing eyes in middle of sentence. no co during visit. bedside nurse in room at end of visit. will cont following as needed for dc needs.
[2018-11-14 16:40] LABS: POTASSIUM 3.5 mmol/L (3.5-5.1)
--- NOTE | 2018-11-14 20:28 | NUR ---
PT A&OX4, VSS, PAIN IN ABDOMEN AND BOTH HIPS. PATIENT STATES HER PAIN IS NON STOP, FENTAYL GIVEN Q2 HOURS. PATIENT STATES HER NAUSEA REMAINS UNCONTROLED AND ANTINAUSEA GIVEN ORDERED OFTEN POSSIBLE. PATIENT DIET ADVANCED TO FULL LIQUIDS AND PATIENT HAS HAD DIARRHEA AFTER EATING EACH MEAL. KEEPING PATIENT COMFORTABLE POSSIBLE. DENIES CHEST PAIN AND SOA. WILL CONTINUE TO MONITOR.
--- NOTE | 2018-11-15 02:05 | NUR ---
PATIENT AOX4 MAKEWS NEEDS KNOWN. PAIN AND NAUSEA CONTROLLED THIS SHIFT. PATIENT HAD ANXIETY THIS SHIFT, PRN ATIVAN GIVEN PER DR. ORDER. PATIENT REQUESTED VOLTAAREN GEL FOR BOTH HIPS AND LOWER BACK, CALLED SUBGRADE TESTER, NEW ORDER GIVEN BID PRN . PATIENT INCONTINT HTIS SHIFT, PERICARE AND BARRIER CREAM APPLIED NEEDED. FALL PRECAUTION IN PLACE. PPATIENT IN BED ASLEEP AT THIS TIME BREATHING REGULAR AND UNLABOURED.
[2018-11-15 08:00] VITALS: BP 145/93
[2018-11-15 15:00] VITALS: BP 130/89
--- NOTE | 2018-11-15 15:14 | NUR ---
CARE TEAM INDICATED THAT PT WILL NEED TPN UPON ANTICPATED DC HOME TOMORROW. CM SPOKE WITH PT AND SHE INDICATED NO PREFERENCE FOR PROVIDERS. CM SENT REFERRAL TO [facility]. CM AWAITING RESPONSE AND BENEFIT COVERAGE. CM TO FOLLOW INDICATED WITH DC PLANNING.
[2018-11-15 18:26] VITALS: BP 130/89
--- NOTE | 2018-11-15 18:50 | NUR ---
AAOX4. FUSSY AND C/O PAIN AND NAUSEA EVERYTIME ASKED. AMBULATES IN ROOM - LITTLE POSSIBLE. USES BEDSIDE COMMODE TO VOID, ENCOURAGED TO USE BATHROOM SINCE SHE MAY BE GOING HOME TOMORROW. POOR APPETITE FOR MEALS. HAD 3 SMALL LIQUID BM'S SPECIMENT SENT TO THE LAB. REPORTS FEELING LIKE SHE CANNOT FORM HER WORDS, NOTIFIED DR. GOOD ORDER OBTAINED TO STOP REGLAN.
[2018-11-15 20:42] VITALS: BP 165/114
--- NOTE | 2018-11-16 00:31 | NUR ---
ASSUMED CARE OF PT AT 1900HRS. PT AOX4 AND LETS NEEDS BE KNOWN. PT REPORTED SEVRE PAIN AND NAUSEA FREQUENTLY AND WAS TREATED WITH PRN MEDS. PT WAS ABLE TO GET COMFORTABLE AND SLEEP PART OF THE SHIFT. NO S/S OF ACUTE DISTRESS. WILL CONTINUE TO MONITOR.
[2018-11-16 07:50] VITALS: BP 139/83
--- NOTE | 2018-11-16 12:18 | NUR ---
Received awake on bed. Due medications given as prescribed- able to swallow meds. With PICC line at R Upper arm- patent and flushing well, With ongoing IVF D51/2NS + 20meq KCL ongoing + TPN. Assited in ADLs. Complained of pain, due PRN pain medications given as prescribed. Vital signs stable. A+Ox4. On room air. Maintained on isolation- with history of MRSA. With orders for repeat labs thru PICC line draw- charge nurse took bloods and sent to lab; Lab called back and with critical value for glucose result, to repeat line draw, told laboratory staff that pt has ongoing D5 IVF and TPN, fluids put on standby and to repeat line draw after 1 hour.
--- NOTE | 2018-11-16 12:35 | NUR ---
Nutrition: If pt remains unable to tolerate po (except water) and if TPN indicated to continue to provide means of adequate nutrition, recommend goal rate of 80 ml/hr to adequately meet ~100% energy needs (estimated at 1920 kcals per 10 kcals/kg CBW or 25 kcals/kg IBW) and 100% protein needs (estimated at 90-100 g/day).
[2018-11-16 13:45] VITALS: BP 150/86
[2018-11-16 14:34] LABS: CALCIUM 8.9 mg/dL (8.5-10.1); CREATININE 0.9 mg/dL (0.6-1.0); MAGNESIUM 1.9 mg/dL (1.8-2.4); PHOSPHORUS 3.9 mg/dL (2.5-4.9); POTASSIUM 3.4 mmol/L (3.5-5.1)
--- NOTE | 2018-11-16 15:48 | NUR ---
DISCHARGE PLANNING. ANTICIPATED DISCHARGE PLANNED FOR TOMORROW. POST ACUTE RECOMMENDED AT DISCHARGE. REFERRAL FAXED TO [facility] FOR POST ACUTE NEED, PER PATIENT REQUEST. CALL PLACED TO AMY TO NOTIFY. AMY TO REVIEW AND CONTACT ONCE REVIEW COMPLETE. FOLLOWING.
--- NOTE | 2018-11-16 16:11 | NUR ---
CM [facility] BACK FROM [facility] AND THEY INDICATED THAT PT'S SECONDARY MEDICARE DOESN'T COVER TPN EITHER. IF PT WERE TO HAVE IT UPON DC SHE WOULD HAVE TO PAY $110 PER DAY OUT OF POCKET. CM NOTIFIED PHYSICAIN AND PT AND PT INDICATED SHE WAS INTERESTED IN SEEING IF SHE COULD GO FOR POST ACUTE CARE STAY. PT ASKED THAT REFERRAL BE SENT TO [facility] FOR REVIEW FOR POSSIBLE ADMISSION. CM TO FOLLOW INDICATED WITH DC PLANNING.
[2018-11-16 20:09] VITALS: BP 157/66
[2018-11-16 21:21] VITALS: BP 158/90
[2018-11-17 05:35] LABS: ALBUMIN 2.7 g/dL (3.4-5.0); CALCIUM 8.6 mg/dL (8.5-10.1); MAGNESIUM 1.7 mg/dL (1.8-2.4); PHOSPHORUS 3.2 mg/dL (2.5-4.9); POTASSIUM 3.5 mmol/L (3.5-5.1); TOTAL BILIRUBIN 1.1 mg/dL (<0.1-1.0); TOTAL PROTEIN 6.7 g/dL (6.4-8.2)
--- NOTE | 2018-11-17 05:53 | NUR ---
Assumed pt care at 1900. Pt A/OX4.VSS.C/o pain to abd,back and hips medicated per EMAR with partial relief reported. Pt started on TPN,reported feeling weird TPN stopped for 5 minutes VS WNL.Pt had been medicated for nausea prior to start,restarted and pt has had no further complaints .PICC patent on RUE and TPN infusing w/o problems. Fall precautions in place.
[2018-11-17 08:06] VITALS: BP 127/66
--- NOTE | 2018-11-17 14:11 | NUR ---
AWAITING [facility] TO DO AN ONSITE VISIT AND DETERMINE IF THEY WILL ACCEPT PT AND SUBMIT FOR AUTH. CM TO FOLLOW INDICATED WITH DC PLANNING.
[2018-11-17 14:39] VITALS: BP 155/108
[2018-11-17 17:13] VITALS: BP 136/79
--- NOTE | 2018-11-17 17:30 | NUR ---
ASSUMED CARE OF PT AT APPROX 0700. PT IS ALERT AND ORIENTED X4, VSS, ABLE TO MAINTAINS 0-2 SAT >90. DENIES SOA. EVEN NON LABORED BREATHING. PT COMPLAINS OF PAIN THAT IS NOT MANAGED BY PRN PAIN MEDICATIONS. PT DOES NOT APPEAR TO BE IN PAIN UNTIL PT IS AWARE THAT STAFF IS IN THE ROOM. SINCE PATIENT WAS CALLING SO MIRTA CALVERT BEFORE TIME FOR PRN MEDS I INFORMED PT THAT I WAS GOING TO CALL THE DR TO SEE IF WE CAN GET CHANGES MADE OR NEW ORDERS. PT ASKED FOR [employer] OFFICER WHEN CALLED OUT. PT WILL NOT TAKE PO PAIN MEDICATIONS BUT DOES TOLERATE OTHER PO MEDICATION. WHEN MENTIONED TO PATIENT THAT SHE SHOULD TRY THE PO PAIN MEDICATION SINCE SHE TOLERATED OTHER PO MEDICATIONS SHE BEGAN TO SAY THAT SHE WAS TOO NAUSEAS FOR AFTERNOON SCHEDULED PO MEDICATION. PT REQUESTED TO BE MOVED TO OTHER UNIT. REPORT WAS CALLED AND PATIENT WAS TRANSFERRED.
--- NOTE | 2018-11-17 19:51 | NUR ---
Pt came to unit approx 1715. C/o pain in hips, abd, and abdomen. Pt upset from unit she was transfered from. Therapeutic communication used. Report given to kenny FOFANA.
[2018-11-17 20:00] VITALS: BP 133/80
--- NOTE | 2018-11-17 20:49 | NUR ---
ASSUMED CARE OF PT AT 1900. PT RESTING IN BED WITH AT BEDSIDE. PT REQUESTED FOOD. BROUGHT HER A CHEESE SOUP WHICH AND SHE IS CURRENTLY TOLERATING WELL. PT REQUESTED FOR PAIN MED FOR A PAIN LEVEL OF 9/10. EDUCATION WAS DONE ABOUT PAIN AND NON-PHARMACOLOGICAL WAYS TO CONTROL HER PAIN. PT REQUESTED A HEATING PAD. PT AND I AGREED THAT SHE WILL GET HER PAIN MED AT 2145. TPN WAS HUNG AND IS CURRENTLY RUNNING. PT IS CONTENT AT THE MOMENT. CALL MERA WITHIN REACH. WILL CONTINUE TO MONITOR
[2018-11-18 04:18] VITALS: BP 116/76
[2018-11-18 06:35] LABS: ALBUMIN 2.5 g/dL (3.4-5.0); CALCIUM 8.5 mg/dL (8.5-10.1); CREATININE 0.9 mg/dL (0.6-1.0); MAGNESIUM 1.8 mg/dL (1.8-2.4); PHOSPHORUS 3.9 mg/dL (2.5-4.9); POTASSIUM 3.8 mmol/L (3.5-5.1); TOTAL BILIRUBIN 0.8 mg/dL (<0.1-1.0); TOTAL PROTEIN 6.4 g/dL (6.4-8.2)
[2018-11-18 08:02] VITALS: BP 135/84
--- NOTE | 2018-11-18 11:20 | NUR ---
PATIENT CARE WAS ASSUMED AT 0715.PATIENT IS ALERT AND ORIENTED X4.PATIENT WILL CALL FOR ASSISTANCE TO GET UP OUT OF BED.PATIENT HAS PICC LINE ON RIGHT UPPER ARM, WITH TPN INFUSING.PATIENT HAS COMPLAINS OF PAIN, AND NAUSEA, AND HAS REQUESTED TO HAVE PAIN MEDS, SOMETHING FOR NAUSEA, AND HER ANXIETY MEDICATIONS IN THE AM.MEDS WERE GIVEN WHEN THEY WERE AVAILABLE.PT DOESN'T WANT TO TAKE HER MORNING MEDS RIGHT NOW WILL BRING BACK LATER.PT HAS CALL LIGHT,PHONE, AND PERSONAL BELONGINGS WITHIN REACH.
--- NOTE | 2018-11-18 12:09 | NUR ---
Agree with nocturnal tpn ordered by pharmacy
--- NOTE | 2018-11-18 15:38 | NUR ---
UPDATED LABS AND TPN FORMULA SENT TO [facility]. CARE TEAM ARE STILL DOING LABS TO FINIALIZE TPN FORMULA. WE ARE ALSO STILL AWAITING AUTH. SHOULD PT BE READY OVER THE WEEKEND OR SHOULD [facility] GET AUTH CONTACT ADMISSIONS AT TO INQUIRE ABOUT DC ARRANGEMENTS.
[2018-11-18 15:52] VITALS: BP 142/94
[2018-11-18 20:49] VITALS: BP 136/80
--- NOTE | 2018-11-19 | NUR ---
ASSUMED CARE OF PT AT 1900. PT C/O OF PAIN, WAS MEDICATED. PT IS A+OX4. BOTH CONT AND INCONT. OF URINE. TPN CURRENTLY RUNNING ON RIGHT UPPER ARM PICC. GETS UP WITH 1 ASSIST AND A WALKER. SCDS APPLIED. CALL MERA WITHIN REACH
[2018-11-19 05:00] LABS: MAGNESIUM 2.1 mg/dL (1.8-2.4); PHOSPHORUS 3.8 mg/dL (2.5-4.9); POTASSIUM 4.1 mmol/L (3.5-5.1)
[2018-11-19 05:29] VITALS: BP 125/75
[2018-11-19 08:15] VITALS: BP 137/86
[2018-11-19 14:41] VITALS: BP 140/87
--- NOTE | 2018-11-19 18:14 | NUR ---
ASSUMED CARE OF PT AT 0700. ASSESSMENT CHARTED. A&O,X4. C/O NAUSEA AND NOT BEING ABLE TO KEEP ANYTHING DOWN, ANTINAUSEA MEDS GIVEN ORDERED. C/O CHRONIC PAIN AND ACUTE STOMACH PAIN -12/20, PAIN MEDS GIVEN ORDERED. PT UP IN CHAIR THIS AM, SLEPT IN BED THIS AFTERNOON. VSS. CONTINUING NUTRITION VIA TPN OVERNIGHT. PLAN TO D/C TO SNF, WAITING FOR INSURANCE AUTH. WILL CONTINUE TO MONITOR UNTIL EOS.
[2018-11-19 19:43] VITALS: BP 136/79
[2018-11-20 05:13] VITALS: BP 121/70
[2018-11-20 07:07] LABS: CALCIUM 8.6 mg/dL (8.5-10.1); MAGNESIUM 1.9 mg/dL (1.8-2.4); PHOSPHORUS 4.1 mg/dL (2.5-4.9)
[2018-11-20 07:35] VITALS: BP 120/77
--- NOTE | 2018-11-20 08:14 | NUR ---
ASSESSMENTS CHARTED. C/O PAIN AND NAUSEOUS THROUGHOUT SHIFT. PLAN TO GO TO [place]AY ON WEDNESDAY AT [facility] [place], [place]. TPN RUNNING AT NIGHT. FALL PRECAUTIONS IN PLACE.
[2018-11-20 19:34] VITALS: BP 134/81
--- NOTE | 2018-11-21 05:05 | NUR ---
ASSUMED PT CARE 1899. REASSESSMENT COMPLETE. VSS. IV DRESSING C/D/I. REPORTS PAIN, SEE EMAR. REPORTS NAUSEA, SEE EMAR. TPN RUNNING PER ORDER. WORKING TOWARD POC. CALL LIGHT AND PERSONAL BELONGINGS WITHIN REACH. WILL CONTINUE POC UNTIL EOS.
[2018-11-21] MEDS ORDERED: VOLTAREN GEL 1100 G1 TOP (07:57)
[2018-11-21 08:31] VITALS: BP 122/73
--- NOTE | 2018-11-21 10:11 | NUR ---
FAXED CLINICAL UPDATE INCLUDING DIETARY NOTES TO [facility] SPOKE WITH AMY IN ADM SHE RECEIVED UPDATE AND WILL SUBMIT FO AUTH. DCP TO FOLLOW.
--- NOTE | 2018-11-21 13:01 | NUR ---
WOUND CARE FOLLOW UP; WOUNDS TO THE ABDOMEN AND LE'S BILATERALLY ARE HEALED AT THIS TIME. THE RIGHT LOWER BUTTOCK FRICTION TEAR IS FRAGIALLY HEALED. RECOMMENDATION; CONTINUE WITH A SMALL BOAREDED FOAM, M/W/F PRN DISCUSSED WITH CT
[2018-11-21 19:44] VITALS: BP 133/99
[2018-11-22 04:12] VITALS: BP 124/72
--- NOTE | 2018-11-22 05:03 | NUR ---
ASSUMED CARE OF PT @1900 PT ASSESSED AT START OF SHIFT A&OX4 WITH C/O PAIN AND NAUSEA. MEDICATION GIVEN FOR MANAGEMENT SEE EMAR. EVENING MEDICINE GIVEN AND TPN FLUIDS INFUSING AT NIGHT. POC DONE AND PT UP WITH ASSISTX1 TO THE BATHROOM WILL CONTINUE TO MONITOR TILL EOS.
[2018-11-22 07:25] VITALS: BP 156/98
[2018-11-22 08:37] LABS: POTASSIUM 4.4 mmol/L (3.5-5.1)
[2018-11-22 13:15] VITALS: BP 156/98
--- NOTE | 2018-11-22 15:36 | NUR ---
PT A&OX4, AMBULATES SELF IN ROOM. PICC LINE IN R UA INTACT.ISOLATION FOR MRSA IN NARES. PT C/O SEVERE ABD PAIN AND NAUSEA TODAY. TPN HAS BEEN DC'D, PLANS ARE FOR PT TO DC TOMARROW. WILL CONT POC.
--- NOTE | 2018-11-22 16:10 | NUR ---
PT DISCHARGING TODAY TO HOME WITH [facility] SPOKE WITH INTAKE AND THEY RECEIVED DC ORDERS AND WILL NOTIFY PT TIME OF VISITS.
[2018-11-22 20:20] VITALS: BP 138/82
[2018-11-23 03:00] VITALS: BP 138/91
--- NOTE | 2018-11-23 04:29 | NUR ---
ASSUMED PT CARE AROUND 1900. A&OX4. PT VERY ANXIOUS EARLIER IN THE SHIFT REGARDING HER PAIN AND NAUSEA. PT C/O SIGNIFICANT AMOUNT OF BACK PAIN, ABDOMINAL PAIN, AND NAUSEA. PAIN AND NAUSEA MEDICATIONS GIVEN INDICATED PER EMAR. PT WAS ABLE TO SLEEP FOR A FEW HOURS DURING THE NIGHT. PT STATED THAT SHE IS FEELING BETTER THIS MORNING AND THAT HER PAIN AND NAUSEA HAS IMPROVED. PT STATED SHE FELT LIKE EATING A LITTLE SNACK. PT ENCOURAGED TO EAT SLOWLY TO NOT CAUSE PAIN OR NAUSEA AGAIN. UP AD SANDRA OR UP W/ SBA TO BTR. STEADY GAIT. TOLERATES ACTIVITY WELL. PROGRESSING SLOWLY TOWARD POC GOALS. WILL CONTINUE TO MONITOR FURTHER.
[2018-11-23 08:03] VITALS: BP 135/84
--- NOTE | 2018-11-23 15:25 | NUR ---
WOUND CARE FOLLOW UP; A SMALL AREA TO THE RIGHT POSTERIOR THIGH IS FRAGIALLY HEALED. NO S/S OF INFECTION. THE OLD ABDOMENAL SURICAL INCSISION SITES REMAIN HEALED. THE SKIN FOLDS ARE HEALED AND DRY. THE POSERIOR LEFT CALF HAS AN AREA THAT IS FRAGIALLY HEALED WELL. RECOMMEDNATIONS; WOUND CARE TO LEFT CALF AND RIGHT BUTTOCK: GENTLY CLEANSE WITH WOUND CLEANSER OR NORMAL SALINE, COVER WITH OPTIFOAM BORDER, COMPLETE CARES M/W/F AND PRN USE OTC ANTIBIOTIC OINTMENT TO THE AREAS OF THE BILATERAL LE RN PRESENT
[2018-11-23 16:10] VITALS: BP 140/85
--- NOTE | 2018-11-23 18:12 | NUR ---
PATIENT HAS BEEN IN PAIN MOST OF THE DAY. HAS HAD SEVERAL DOSAGES OF FENTANYL BUT CLAIMS INEFFECTIVE. STATED SPOKE WITH DOCTOR. FENTANYL NOW EVERY 2 HOURS INSTEAD OF 4 - ADJUSTED BY DOCTOR. PATIENT HAS NOT EATEN - HAD BEEN NPO BUT ESCHOPAGOGASTRODOUDENOSCOPY CANCELLED DUE TO GASTRIC SLEEVE TOO DONE NOT LONG AGO.
[2018-11-23 19:35] VITALS: BP 122/71
--- NOTE | 2018-11-24 04:13 | NUR ---
PATIENT ASSESSED AND IS ALERT X 4. SKIN WARM AND DRY. RESP EVEN AND UNLABORED. ABDOMEN SOFT WITH + BS. NO EDEMA NOYTED TO OWER EXTREMITY. TAKES PAIN MEDICATION Q 2 HOURS LIKE CLOCK WORK. COMPLAINS OF BACK AND RIGHT OR LEFT HIP PAIN..NO NAUSEA STATED. HAD A GASTRIC SLEEVE AND HAS BEEN IN PAIN EVER SINCE . UP AD SANDRA IN ROOM A ND WALKED IN HALLWAY. PICC LINE IN RIGHT UPPER ARM FLUSHES WELL BUT HARD. OPTIFOAM ON RIGHT UPPER THIGH IN BACK. NPO AFTER MIDNIGHT.FOR BE AND SWOLLOW STUDY. FULL LIQUID DIET. VS STABLE. CONT PLAN OF CARE. WITH PAIN MEDS.
[2018-11-24 04:45] VITALS: BP 117/64
[2018-11-24 08:16] VITALS: BP 132/89
--- NOTE | 2018-11-24 11:52 | NUR ---
ASSUMED CARE OF PT AT 0700. ASSESSMENT CHARTED. A&O,X4. C/O CHRONIC RIGHT HIP PAIN AND ABD PAIN, PAIN MEDS GIVEN ORDERED. NPO AT BEGINNING OF SHIFT FOR BARIUM SWALLOW TEST, PT LEFT IN STABLE CONDITION. RETURNED WITH N/V FROM ORAL CONTRAST, YELLOW COLOR NOTED. ANTINAUSEA MEDS GIVEN ORDERED. EPISODE RESOLVED, PT AT BASELINE NOW. WILL CONTINUE TO MONITOR FREQUENTLY.
--- NOTE | 2018-11-24 15:11 | NUR ---
CASE DISCUSSED WITH DR FLOYD AND DIET IS BEING ADVANCED TODAY, SCANS WERE ALL NEGATIVE AND PLAN WILL BE TO DC PT HOME TOMORROW IF MEDICALLY STABLE.
[2018-11-24 16:11] VITALS: BP 118/71
[2018-11-24 19:32] VITALS: BP 129/77
--- NOTE | 2018-11-25 03:20 | NUR ---
PAIN ALERT AND ORIENTED X4. C/O PAIN SEVERAL TIMES, MED GIVEN WHEN TIME. UP TO BATHROOM BY SELF. PICC LINE PATENT. INCISIONS ON ABD HEALING. SLEPT LITTLE THIS SHIFT.
[2018-11-25 07:50] VITALS: BP 118/64
[2018-11-25] MEDS ORDERED: PROTONIX 20 MG20 M1 PO (12:42)
[2018-11-25] MEDS ORDERED: TRAZODONE HCL50 MG PO (12:42)
--- NOTE | 2018-11-25 12:44 | NUR ---
WOUND CARE FOLLOW UP; PATIENT TO BE DISCHARGED TODAY. THE RIGHT CALF WOUND IS FRIGIALLY HEALED TODAY. THE CABBED AREA TO THE RIGHT ANTERIOR LE IS DRAINING SCANT SEROSANGINOUS DRAINAGE. RECOMMENDATION; CONTINUE CURRENT TREATMENT DISCUSSED WITH CT
[2018-11-25 13:31] VITALS: BP 156/98
--- NOTE | 2018-11-25 14:00 | NUR ---
DISCHARGE ORDERS COMPLETED. PATIENT DISCHARGING TO HOME WITH [facility]. DISCHARGE/HOME HEALTH ORDERS FAXED TO [facility] INTAKE, VERIFIED RECEIVED. UNIT CM NOTIFIED.
[2018-11-25] MEDS ORDERED: ONDANSETRON HCL4 M2 PO (16:44)
[2018-11-25] MEDS ORDERED: DURAGESIC1 EAC4 TOP (16:44)
--- NOTE | 2018-11-25 17:10 | NUR ---
ASSUMED CARE OF PT AT 0700. ASSESSMENT CHARTED. PT REPORTS FEELING BETTER, IMPROVED NAUSEA, NO VOMITING, TOLERATING PO INTAKE. C/O CHRONIC HIP PAIN, PAIN MEDS GIVEN ORDERED. NEW D/C ORDERS TO HOME WITH HH. JIASON PICC LINE REMOVED, PRESSURE HELD. NO BLEEDING NOTED. PT SHOWERED INDEPENDENTLY. NEW SCRIPTS GIVEN. AT BEDSIDE TO TAKE PT HOME. STATES NO QUESTIONS OR CONCERNS. D/C INSTRUCTIONS GIVEN, NO QUESTIONS OR CONCERNS. PT WILL F/U WITH DR. FLOYD AND DR. HUANG. PT LEFT VIA WHEELCHAIR IN STABLE CONDITION WITH BELONGINGS AT 17:00.
== END 2018-11-25 16:59 | disposition home health service (06) | DRG 392 ==
LOC: ER 07:42 → EROBS 09:37 → 4E 09:37 → 4W 09:37 → 4E 11-17 17:12
PROVIDERS: Emergency Medicine; Hospitalist; Internal Medicine; ADMIT Family Medicine
PROC: 02HV33Z Insertion of Infusion Device into Superior Vena Cava, Percutaneous Approach (ICD-10-PCS; principal; 2018-11-13)
PROC: B548ZZA Ultrasonography of Superior Vena Cava, Guidance (ICD-10-PCS; principal; 2018-11-13)
DX: R13.10 Dysphagia, unspecified (principal); F11.23 Opioid dependence with withdrawal; E46 Unspecified protein-calorie malnutrition; Z68.43 Body mass index [BMI] 50.0-59.9, adult; M06.9 Rheumatoid arthritis, unspecified; K21.9 Gastro-esophageal reflux disease without esophagitis; M25.559 Pain in unspecified hip; F32.9 Major depressive disorder, single episode, unspecified; F41.9 Anxiety disorder, unspecified; J45.909 Unspecified asthma, uncomplicated; G62.9 Polyneuropathy, unspecified; E87.6 Hypokalemia; D86.9 Sarcoidosis, unspecified; E66.01 Morbid (severe) obesity due to excess calories; G89.4 Chronic pain syndrome; M16.10 Unilateral primary osteoarthritis, unspecified hip; Z90.710 Acquired absence of both cervix and uterus; Z88.8 Allergy status to other drugs, medicaments and biological substances; Z87.891 Personal history of nicotine dependence; Z79.899 Other long term (current) drug therapy; Z90.3 Acquired absence of stomach [part of]; Z82.49 Family history of ischemic heart disease and other diseases of the circulatory system; Z81.8 Family history of other mental and behavioral disorders; Z83.6 Family history of other diseases of the respiratory system
CPT/HCPCS: 10040; 10084; 27000

== ENCOUNTER 2019-02-22 12:26 | Inpatient (IN) | payer BC, OTHER ==
[~2019-02-22] VITALS: Ht 185.4 cm; Wt 171.9 kg
[~2019-02-22 12:26] MED LIST changes: +DURAGESIC1 EAC4 TOP; +PROTONIX 20 MG20 M1 PO; +ROBAXIN 750 MG750 MG PO; +TRAZODONE HCL50 MG PO
[2019-02-22 12:27] VITALS: BP 82/65
[2019-02-22] MEDS ORDERED: LYRICA100 MG PO (12:46)
[2019-02-22 13:45] LABS: HEMATOCRIT 38.5 % (37.0-47.0); HEMOGLOBIN 12.2 gm/dL (12.0-15.0); MCH 22.8 pg (26.0-34.0); MCHC 31.6 g/dL (28.0-37.0); MCV 72.2 fL (80.0-100.0); PLATELET COUNT 285 thou/uL (150-400); RBC 5.33 mil/uL (4.20-5.00); RDW 18.3 % (10.5-14.5); WBC 3.8 thou/uL (4.0-11.0)
[2019-02-22 13:52] LABS: CALCIUM 9.8 mg/dL (8.5-10.1); CREATININE 0.9 mg/dL (0.6-1.0); POTASSIUM 3.7 mmol/L (3.5-5.1)
[2019-02-22 13:58] LABS: ALBUMIN 3.1 g/dL (3.4-5.0); TOTAL BILIRUBIN 0.9 mg/dL (<0.1-1.0); TOTAL PROTEIN 7.6 g/dL (6.4-8.2)
[2019-02-22 14:22] LABS: ABSOLUTE NEUTROPHILS 2.3 thou/uL (1.4-8.2); ANISOCYTOSIS 1+; HYPOCHROMASIA 1+; MICROCYTES 1+
[2019-02-22 14:23] LABS: TARGET CELLS FEW
[2019-02-22 17:18] VITALS: BP 118/72
[2019-02-22] MEDS ORDERED: ELIQUIS5 MG PO (19:11)
[2019-02-22] MEDS ORDERED: OXYCODONE HCL30 MG PO (19:12)
[2019-02-22] MEDS ORDERED: PANTOPRAZOLE SO20 MG PO (19:12)
[2019-02-22 19:32] VITALS: BP 152/77
--- NOTE | 2019-02-22 20:06 | NUR ---
ASSUMED CARE OF PATIENT APPROX. 1700. PATIENT A&OX4, C/O OF PAIN. ASSESSMENT COMPLETED. PATIENT URINE DARK YELLOW WITH SEDIMENT. PATIENT UP 1 ASSIST TO BEDSIDE COMMODE. DOCTOR NOTIFIED AND AWAITING ORDERS. NO SIGNS OF DISTRESS. WILL CONTINUE TO MONITOR.
--- NOTE | 2019-02-23 02:21 | NUR ---
Pt. still having periods of being angry about her pain medication. She voices that she has called out three times for pain medication and no one has come. This nurse knows of only one time pt. requesting pain meds. She has been given pain meds (see emar) which pt. reports are not helpful. Pt. also c/o being nausea and refused the po zofran. Pt. verbalized I want what they gave me down in the emergency room. The medication was phenergan. I placed call to Dr. Holley about this. See new orders. Benadryl given as ordered (see emar). Pt. refused the phenergan suppository.
[2019-02-23 04:43] VITALS: BP 156/90
--- NOTE | 2019-02-23 06:00 | NUR ---
Pt. has had periods of being angry about her pain. I spoke to Dr. Holley and he did give a one time order for iv fentanyl (see orders).
[2019-02-23 08:39] VITALS: BP 146/72
[2019-02-23 13:45] VITALS: BP 146/72
--- NOTE | 2019-02-23 13:47 | NUR ---
Case opened to follow for dc planning. Pt is currently out of her room for MRI. She is known to cm from previous admissions. Chart reviewed and case discussed with the care team. Pt admitted with UTI and pain. The pt is currently recieving home health nursing services through [facility]. They can accept her for readmission at [facility]. She lives at home with her spouse and children. She has a rwalker, w/c and hospital bed in place. She report concerns to the ER about her mobility. Will ask for therapy evaluations. She had been seeen by PT in the recent past as well. Await workup and therapy recommendations. Dc plan at this time is to resume her hh at [facility].
[2019-02-23 15:27] VITALS: BP 126/84
--- NOTE | 2019-02-23 20:19 | NUR ---
Assumed Pt care @ 0700 am. Assessment completed, VSS, A&Ox4. Pt anxious to control time meds are given so walks around unit until meds are administered. EGD scheduled for PT and was off unit in the afternoon. Pain management on schedule and Pt is now on 2gm sodium diet.
--- NOTE | 2019-02-23 20:29 | NUR ---
Assumed Pt care @ 0700 am. Assessment completed, VSS, A&Ox4. Pt stated she is in great pain and constantly at high level - 10. Pt grimaces with movement and Dr. Holley visisted with Pt and PT stated she was depressed and in a lot of pain. Pt requested to have Dr. Holley raise Oxycodone level. Pt complains that pain is not diminished and requested to have additional ointment med to be ordered. Pt does not have a good appetite and has been noted in I&O.
[2019-02-23 21:41] VITALS: BP 132/80
[2019-02-24 04:29] LABS: URINE BILIRUBIN NEGATIVE (Negative); URINE BLOOD 2+ (Negative); URINE CLARITY CLEAR; URINE COLOR YELLOW; URINE GLUCOSE-RANDOM* NEGATIVE (Negative); URINE KETONES NEGATIVE (Negative); URINE LEUKOCYTES-REFLEX TRACE (Negative); URINE NITRITE-REFLEX NEGATIVE (Negative); URINE PROTEIN (DIPSTICK) NEGATIVE (Negative); URINE SPECIFIC GRAVITY 1.015 (1.005-1.035); URINE UROBILINOGEN 0.2 E.U./dl (0.2-1.0)
[2019-02-24 04:40] LABS: SQUAMOUS 4-10 Moderate /LPF (0-3)
[2019-02-24 04:41] LABS: BACTERIA-REFLEX 1-9 Few /HPF (None Seen); CALCIUM OXALATE 0-3 Few /LPF (None Seen); CASTS None Seen /LPF (None Seen); MUCUS 0-3 Light strn/LPF (None Seen); URINE WBC-REFLEX 0-5 Rare /HPF (0-5)
--- NOTE | 2019-02-24 08:10 | NUR ---
progress pt a/o x4 up with min assist to bsc. rating pain a 7 to 10 taking 20 mh oxycodone q4hrs. ivf's infusing as ordered. vss lungs clear continue poc.
[2019-02-24 08:45] VITALS: BP 142/84
--- NOTE | 2019-02-24 10:44 | NUR ---
DISCHARGE PLANNING. PATIENT ANTICIPATED TO DISCHARGE TO HOME. PATIENT IS STATES SHE IS ON SERVICE WITH [facility]. CALL PLACED TO VALERIA [facility]IA[facility]. VALERIA CONFIRMED THAT PATIENT IS CURRENT WITH [facility]. CLINICAL INFORMATION FAXED TO [facility]. FOLLOWING.
--- NOTE | 2019-02-24 11:47 | NUR ---
QUINTON reviewed chart and spoke with nursing. QUINTON met with pt at bedside to discuss discharge plan. Pt requests referral to [facility], as she has been there in the past. Will need insurance authorization for post-acute placement. QUINTON updated attending physician and nursing. Attending physician states that pt could be ready for discharge over the weekend. internet media planner to send referral to [facility] for review. SW notified [facility] liaison. QUINTON is following to assist as needed with discharge planning.
[2019-02-24 16:02] VITALS: BP 146/88
--- NOTE | 2019-02-24 16:26 | NUR ---
cm notified by 4w nicole that pt wants to speak with cm. visited with pt at bedside " will if i havent talked with you today dr wants me to go to rehab and i want to know what is going on with that?"/corrie. education that [facility] has to have insurance auth before able to accepted for skilled rehab " ok thank you"/pt.
--- NOTE | 2019-02-24 20:26 | NUR ---
Received awake on bed. Due medications given as prescribed, able to swallow meds w/o difficulty. A+Ox4. On room air. On regular diet; tolerating well, no nausea, no vomiting and no abdominal pain noted. Able to use bedside commode. on standby assist- pt continent. With scabs and scars on bilateral legs- ointment applied, no swelling noted. Vital signs stable. With NS at 100cc/hr, infusing well at L external jugular vein. 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 Pt constantly complained of pain, due PRN pain medication given as prescribed, pt saying there is no pain relief but she is asleep most of the time during re-assessment. Assisted in ADLs.
--- NOTE | 2019-02-25 04:21 | NUR ---
PT CARE ASSUMED AT 1900 WITH PT IN BED.PT IS A/O X4.PT UP WITH SBA AND WALKER TO BATHROOM.IV ACCESS ON LJ WITH NS @100.PT PAIN MGT WITH OXYCODOENE .PT IS ON ISOLATION FOR MRSA NARIS.CONTINUE TO MONITOR
[2019-02-25 08:00] VITALS: BP 137/106
[2019-02-25 15:00] VITALS: BP 170/116
[2019-02-25 18:01] VITALS: BP 161/94
--- NOTE | 2019-02-25 18:40 | NUR ---
PT ALERT AND ORIENTED TIMES FOUR. PT C/O PAIN AND NASUEA SEVERAL TIMES TODAY. MEDICATIONS GIVEN WITH SOME RELEIF. PT UP WITH STANDBY ASSIST. PT TOLERATES MEDS. POOR APPETITE. PT SLOWLY PROGRESSING TOWARDS POC GOALS.
[2019-02-25 19:44] VITALS: BP 142/80
--- NOTE | 2019-02-26 05:47 | NUR ---
PT IS A/O X4.PT WAS DROWSY AT START OF SHIFT BUT AWAKE DURING THE NIGHT.PT IS UP WITH SBA AND WALKER TO BATHROOM.IV ACCESS ON JAISON WITH NS AT 100CC/HR.PT MGT WITH OXYCODONE WITH LITTLE OR NO RELIEF.PT IS ON ROOM AIR.PT HAD ZOFRAN FOR NAUSEA WITH RELIEF.CONTINUE TO MONITOR POC
[2019-02-26 08:29] VITALS: BP 154/89
[2019-02-26 15:16] VITALS: BP 177/83
--- NOTE | 2019-02-26 18:08 | NUR ---
Assumed patient care at 0715. Patient continues on Contact Precautions for MRSA of the wounds. She continues to complain of generalized pain, level "eight to ten" with relief from Oxycodone to a level "six." She needs moderate assistance ambulating with a walker. Appetite is good, as well as fluid intake. Vital signs have been stable. She requested and recieved Ativan 1mg po at 0900 for anxiety; this was effective. IV continues as patent in right upper arm. Normal Saline is running at 100mls per hour as ordered. POC followed. Will continue to monitor.
[2019-02-26 19:22] VITALS: BP 154/85
--- NOTE | 2019-02-27 02:46 | NUR ---
PAIN AND NAUSEA CONTROLLED THIS SHIFT. MULTIPLE WOUNDS ON BLE D/T SACRDOSIS. PATIENT HAD EMESIS X1 AFTER EATING DINNER. PATIENT AMBULATES WITH A WALKER TO THE BATHROOM WITH STEADY GAITS. PATIENT HAD ANXIETY AT AROUND 2100, PRN ATIVAN GIVE. PATIENT IN BED ASLEEP AT THIS TIME BREATHING REGULAR AND UNLABOURED.
--- NOTE | 2019-02-27 07:30 | NUR ---
Nutrition: Pt assessed d/t BMI >40, presently at 50 kg/m2. Admit for UTI, intractable back pain, weakness. Discharge to skilled rehab planned. RD familiar to this pt from October & Nov admits. S/p lap sleeve gastrectomy in 10/2018. Defer additional wt loss education this admit; pt already received extensive education about post op gastric diet. Has lost 63# to date, dropping from 442# on 11/03/18 prior to surgery to CBW of 379# on 02/23/19. This is a 14% anticipated weight loss s/p gastric surgery, over ~4 months time. Note plans for wound care consult for sarcoidosis on legs. Will add Beneprotein modular and send once daily Ensure max for added protein benefit. Low nutrition risk otherwise at this time.
[2019-02-27 08:50] VITALS: BP 149/76
--- NOTE | 2019-02-27 11:41 | NUR ---
WOUND CARE NOTE; pt known to wound team from previous admissions, multiple open lesions bilat lower legs, scant drainage, most lesions < 1cm, pt states wounds are worse,c/o pain w/ wounds, pt requesting ms/silvadene cream as states this helps most w/ pain, DR DUMONT consulted, operations staff specialist security LUIS notified
--- NOTE | 2019-02-27 12:21 | NUR ---
QUINTON reviewed chart and spoke with nursing. Pt is medically stable for discharge to [facility] pending insurance authorization. load planner to fax updates to [facility] for review. QUINTON updated [place] liaison and study coordinator. Awaiting insurance authorization. QUINTON updated attending physician. QUINTON is following to assist as needed with discharge planning.
[2019-02-27] MEDS ORDERED: TRAZODONE HCL50 MG PO (13:07)
--- NOTE | 2019-02-27 14:09 | NUR ---
Assumed patient care at 0715. Vital signs are stable. Patient has been pleasant and calm. She has been napping this afternoon, as she was up at 0300 and unable to go back to sleep. Patient has not had an appetite today; she usually consumes 100 percent of all meals. She has maybe had 50% of both breakfast and lunch. She has ambulated to the restroom with a walker and stand-by assist. Patient is to go to [facility] for further care this afternoon. Will continue to monitor.
--- NOTE | 2019-02-27 15:53 | NUR ---
Patient dischared at 1550 with [employer]. She left with her cell phone, doughmaker, purse and 2 bags that contained personal items.
== END 2019-02-27 16:27 | DRG 552 ==
LOC: ER 12:26 → 4W 15:51 → EROBS 15:51 → 4W 17:18
PROVIDERS: Nurse Practitioner Family; ADMIT Family Medicine
DX: M47.816 Spondylosis without myelopathy or radiculopathy, lumbar region (principal); L97.929 Non-pressure chronic ulcer of unspecified part of left lower leg with unspecified severity; L97.919 Non-pressure chronic ulcer of unspecified part of right lower leg with unspecified severity; N39.0 Urinary tract infection, site not specified; Z68.43 Body mass index [BMI] 50.0-59.9, adult; K59.00 Constipation, unspecified; D86.9 Sarcoidosis, unspecified; E66.01 Morbid (severe) obesity due to excess calories; M06.9 Rheumatoid arthritis, unspecified; K21.9 Gastro-esophageal reflux disease without esophagitis; F32.9 Major depressive disorder, single episode, unspecified; F41.9 Anxiety disorder, unspecified; J45.909 Unspecified asthma, uncomplicated; G62.9 Polyneuropathy, unspecified; Z81.8 Family history of other mental and behavioral disorders; Z82.49 Family history of ischemic heart disease and other diseases of the circulatory system; Z80.9 Family history of malignant neoplasm, unspecified; Z88.8 Allergy status to other drugs, medicaments and biological substances; Z90.710 Acquired absence of both cervix and uterus; Z28.21 Immunization not carried out because of patient refusal
CPT/HCPCS: 10040

== ENCOUNTER 2019-06-19 21:03 | Emergency (ER) | payer BC, OTHER ==
[~2019-06-19] VITALS: Ht 188 cm; Wt 170.1 kg
[~2019-06-19 21:03] MED LIST changes: +ELIQUIS5 MG PO; +PANTOPRAZOLE SO20 MG PO
[2019-06-19 21:38] LABS: ABSOLUTE NEUTROPHILS 3.6 thou/uL (1.4-8.2); EOSINOPHILS 0.9 % (0.0-3.0); HEMATOCRIT 34.4 % (37.0-47.0); HEMOGLOBIN 10.7 gm/dL (12.0-15.0); LYMPHOCYTES 28.4 % (24.0-44.0); MCH 24.2 pg (26.0-34.0); MCHC 31.2 g/dL (28.0-37.0); MCV 77.5 fL (80.0-100.0); MONOCYTES 7.8 % (1.0-8.0); PLATELET COUNT 348 thou/uL (150-400); POLYS 61.9 % (36.0-66.0); RBC 4.43 mil/uL (4.20-5.00); RDW 16.2 % (10.5-14.5); WBC 5.9 thou/uL (4.0-11.0)
[2019-06-19 21:39] LABS: CALCIUM 9.6 mg/dL (8.5-10.1); POTASSIUM 3.6 mmol/L (3.5-5.1)
[2019-06-19 21:45] LABS: ALBUMIN 3.4 g/dL (3.4-5.0); DIRECT BILIRUBIN 0.2 mg/dL (<0.1-0.2); TOTAL BILIRUBIN 0.6 mg/dL (<0.1-1.0); TOTAL PROTEIN 7.3 g/dL (6.4-8.2)
[2019-06-19 23:42] LABS: URINE BILIRUBIN NEGATIVE (Negative); URINE BLOOD NEGATIVE (Negative); URINE CLARITY CLEAR; URINE COLOR YELLOW; URINE GLUCOSE-RANDOM* NEGATIVE (Negative); URINE KETONES TRACE (Negative); URINE LEUKOCYTES-REFLEX NEGATIVE (Negative); URINE NITRITE-REFLEX NEGATIVE (Negative); URINE PROTEIN (DIPSTICK) NEGATIVE (Negative)
[2019-06-20] MEDS ORDERED: ZOFRAN ODT4 MG PO (00:52)
[2019-06-20] MEDS ORDERED: PHENERGAN 25 MG25 M1 PO (00:52)
[2019-06-20 01:07] VITALS: BP 119/64
== END 2019-06-20 01:29 | disposition home or self-care (01) ==
LOC: ER 21:03
PROVIDERS: Emergency Medicine
DX: R11.2 Nausea with vomiting, unspecified (principal); R50.9 Fever, unspecified; R06.02 Shortness of breath; K21.9 Gastro-esophageal reflux disease without esophagitis; M06.9 Rheumatoid arthritis, unspecified; J45.909 Unspecified asthma, uncomplicated; G62.9 Polyneuropathy, unspecified; F17.210 Nicotine dependence, cigarettes, uncomplicated; Z79.899 Other long term (current) drug therapy; Z98.84 Bariatric surgery status

== ENCOUNTER → 2019-11-08 | Outpatient (CLI) | payer BC, OTHER ==
[~2019-11-08] MED LIST changes: +PHENERGAN 25 MG25 M1 PO; +ZOFRAN ODT4 MG PO
== END ==
LOC: ULTRA 14:13
PROVIDERS: ATTEND Family Medicine
DX: N83.292 Other ovarian cyst, left side (principal); N83.291 Other ovarian cyst, right side; R14.0 Abdominal distension (gaseous); R59.0 Localized enlarged lymph nodes; Z90.710 Acquired absence of both cervix and uterus

== ENCOUNTER 2019-11-20 12:56 | Emergency (ER) | payer BC, OTHER ==
[~2019-11-20] VITALS: Ht 188 cm; Wt 143.3 kg
[2019-11-20 14:18] LABS: ABSOLUTE NEUTROPHILS 2.9 thou/uL (1.4-8.2); BASOPHILS 0.9 % (0.0-2.0); EOSINOPHILS 1.4 % (0.0-3.0); HEMATOCRIT 33.1 % (37.0-47.0); HEMOGLOBIN 10.5 gm/dL (12.0-15.0); LYMPHOCYTES 32.5 % (24.0-44.0); MCH 23.5 pg (26.0-34.0); MCHC 31.8 g/dL (28.0-37.0); MCV 73.9 fL (80.0-100.0); MONOCYTES 7.4 % (1.0-8.0); PLATELET COUNT 238 thou/uL (150-400); POLYS 57.8 % (36.0-66.0); RBC 4.48 mil/uL (4.20-5.00); RDW 17.2 % (10.5-14.5); WBC 5.1 thou/uL (4.0-11.0)
[2019-11-20 14:27] LABS: ANION GAP 7 mmol/L (7-16); BUN 13 mg/dL (7-18); CALCIUM 8.8 mg/dL (8.5-10.1); CHLORIDE 107 mmol/L (98-107); CO2 27 mmol/L (21-32); GLUCOSE 83 mg/dL (74-106); POTASSIUM 3.6 mmol/L (3.5-5.1); SODIUM 141 mmol/L (136-145)
[2019-11-20 14:37] LABS: ALBUMIN 3.2 g/dL (3.4-5.0); DIRECT BILIRUBIN 0.1 mg/dL (<0.1-0.2); SGOT 20 U/L (15-37); SGPT 14 U/L (30-65); TOTAL BILIRUBIN 0.8 mg/dL (0.2-1.0); TOTAL PROTEIN 6.6 g/dL (6.4-8.2); TROPONIN-I <0.06 ng/mL (<0.06)
[2019-11-20 14:41] LABS: ANISOCYTOSIS 1+; MICROCYTES 2+; PLATELET ESTIMATE NORMAL
[2019-11-20] MEDS ORDERED: NORCO 5-325 TA1 EAC2 PO (15:47)
[2019-11-20] MEDS ORDERED: PREDNISONE 10 M10 M1 PO (15:47)
[2019-11-20] MEDS ORDERED: BACTRIM DS TAB1 EACH PO (15:59)
[2019-11-20 16:39] VITALS: BP 142/83
--- NOTE | 2019-11-21 07:49 | EKG ---
[facility] [place] [address] ELECTROCARDIOGRAM REPORT Name: UCHE TRAN [id number] Admission: 11/20/19 Attend Phys: Discharge: 11/20/19 Date of : 76 Report #: [id number] THIS REPORT FOR: cc: Clive Holley MD, Neal A. MD Lundgren,Vladislav Monet MD [facility] ~ THIS REPORT FOR: //name// [facility] ED Test Date: 2019-11-20 Test Time: 13:07:19 Pat Name: UCHE TRAN Department: Room: Gender: F Customer Order Clerk: DEZ : 1980 Requested By: Citlali Robert Order Number: [id number] MD: Vladislav Schmidt Measurements Intervals [place] Rate: 68 P: -15 CA: 195 QRS: 5 QRSD: 100 T: 8 QT: 414 QTc: 441 Interpretive Statements Sinus rhythm Abnormal R-wave progression, early transition Borderline T abnormalities, anterior leads Compared to ECG 11/01/2018 14:20:09 First degree AV block no longer present Electronically Signed On 11-21-2019 7:49:32 CDT by Vladislav Schmidt [email or web address] <ELECTRONICALLY SIGNED> By: Vladislav Schmidt MD, [facility] 11/21/19 0749 1307 1307 Vladislav Schmidt MD, FAC /EPI
== END 2019-11-20 16:40 | disposition home or self-care (01) ==
LOC: ER 12:56
PROVIDERS: Emergency Medicine
DX: J06.9 Acute upper respiratory infection, unspecified (principal); Z20.828 Contact with and (suspected) exposure to other viral communicable diseases; D86.9 Sarcoidosis, unspecified; L08.9 Local infection of the skin and subcutaneous tissue, unspecified; K21.9 Gastro-esophageal reflux disease without esophagitis; M06.9 Rheumatoid arthritis, unspecified; F32.9 Major depressive disorder, single episode, unspecified; F41.9 Anxiety disorder, unspecified; J45.909 Unspecified asthma, uncomplicated; G62.9 Polyneuropathy, unspecified; Z79.899 Other long term (current) drug therapy; Z88.8 Allergy status to other drugs, medicaments and biological substances; Z87.891 Personal history of nicotine dependence; Z98.51 Tubal ligation status; Z90.711 Acquired absence of uterus with remaining cervical stump

== ENCOUNTER 2019-12-08 21:24 | Emergency (ER) | payer BC, OTHER ==
[~2019-12-08] VITALS: Ht 188 cm; Wt 143.3 kg
[~2019-12-08 21:24] MED LIST changes: +NORCO 5-325 TA1 EAC2 PO; +PREDNISONE 10 M10 M1 PO
[2019-12-09 01:05] LABS: ABSOLUTE NEUTROPHILS 2.1 thou/uL (1.4-8.2); BASOPHILS 0.8 % (0.0-2.0); HEMATOCRIT 34.5 % (37.0-47.0); HEMOGLOBIN 10.8 gm/dL (12.0-15.0); LYMPHOCYTES 40.1 % (24.0-44.0); MCH 23.1 pg (26.0-34.0); MCHC 31.4 g/dL (28.0-37.0); MCV 73.7 fL (80.0-100.0); MONOCYTES 8.1 % (1.0-8.0); PLATELET COUNT 209 thou/uL (150-400); RBC 4.68 mil/uL (4.20-5.00); RDW 17.3 % (10.5-14.5); WBC 4.4 thou/uL (4.0-11.0)
[2019-12-09 01:15] LABS: CALCIUM 8.6 mg/dL (8.5-10.1); POTASSIUM 5.3 mmol/L (3.5-5.1)
[2019-12-09 01:20] LABS: ALBUMIN 3.1 g/dL (3.4-5.0); DIRECT BILIRUBIN 0.1 mg/dL (<0.1-0.2); TOTAL PROTEIN 6.6 g/dL (6.4-8.2)
[2019-12-09 01:47] LABS: ANISOCYTOSIS 1+; HYPOCHROMASIA 1+; LARGE PLATELETS OCCASIONAL; MICROCYTES 1+; OVALOCYTES 1+
[2019-12-09] MEDS ORDERED: LIDOCAINE VISC100 ML PO (02:28)
[2019-12-09] MEDS ORDERED: DURAGESIC1 EAC5 TOP (02:28)
[2019-12-09] MEDS ORDERED: DIPHENHYDR12.5 MG/5 PO (02:28)
[2019-12-09 03:35] VITALS: BP 127/71
== END 2019-12-09 03:36 | disposition home or self-care (01) ==
LOC: ER 21:24
PROVIDERS: Emergency Medicine
DX: D86.9 Sarcoidosis, unspecified (principal); E66.01 Morbid (severe) obesity due to excess calories; J45.909 Unspecified asthma, uncomplicated; K21.9 Gastro-esophageal reflux disease without esophagitis; M06.9 Rheumatoid arthritis, unspecified; G62.9 Polyneuropathy, unspecified; G47.30 Sleep apnea, unspecified; G89.29 Other chronic pain; F32.9 Major depressive disorder, single episode, unspecified; F41.9 Anxiety disorder, unspecified; Z68.41 Body mass index [BMI] 40.0-44.9, adult; Z98.51 Tubal ligation status; Z90.710 Acquired absence of both cervix and uterus; Z86.14 Personal history of Methicillin resistant Staphylococcus aureus infection; Z87.891 Personal history of nicotine dependence; Z88.6 Allergy status to analgesic agent; Z88.8 Allergy status to other drugs, medicaments and biological substances

== ENCOUNTER → 2019-12-20 | Outpatient (CLI) | payer BC, OTHER ==
[~2019-12-20] MED LIST changes: +DIPHENHYDR12.5 MG/5 PO; +DURAGESIC1 EAC5 TOP; +LIDOCAINE VISC100 ML PO
== END ==
LOC: HYPER 13:05
PROVIDERS: ATTEND Emergency Medicine
DX: L97.812 Non-pressure chronic ulcer of other part of right lower leg with fat layer exposed (principal); L97.822 Non-pressure chronic ulcer of other part of left lower leg with fat layer exposed; D86.0 Sarcoidosis of lung; E66.01 Morbid (severe) obesity due to excess calories; G47.33 Obstructive sleep apnea (adult) (pediatric); G25.81 Restless legs syndrome; I50.32 Chronic diastolic (congestive) heart failure; K21.9 Gastro-esophageal reflux disease without esophagitis; M19.90 Unspecified osteoarthritis, unspecified site; Z79.01 Long term (current) use of anticoagulants; Z79.52 Long term (current) use of systemic steroids; Z87.891 Personal history of nicotine dependence; Z68.41 Body mass index [BMI] 40.0-44.9, adult; Z90.710 Acquired absence of both cervix and uterus

== ENCOUNTER → 2019-12-20 | Outpatient (CLI) | payer BC, OTHER | LOC: CAT 08:56 | PROVIDERS: ATTEND Family Medicine | DX: N83.209 Unspecified ovarian cyst, unspecified side (principal); R59.0 Localized enlarged lymph nodes; R14.0 Abdominal distension (gaseous); Z90.710 Acquired absence of both cervix and uterus; Z98.890 Other specified postprocedural states; Z96.643 Presence of artificial hip joint, bilateral ==

== ENCOUNTER → 2020-01-03 | Outpatient (CLI) | payer BC, OTHER | LOC: SJCVCIMAG 12-27 12:42 | PROVIDERS: ATTEND Emergency Medicine | DX: I73.9 Peripheral vascular disease, unspecified (principal); L97.818 Non-pressure chronic ulcer of other part of right lower leg with other specified severity; L97.828 Non-pressure chronic ulcer of other part of left lower leg with other specified severity ==

== ENCOUNTER → 2020-01-17 | Outpatient (CLI) | payer BC, OTHER | LOC: HYPER 01-10 17:16 | PROVIDERS: ATTEND Emergency Medicine | DX: L97.822 Non-pressure chronic ulcer of other part of left lower leg with fat layer exposed (principal); L97.812 Non-pressure chronic ulcer of other part of right lower leg with fat layer exposed; D86.0 Sarcoidosis of lung; E66.01 Morbid (severe) obesity due to excess calories; G47.33 Obstructive sleep apnea (adult) (pediatric); G25.81 Restless legs syndrome; I50.32 Chronic diastolic (congestive) heart failure; K21.9 Gastro-esophageal reflux disease without esophagitis; M19.90 Unspecified osteoarthritis, unspecified site; Z68.41 Body mass index [BMI] 40.0-44.9, adult; Z79.01 Long term (current) use of anticoagulants; Z79.52 Long term (current) use of systemic steroids; Z87.891 Personal history of nicotine dependence ==

== ENCOUNTER → 2020-02-01 | Outpatient (CLI) | payer BC, OTHER | LOC: LAB 10:45 | PROVIDERS: ATTEND Nurse Practitioner | DX: Z20.828 Contact with and (suspected) exposure to other viral communicable diseases (principal) ==

== ENCOUNTER 2020-03-05 18:44 | Emergency (ER) | payer BC, OTHER ==
[~2020-03-05] VITALS: Ht 188 cm; Wt 140.6 kg
[2020-03-05] MEDS ORDERED: LYRICA100 MG PO (19:18)
[2020-03-05 19:51] LABS: ABSOLUTE NEUTROPHILS 3.1 thou/uL (1.4-8.2); BASOPHILS 0.7 % (0.0-2.0); EOSINOPHILS 0.8 % (0.0-3.0); HEMATOCRIT 35.8 % (37.0-47.0); HEMOGLOBIN 11.4 gm/dL (12.0-15.0); LYMPHOCYTES 29.1 % (24.0-44.0); MCH 24.2 pg (26.0-34.0); MCHC 31.8 g/dL (28.0-37.0); MCV 76.1 fL (80.0-100.0); MONOCYTES 8.1 % (1.0-8.0); PLATELET COUNT 205 thou/uL (150-400); POLYS 61.3 % (36.0-66.0); RBC 4.71 mil/uL (4.20-5.00); RDW 15.7 % (10.5-14.5)
[2020-03-05 20:01] LABS: ANION GAP 9 mmol/L (7-16); BUN 13 mg/dL (7-18); CHLORIDE 102 mmol/L (98-107); CO2 27 mmol/L (21-32); GLUCOSE 90 mg/dL (74-106); POTASSIUM 3.8 mmol/L (3.5-5.1); SODIUM 138 mmol/L (136-145)
[2020-03-05 20:10] LABS: TROPONIN-I <0.06 ng/mL (<0.06)
[2020-03-05] MEDS ORDERED: MOBIC15 MG PO (22:14)
[2020-03-05] MEDS ORDERED: NORCO 5-325 TA1 EAC2 PO (22:14)
[2020-03-05 23:07] VITALS: BP 134/81
--- NOTE | 2020-03-06 07:07 | EKG ---
[facility] [place] [address] ELECTROCARDIOGRAM REPORT Name: UCHE TRAN Edward Room #: [facility].#: [id number] Admission: 03/05/20 Attend Phys: Discharge: 03/05/20 Date of : 76 Report #: [id number] THIS REPORT FOR: cc: Clive Holley MD, Neal A. MD Santiago, Patrick MD [facility] ~ THIS REPORT FOR: //name// [facility] ED Test Date: 2020-03-05 Test Time: 18:40:46 Pat Name: UCHE TRAN Department: Room: Gender: F Machine Specialist: [facility] : 1980 Requested By: Citlali Robert Order Number: [id number] MD: Qamar Ernst Measurements Intervals [place] Rate: 74 P: 27 MT: 192 QRS: 19 QRSD: 93 T: 38 QT: 379 QTc: 421 Interpretive Statements Sinus rhythm Abnormal R-wave progression, early transition Non specific ST-T changes Baseline wander in lead(s) II Compared to ECG 11/20/2019 13:07:19 ST (T wave) deviation now present T-wave abnormality no longer present Electronically Signed On 03-06-2020 7:07:06 PHARMACEUTICAL SALESPERSON by Qamar Ernst [email or web address] <ELECTRONICALLY SIGNED> By: Qamar Ernst MD, FACC 03/06/20 [phone] 39 Qamar Ernst MD, [facility] /EPI
== END 2020-03-05 23:08 | disposition home or self-care (01) ==
LOC: ER 18:44
PROVIDERS: Emergency Medicine
DX: R09.1 Pleurisy (principal); K21.9 Gastro-esophageal reflux disease without esophagitis; J45.909 Unspecified asthma, uncomplicated; Z90.710 Acquired absence of both cervix and uterus; Z79.899 Other long term (current) drug therapy; Z87.891 Personal history of nicotine dependence; Z88.8 Allergy status to other drugs, medicaments and biological substances; Z20.828 Contact with and (suspected) exposure to other viral communicable diseases

== ENCOUNTER 2020-05-06 11:07 | Emergency (ER) | payer BC, OTHER ==
[~2020-05-06] VITALS: Ht 188 cm; Wt 136.1 kg
[2020-05-06] MEDS ORDERED: BACTRIM DS TAB1 EACH PO (11:16)
[2020-05-06 12:18] LABS: HEMATOCRIT 35.3 % (37.0-47.0); HEMOGLOBIN 10.8 gm/dL (12.0-15.0); MCH 23.9 pg (26.0-34.0); MCHC 30.6 g/dL (28.0-37.0); MCV 77.9 fL (80.0-100.0); PLATELET COUNT 228 thou/uL (150-400); RBC 4.53 mil/uL (4.20-5.00); RDW 15.2 % (10.5-14.5); WBC 2.9 thou/uL (4.0-11.0)
[2020-05-06 12:39] LABS: ANION GAP 6 mmol/L (7-16); BUN 19 mg/dL (7-18); CALCIUM 8.7 mg/dL (8.5-10.1); CHLORIDE 105 mmol/L (98-107); CO2 26 mmol/L (21-32); CREATININE 1.2 mg/dL (0.6-1.0); GLUCOSE 89 mg/dL (74-106); POTASSIUM 4.3 mmol/L (3.5-5.1); SODIUM 137 mmol/L (136-145)
[2020-05-06 12:47] LABS: TROPONIN-I <0.06 ng/mL (<0.06)
--- NOTE | 2020-05-06 13:59 | EKG ---
[place] [address] [facility] [place] [address] ELECTROCARDIOGRAM REPORT Name: UCHE TRAN Room #: [facility]#: [id number] Admission: 05/06/20 Attend Phys: Discharge: Date of : 76 Report #: [id number] [facility] ED Test Date: 2020-05-06 Test Time: 11:11:42 Pat Name: UCHE TRAN Department: Room: Gender: F Hydraulic Pile Hammer Operator: GRZEGORZ : 1980 Requested By: Citlali Robert Order Number: [id number] MD: Qamar Ernst Measurements Intervals [place] Rate: 65 P: 8 DC: 196 QRS: 13 QRSD: 109 T: 22 QT: 408 QTc: 425 Interpretive Statements Sinus rhythm Compared to ECG 03/05/2020 18:40:46 ST (T wave) deviation no longer present Electronically Signed On 05-06-2020 13:59:24 WELDER EXPERIMENTAL by Qamar Ernst [email or web address] <ELECTRONICALLY SIGNED> By: Qamar Ernst MD, [facility] 05/06/20 1359 1111 1111 Qamar Ernst MD, FACCarrie /EPI
[2020-05-06 15:08] LABS: HYPOCHROMASIA 1+; MICROCYTES 1+
[2020-05-06 15:13] VITALS: BP 119/80
== END 2020-05-06 15:13 | disposition home or self-care (01) ==
LOC: ER 11:07
PROVIDERS: Emergency Medicine
DX: R07.89 Other chest pain (principal); L08.89 Other specified local infections of the skin and subcutaneous tissue; G89.29 Other chronic pain; J45.909 Unspecified asthma, uncomplicated; M06.9 Rheumatoid arthritis, unspecified; K21.9 Gastro-esophageal reflux disease without esophagitis; G62.9 Polyneuropathy, unspecified; Z87.891 Personal history of nicotine dependence; Z88.6 Allergy status to analgesic agent; Z88.8 Allergy status to other drugs, medicaments and biological substances; Z79.899 Other long term (current) drug therapy; Z98.51 Tubal ligation status; Z90.710 Acquired absence of both cervix and uterus

== ENCOUNTER → 2020-07-01 | Outpatient (CLI) | payer BC, OTHER | LOC: HYPER 14:44 | PROVIDERS: ATTEND Emergency Medicine Emergency Medical Services | DX: L97.812 Non-pressure chronic ulcer of other part of right lower leg with fat layer exposed (principal); D86.0 Sarcoidosis of lung; E66.01 Morbid (severe) obesity due to excess calories; G47.33 Obstructive sleep apnea (adult) (pediatric); G25.81 Restless legs syndrome; I50.32 Chronic diastolic (congestive) heart failure; K21.9 Gastro-esophageal reflux disease without esophagitis; M19.90 Unspecified osteoarthritis, unspecified site; Z79.01 Long term (current) use of anticoagulants; Z79.52 Long term (current) use of systemic steroids; Z90.710 Acquired absence of both cervix and uterus; Z68.41 Body mass index [BMI] 40.0-44.9, adult ==

== ENCOUNTER 2020-07-31 10:32 | Emergency (ER) | payer BC, OTHER ==
[~2020-07-31] VITALS: Ht 188 cm; Wt 123.8 kg
[2020-07-31 11:31] LABS: HEMATOCRIT 37.8 % (37.0-47.0); HEMOGLOBIN 12.2 gm/dL (12.0-15.0); MCH 25.2 pg (26.0-34.0); MCHC 32.1 g/dL (28.0-37.0); MCV 78.3 fL (80.0-100.0); PLATELET COUNT 216 thou/uL (150-400); RBC 4.83 mil/uL (4.20-5.00); WBC 2.9 thou/uL (4.0-11.0)
[2020-07-31 12:50] LABS: ABSOLUTE NEUTROPHILS 1.3 thou/uL (1.4-8.2)
[2020-07-31 12:51] LABS: OVALOCYTES OCCASIONAL; POLYCHROMASIA SLIGHT; TARGET CELLS OCCASIONAL; TEARDROPS OCCASIONAL
[2020-07-31 13:16] LABS: ANION GAP 6 mmol/L (7-16); BUN 15 mg/dL (7-18); CALCIUM 8.5 mg/dL (8.5-10.1); CHLORIDE 109 mmol/L (98-107); CO2 26 mmol/L (21-32); CREATININE 1.1 mg/dL (0.6-1.0); GLUCOSE 87 mg/dL (74-106); SODIUM 141 mmol/L (136-145)
[2020-07-31 13:25] LABS: SGOT 14 U/L (15-37); SGPT 15 U/L (14-59); TOTAL PROTEIN 6.2 g/dL (6.4-8.2); TROPONIN-I <0.06 ng/mL (<0.06)
[2020-07-31] MEDS ORDERED: LIDODERM1 EACH TOP (16:48)
[2020-07-31] MEDS ORDERED: MEDROLDOSEPACK PO (16:48)
[2020-07-31] MEDS ORDERED: DIAZEPAM 5 MG5 M1 PO (16:48)
[2020-07-31 17:10] VITALS: BP 124/61
--- NOTE | 2020-07-31 17:36 | EKG ---
[place] [address] [facility] [place] [address] ELECTROCARDIOGRAM REPORT Name: UCHE TRAN Room #: [facility]#: [id number] Admission: 07/31/20 Attend Phys: Discharge: 07/31/20 Date of : 76 Report #: [id number] [facility] ED Test Date: 2020-07-31 Test Time: 10:39:05 Pat Name: UCHE TRAN Department: Room: Gender: F Digital Publishing Specialist: JCHAISAGRARIO : 1980 Requested By: Jeannie Barajas Order Number: [id number] MD: Vladislav Schmidt Measurements Intervals [place] Rate: 49 P: 22 MA: 203 QRS: 49 QRSD: 108 T: 59 QT: 423 QTc: 382 Interpretive Statements Sinus bradycardia Early R wave progression Compared to ECG 05/06/2020 11:11:42 No significant changes found Electronically Signed On 07-31-2020 17:36:15 CDT by Vladislav Schmidt [email or web address] <ELECTRONICALLY SIGNED> By: Vladislav Schmidt MD, [facility] 07/31/20 1736 1039 1039 Vladislav Schmidt MD, FACC /EPI
== END 2020-07-31 17:12 | disposition home or self-care (01) ==
LOC: ER 10:32
PROVIDERS: Emergency Medicine
DX: R07.89 Other chest pain (principal); D86.89 Sarcoidosis of other sites; K21.9 Gastro-esophageal reflux disease without esophagitis; M06.9 Rheumatoid arthritis, unspecified; G89.29 Other chronic pain; F12.90 Cannabis use, unspecified, uncomplicated; Z79.899 Other long term (current) drug therapy; Z87.891 Personal history of nicotine dependence; Z88.6 Allergy status to analgesic agent; Z88.8 Allergy status to other drugs, medicaments and biological substances; Z98.51 Tubal ligation status

== ENCOUNTER → 2020-08-30 | Outpatient (CLI) | payer BC, OTHER ==
[~2020-08-30] MED LIST changes: +DIAZEPAM 5 MG5 M1 PO; +LIDODERM1 EACH TOP; +MEDROLDOSEPACK PO
== END ==
LOC: ULTRA 10:56
PROVIDERS: ATTEND Nurse Practitioner
DX: E04.9 Nontoxic goiter, unspecified (principal)

== ENCOUNTER 2020-09-20 10:24 | Emergency (ER) | payer BC, OTHER ==
[~2020-09-20] VITALS: Ht 188 cm; Wt 120.2 kg
[2020-09-20 12:24] LABS: CALCIUM 8.8 mg/dL (8.5-10.1); CREATININE 1.1 mg/dL (0.6-1.0); POTASSIUM 4.3 mmol/L (3.5-5.1)
[2020-09-20 12:31] LABS: ALBUMIN 3.2 g/dL (3.4-5.0); TOTAL BILIRUBIN 0.9 mg/dL (0.2-1.0); TOTAL PROTEIN 6.4 g/dL (6.4-8.2)
[2020-09-20 12:40] LABS: HEMATOCRIT 35.6 % (37.0-47.0); HEMOGLOBIN 11.3 gm/dL (12.0-15.0); MCH 24.9 pg (26.0-34.0); MCHC 31.7 g/dL (28.0-37.0); MCV 78.6 fL (80.0-100.0); PLATELET COUNT 182 thou/uL (150-400); RBC 4.53 mil/uL (4.20-5.00); RDW 14.8 % (10.5-14.5); WBC 2.9 thou/uL (4.0-11.0)
[2020-09-20 12:47] LABS: URINE BILIRUBIN NEGATIVE (Negative); URINE BLOOD NEGATIVE (Negative); URINE CLARITY CLEAR; URINE COLOR YELLOW; URINE GLUCOSE-RANDOM* NEGATIVE (Negative); URINE KETONES NEGATIVE (Negative); URINE LEUKOCYTES-REFLEX NEGATIVE (Negative); URINE NITRITE-REFLEX NEGATIVE (Negative); URINE PROTEIN (DIPSTICK) NEGATIVE (Negative)
[2020-09-20 13:26] LABS: ABSOLUTE NEUTROPHILS 1.3 thou/uL (1.4-8.2)
[2020-09-20] MEDS ORDERED: MUPIROCIN15 GM TOP (14:17)
[2020-09-20] MEDS ORDERED: NORCO 10-325 T1 EACH PO (14:37)
[2020-09-20 14:58] VITALS: BP 145/78
== END 2020-09-20 14:58 | disposition home or self-care (01) ==
LOC: ER 10:24
PROVIDERS: Physician Assistant
DX: S81.801D Unspecified open wound, right lower leg, subsequent encounter (principal); R11.2 Nausea with vomiting, unspecified; R19.7 Diarrhea, unspecified; M06.9 Rheumatoid arthritis, unspecified; K21.9 Gastro-esophageal reflux disease without esophagitis; J45.909 Unspecified asthma, uncomplicated; G62.9 Polyneuropathy, unspecified; Z88.6 Allergy status to analgesic agent; Z88.8 Allergy status to other drugs, medicaments and biological substances; Z87.891 Personal history of nicotine dependence; Z79.899 Other long term (current) drug therapy; X58.XXXD Exposure to other specified factors, subsequent encounter

== ENCOUNTER 2020-12-17 18:52 | Emergency (ER) | payer BC, OTHER ==
[~2020-12-17] VITALS: Ht 182.9 cm; Wt 113.4 kg
[~2020-12-17 18:52] MED LIST changes: +MUPIROCIN15 GM TOP
[2020-12-17 20:42] LABS: ABSOLUTE NEUTROPHILS 1.8 thou/uL (1.4-8.2); BASOPHILS 0.9 % (0.0-2.0); EOSINOPHILS 1.5 % (0.0-3.0); HEMATOCRIT 33.2 % (37.0-47.0); HEMOGLOBIN 10.8 gm/dL (12.0-15.0); LYMPHOCYTES 40.1 % (24.0-44.0); MCH 25.6 pg (26.0-34.0); MCHC 32.4 g/dL (28.0-37.0); MONOCYTES 8.8 % (1.0-8.0); PLATELET COUNT 190 thou/uL (150-400); POLYS 48.7 % (36.0-66.0); RDW 14.6 % (10.5-14.5); WBC 3.8 thou/uL (4.0-11.0)
[2020-12-17 20:46] LABS: CALCIUM 8.6 mg/dL (8.5-10.1); CREATININE 1.1 mg/dL (0.6-1.0); POTASSIUM 3.7 mmol/L (3.5-5.1)
[2020-12-17] MEDS ORDERED: MELATONIN5 MG SUBLING (20:48)
[2020-12-17] MEDS ORDERED: HYDROXYCHLOROQ200 M1 PO (20:55)
[2020-12-17 20:57] LABS: ALBUMIN 3.2 g/dL (3.4-5.0); TOTAL BILIRUBIN 0.7 mg/dL (0.2-1.0); TOTAL PROTEIN 6.2 g/dL (6.4-8.2)
[2020-12-17] MEDS ORDERED: EC-NAPROXEN500 MG PO (23:16)
[2020-12-17 23:23] VITALS: BP 135/86
--- NOTE | 2020-12-18 08:28 | EKG ---
[place] [address] [place] [address] ELECTROCARDIOGRAM REPORT Name: UCHE TRAN [facility] [id number] Admission: 12/17/20 Attend Phys: Discharge: 12/17/20 Date of : 76 Report #: [id number] [facility] ED Test Date: 2020-12-17 Test Time: 18:58:17 Pat Name: UCHE TRAN Department: Room: Gender: F Neurology Professor: yann : 1980 Requested By: Citlali Robert Order Number: [id number] MD: Vladislav Schmidt Measurements Intervals [place] Rate: 64 P: 41 ID: 202 QRS: 13 QRSD: 122 T: 45 QT: 416 QTc: 430 Interpretive Statements Sinus rhythm Borderline prolonged ID interval Early R wave progression Baseline wander in lead(s) V5 Compared to ECG 07/31/2020 10:39:05 No significant change was found Electronically Signed On 12-18-2020 8:27:54 CDT by Vladislav Schmidt [email or web address] <ELECTRONICALLY SIGNED> By: Vladislav Schmidt MD, [facility] 12/18/20826 57 Vladislav Schmidt MD, [facility] /EPI
== END 2020-12-17 23:17 | disposition home or self-care (01) ==
LOC: ER 18:52
PROVIDERS: Emergency Medicine
DX: R07.89 Other chest pain (principal); Z20.822 Contact with and (suspected) exposure to COVID-19; M06.9 Rheumatoid arthritis, unspecified; K21.9 Gastro-esophageal reflux disease without esophagitis; F32.9 Major depressive disorder, single episode, unspecified; F41.9 Anxiety disorder, unspecified; J45.909 Unspecified asthma, uncomplicated; Z79.899 Other long term (current) drug therapy; Z98.51 Tubal ligation status; Z90.710 Acquired absence of both cervix and uterus; Z87.891 Personal history of nicotine dependence; Z88.5 Allergy status to narcotic agent; Z88.8 Allergy status to other drugs, medicaments and biological substances; Z88.2 Allergy status to sulfonamides

== ENCOUNTER 2020-12-30 10:00 | Emergency (ER) | payer BC, OTHER ==
[~2020-12-30] VITALS: Ht 188 cm; Wt 113.4 kg
[~2020-12-30 10:00] MED LIST changes: +EC-NAPROXEN500 MG PO; +MELATONIN5 MG SUBLING
[2020-12-30 11:41] LABS: ABSOLUTE NEUTROPHILS 2.1 thou/uL (1.4-8.2); BASOPHILS 0.9 % (0.0-2.0); EOSINOPHILS 1.5 % (0.0-3.0); HEMATOCRIT 36.6 % (37.0-47.0); HEMOGLOBIN 11.5 gm/dL (12.0-15.0); LYMPHOCYTES 34.9 % (24.0-44.0); MCH 24.8 pg (26.0-34.0); MCHC 31.6 g/dL (28.0-37.0); MCV 78.5 fL (80.0-100.0); MONOCYTES 10.6 % (1.0-8.0); PLATELET COUNT 205 thou/uL (150-400); POLYS 52.1 % (36.0-66.0); RBC 4.65 mil/uL (4.20-5.00); RDW 14.8 % (10.5-14.5)
[2020-12-30 11:54] LABS: CREATININE 0.9 mg/dL (0.6-1.0); POTASSIUM 4.3 mmol/L (3.5-5.1)
[2020-12-30 11:57] LABS: ALBUMIN 3.4 g/dL (3.4-5.0); TOTAL BILIRUBIN 0.9 mg/dL (0.2-1.0); TOTAL PROTEIN 6.7 g/dL (6.4-8.2)
[2020-12-30 15:03] VITALS: BP 118/72
== END 2020-12-30 15:04 | disposition home or self-care (01) ==
LOC: ER 10:00
PROVIDERS: Emergency Medicine
DX: K59.00 Constipation, unspecified (principal); R11.2 Nausea with vomiting, unspecified

== ENCOUNTER → 2021-04-17 | Outpatient (CLI) | payer BC, OTHER | LOC: ULTRA 12:56 | PROVIDERS: ATTEND Nurse Practitioner | DX: M79.662 Pain in left lower leg (principal) ==